=== PATIENT | male | born 1945 | race African-American/Black ===

== ENCOUNTER 2018-09-15 22:00 | Inpatient (IN) | payer MEDICARE, MEDICAID ==
[~2018-09-15 22:00] MED LIST: ISOVUE-370 76%-LOCM 1 ML ONE
[2018-09-15] MEDS ORDERED: Nitroglycerin 2% Ointment 1 INCH/1 GM Packet ONE (22:14)
--- NOTE | 2018-09-16 00:09 | CT ---
CTA CHEST AND ABDOMEN: 09/15/18 Axial tomograms obtained through the chest and abdomen following an aortogram protocol. INDICATIONS: Question abdominal aortic aneurysm. FINDINGS: Thoracic aorta shows no evidence of aneurysm or dissection. The abdominal aorta shows no evidence of aneurysm or dissection. The aortic branches including celiac artery, superior mesenteric artery and r enal arteries are unremarkable with no significant atherosclerotic change or stenosis. Aortic bifurc ation unremarkable. Iliac arteries are normal and symmetric in appearance. The lung antonio are clear. No infiltrate or effusion. Mediastinum unremarkable. The pulmonary arteri es show moderate opacification. There is no evidence of proximal pulmonary embolus. Soft tissues of the abdomen show unremarkable liver, spleen, pancreas, adrenal glands and kidneys. Sm all cystic lesions in the kidneys are too small to adequately characterize. Bowel loops unremarkable. Urinary bladder shows mild bladder wall thickening but is incompletely evaluated. No adenopathy. IMPRESSION: No evidence of thoracic or abdominal aortic aneurysm or dissection. No acute process identified. POS: [facility]
[2018-09-16] MEDS ORDERED: niCARdipine 20MG In NaCl 20 MG/200 ML BAG ONE (01:23)
--- NOTE | 2018-09-16 01:29 | PDOC.FPRHP ---
- History of Present Illness Chief Complaint: Chest pain History of Present Illness: This is a 73 yo male with a pmh of CAD with a stent in 2012, HTN, HLD, CKD 3, DM2 who presents from an outside ER with a cc chest pain. He states the pain has been present for the last week with worsening in the last 3 days. He reports the pain at rest and with exertion. He states the pain is a dull ache, 8 /10 at its worst with radiation to his left arm. He states this pain is not like the pain he had when he had his stent placed in 2012. He reports associated nausea, SOB, and dizziness. Denies diaphoresis. ED Course: 500 ml NS bolus Nitro paste - Allergies/Adverse Reactions Allergies Allergy/AdvReac Type Severity Reaction Status Date / Time tramadol AdvReac decreased Verified 09/16/18 02:26 urinary output - Home Medications Medication Instructions Recorded Confirmed Type Amlodipine [Norvasc] 10 mg PO DAILY 12/25/12 09/16/18 History Aspirin 81 mg PO DAILY 01/10/13 09/16/18 History Albuterol Sulfate [Proair HFA] 2 puff INH Q6HR PRN 07/15/13 09/16/18 History Levemir Flexpen [Levemir FlexPen] 25 units SC Q12HR #0 pen 07/17/13 09/16/18 Rx Lisinopril/Hydrochlorothiazide 1 tablet PO DAILY 07/17/13 09/16/18 History [Lisinopril-Hctz 20-25 mg Tab] Metoprolol Succinate [Toprol XL] 50 mg PO HS #0 tab 07/17/13 09/16/18 Rx metFORMIN [Glucophage] 1,000 mg PO BID-WM #0 tab 07/17/13 09/16/18 Rx Insulin Lispro [Humalog Kwikpen] 2 - 10 unit SQ ASDIR 09/16/18 09/16/18 History - History PMHx: CAD with a stent in 2012, HTN, HLD, CKD 3, DM2 PSHx: lipoma of neck, orif pelvic fracture FHx: noncontributory Social: occasional alcohol, marijuana abuse - Review of Systems General: denies: fever/chills, weight/appetite/sleep changes, night sweats, fatigue Eyes: denies: eye pain, vision changes ENT: denies: nasal congestion, rhinorrhea Respiratory: reports: shortness of breath (mild). denies: cough, congestion Cardiovascular: reports: chest pain. denies: palpitation, edema, paroxysmal nocturnal dyspnea, orthopnea Gastrointestinal: reports: nausea. denies: vomiting, diarrhea, constipation, abdominal pain, GI bleeding Genitourinary: denies: incontinence, dysuria Skin: denies: rashes, lesions Musculoskeletal: denies: pain, tenderness Neurological: reports: other (presyncopal episode with pain today). denies: numbness, syncope Psychological: denies: anxiety, depression - Vital signs BP: 220/100 HR: 68 RR: 16 Tmax: 97.7 Pox: 98% on ra Wt: 84 kg - Physical Exam Constitutional: NAD, awake, alert and oriented, well developed HEENT: normocephalic and atraumatic, PERRLA, EOMI, conjunctiva clear, grossly normal vision, grossly normal hearing, MMM Neck: supple, FROM, trachea midline, no JVD, no bruits Chest: no-tender to palpation, no lesions Heart: RRR, normal S1/S2, no murmurs/rubs/gallops, pulses present Lungs: CTAB, no respiratory distress, good air movement, no wheezing Abdomen: soft, non-tender, bowel sounds present Musculoskeletal: normal structure, normal tone Neurological: CN II-XII intact Skin: good turgor, capillary refill <2 seconds Heme/Lymphatic: no unusual bruising or bleeding Psychiatric: normal mood and affect, intact recent and remote memory FMR H&P: Results - Labs Result Diagrams: 09/16/18 04:13 09/16/18 04:12 Lab results: Creatine Kinase 186 U/L (30-200) 09/15/18 22:26 - EKG Interpretation EKG: sinus jeremy with first degree heart block - Radiology Interpretation CT scan - chest Status: report reviewed by me (Dissection protocol -No signs of disection or other acute process) Chest x-ray Status: report reviewed by me (No acute process) FMR H&P: A/P - Problem List (1) HTN (hypertension) Current Visit: Yes Status: Acute Code(s): I10 - ESSENTIAL (PRIMARY) HYPERTENSION (2) CAD (coronary artery disease) Current Visit: Yes Status: Acute Code(s): I25.10 - ATHSCL HEART DISEASE OF [place] CORONARY ARTERY W/O ANG PCTRS (3) HLD (hyperlipidemia) Current Visit: Yes Status: Acute Code(s): E78.5 - HYPERLIPIDEMIA, UNSPECIFIED (4) DM2 (diabetes mellitus, type 2) Current Visit: Yes Status: Acute (5) CKD (chronic kidney disease) stage 3, GFR 30-59 ml/min Current Visit: Yes Status: Acute Code(s): N18.3 - CHRONIC KIDNEY DISEASE, STAGE 3 (MODERATE) (6) Chest pain Current Visit: No Status: Active Code(s): R07.9 - CHEST PAIN, UNSPECIFIED Comment: - Plan This is a 73 yo male with a pmh of CAD with a stent in 2012, HTN, HLD, CKD 3, DM2 Hypertensive emergency -Admit to CCU -Initial pressures around 220/100 -Start Cardene drip and titrate to below 180 systolic -Aortic dissection ruled out -No neurological deficits Atypical chest pain, ACS rule out vs symptomatic bradycardia -Trend troponins, negative x2 -Consult cardiology in the AM -Pending Echo 2nd degree AV heart block, mobitz type 1 -Asymptomatic, transient bradycardia into the upper 30s to 40s -Will consider pacing if pt becomes symptomatic CAD -Continue home meds HTN -Hold home meds, cardene drip as above DM2 -Continue home meds -ACHS glu checks -SSI HLD -Continue home meds CKD3 -Appears near baseline Code: full Prophylaxis: SCDs Family: none at bedside Fluids: SL Diet: NPO Disposition: DC in 2-3 days PCP: Dr. Arteaga FMR H&P: Upper Level - Plan Date/Time: 09/16/18 0128 IJavad MD, have evaluated this patient and agree with findings/plan as outlined by internal communications manager resident. Pertinent changes/additions are listed here. 73 y/o M w/ PMHx of CAD s/p stent placement and 1st degree AV heart block presents as a TXR from outside ER for admission for new onset Mobtiz Type 2 and chest pain w/ radiation into the left arm that started approx..1 week ago, but has been worsening in the past 3 days. w/ cough, SOB, and diaphoresis. Pt was given SL nitro and ASA prior to transfer to [facility]. Vitals per internal communications manager note BUN - 23 Cr 1.73 Trop 0.028 - 0.025 BNP 163.[address] Dissection protocol - EKG Mobitz Type I AV block on EKG from [facility]. Outside ER EKG showing constant prolonged WI interval with a pause as there is no P-wave w/ dropped QRS ECHO 09/09/12 EF 50-55% mild lateral wall hypokinesis. 73 y/o M w/: 1. Hypertensive Emergency - Pt w/ sxs of typical chest pain in setting of elevated SBP >200 w/ nitro paste on and newly elevated BNP w/ no hx of CHF - Will admit patient to the IMCU on a cardene gtt with weaning as tolerated to control BPs w/ goal decrease in MAP 10-20% over the first hour and an additional 5-15% over the next 23 hours. - Cont. to trend cardiac enzymes and monitor on telemetry - Order for repeat ECHO as his last one done here was from 2012 placed with plans to consult cardiology in the AM for further eval - Cont. w/ ASA started in ER and will place on high intensity statin 2. Typical Chest Pain - Pt w/ chest pain w/ radiation into shoulder relieved with nitro - No evidence of acute ischemia on EKG and w/ negative troponins - Hx of stent placement, will plan to touch base with cardiology in the AM for further recommendations for repeat cath vs stress 3. Mobitz Type I AV Block - Possible capture of brief episode of mobitz type 2 on EKG from outside ER. Upon review, constant WI interval with what appears to be a pause as there is no p-wave during this interval indicating a dropped beat. Appears to be in Mobitz I which he has a hx of. Have not seen a repeat of this on repeat EKG and no evidence of Mobitz II at this time. Likely patient had a pause on prior EKG obtained at outside ER mimicking mobitz II. Will continue to monitor continuously on telemetry and plan to consult cardiology in the morning for further eval 3. DEE on CKD - Likely 2/2 #1, will continue to monitor for improvement w/ resolution of elevated BPs 4. Other chronic medical problems per internal communications manager note Addendum - Attending - Attending Attestation Date/Time: 09/16/181935 I personally evaluated the patient and discussed the management with Drs. Rincon to Joanna at time of admission. See separate note. I agree with the History, Examination, Assessment and Plan documented above with any addition or exceptions noted below.
--- NOTE | 2018-09-16 01:40 | PDOC.EVN ---
Event Note - Event Note Event Note: Date/Time: 09/16/18 0137 I personally evaluated the patient and discussed the management with Dr. Rincon and Joanna at time of admission. I agree with the History, Examination, Assessment and Plan as discussed. While the EKGs do not clearly demonstrate at 2nd degree, type II heart block, there have been episodes on the telemetry that there is a progressive lengthening of the [place] inerval with eventual missed QRS following a p wave. Cardizem drip for BP control ordered.
[2018-09-16] MEDS ORDERED: Ondansetron PF 4 MG/2 ML Vial IVP PRN ×2 (01:57→03:10)
[2018-09-16] MEDS ORDERED: Ondansetron ODT 4 MG TAB SL PRN (01:57)
[2018-09-16] MEDS ORDERED: Nitroglycerin 2% Ointment 1 INCH/1 GM Packet TOP PRN (01:58)
[2018-09-16 02:09] LABS: Troponin I 0.017 ng/mL (< 0.028)
[2018-09-16 02:25] VITALS: BMI 34.2
[2018-09-16] MEDS ORDERED: Ondansetron ODT 4 MG TAB PO PRN (03:10)
[2018-09-16] MEDS ORDERED: Nitroglycerin 0.4 MG TAB (25 Tab Bottle) PO PRN (03:10)
[2018-09-16] MEDS ORDERED: Acetaminophen 650 MG Suppository PR PRN (03:10)
[2018-09-16] MEDS ORDERED: Morphine 4 MG/ML VIAL SLOW IVP PRN (03:56)
[2018-09-16 05:08] LABS: Anion Gap 10 mmol/L (10-20); BUN (Urea Nitrogen) 22 mg/dL (8.4-25.7); Calc. Creatinine Clearance 53 mL/min (70-130); Calcium 8.8 mg/dL (7.8-10.44); Carbon Dioxide 27 mmol/L (23-31); Chloride 105 mmol/L (98-107); Estimated GFR-MDRD 54; Glucose 234 mg/dL (83-110); Potassium 3.9 mmol/L (3.5-5.1); Sodium 138 mmol/L (136-145)
[2018-09-16 05:22] LABS: CKMB 2.3 ng/mL (0-6.6)
[2018-09-16] MEDS ORDERED: PROVENTIL INHALER 6.7 G (200 INHALATIONS) INH PRN (05:32)
[2018-09-16 07:36] LABS: Hemoglobin 11.8 g/dL (14.0-18.0); Mean Corpuscular Volume 84.3 fL (78.0-98.0); Mean Platelet Volume 9.1 fL (7.4-10.4); Platelet Count 193 thou/uL (130-400); RBC Distribution Width 12.5 % (11.5-14.5); Red Blood Cell (RBC) Count 4.38 mill/uL (4.70-6.10); White Blood Cell (WBC) Count 7.2 thou/uL (4.8-10.8)
[2018-09-16] MEDS ORDERED: metFORMIN 500 MG TAB PO SCH (08:00)
[2018-09-16 08:15] LABS: Band 1 % (5-11); Lymphocytes 45 % (21-51); MDiff Complete? YES; Monocytes 4 % (0-10); Neutrophil 49 % (42-75); Platelet Morphology Comment Appears Adequate; Polychromasia SLIGHT = 2-3 cells (100X) (0-2/hpf); Reactive Lymphocytes 1 % (0-10)
[2018-09-16 08:25] LABS: Troponin I 0.092 ng/mL (< 0.028)
[2018-09-16] MEDS: Famotidine/PF 20 mg/2ml Vial SLOW IVP SCH (08:40)
[2018-09-16] MEDS: Famotidine 20 MG TAB PO SCH (08:41)
[2018-09-16] MEDS ORDERED: Non-Formulary Item 1 EACH (Levemir Flexpen [Levemir Flexpen] 25 UNITS) SC SCH (09:00)
[2018-09-16] MEDS ORDERED: Aspirin 325 MG TAB PO SCH (09:00)
[2018-09-16] MEDS: Insulin Glargine 25 UNITS in Pre-Filled Syringe 1 EACH SC SCH ×2 (09:31→22:15)
[2018-09-16] MEDS: Aspirin Chewable 81 MG TAB PO SCH (09:31)
[2018-09-16] MEDS ORDERED: niCARdipine HCl 25 MG in Sodium Chloride 0.9% 250 ML 240 ML IVPB SCH (09:45)
[2018-09-16] MEDS ORDERED: Amlodipine 10 MG TAB PO SCH (10:15)
[2018-09-16] MEDS ORDERED: Lisinopril/Hydrochlorothiazide 20/25 mg Tablet PO SCH (10:15)
[2018-09-16] MEDS: Amlodipine 10 MG TAB PO SCH (10:19)
[2018-09-16] MEDS: Lisinopril/Hydrochlorothiazide 20/25 mg Tablet PO SCH (10:22)
--- NOTE | 2018-09-16 10:56 | PDOC.EVN ---
Addendum - Attending - Attending Attestation Date/Time: 09/16/18 1047 I personally evaluated the patient and discussed the management with Dr. Thao I agree with the History, Examination, Assessment and Plan documented by resident in separate note. Patient hemodynamically stable will convert PO HTN rx wean off cardene as tolerated. Telemetry tracing this AM appears 2nd degree heart block ? Mobitz 1 with progressively lengthening MD with dropped conduction then appeared NSR . HR 70s note troponins trending up this am this am. Regard Heart Block no electrolyte abnormalities, no suspect RX, TFTs nl ?, PMHX of significant CAD no structural HD known, Cardiology onboard and appreciate recommendations.
[2018-09-16] MEDS ORDERED: Dextrose 50% Abboject 50 ML SYRINGE SLOW IVP PRN (12:09)
[2018-09-16] MEDS ORDERED: Insulin Regular 300 UNITS/3 ML VIAL SC PRN (12:09)
[2018-09-16] MEDS ORDERED: Dextrose 5% in Water 1,000 ML IV PRN (12:09)
[2018-09-16] MEDS: Insulin Regular 300 UNITS/3 ML VIAL SC PRN (13:09)
[2018-09-16] MEDS: hydrALAZINE 20 MG/ML VIAL SLOW IVP PRN ×2 (15:04→22:16)
--- NOTE | 2018-09-16 16:33 | CON ---
DATE OF CONSULTATION: 09/16/2018 SERVICE: Pulmonary Medicine. REASON FOR CONSULT: ICU patient. HISTORY OF PRESENT ILLNESS: The patient is a very pleasant 73-year-old white male with past medical history significant for essentially nothing. Six months ago, he had a stress test that was essentially unremarkable. He presented to the hospital with 1-week history of increasing chest discomfort. In the emergency department , he was discovered to have severe range blood pressures. He also had an intermittent block characterized by increasing MD intervals followed by a dropped beat. He was tucked into the ICU for closer observation and aggressive blood pressure management. Overnight, his Cardene drip has been weaned down to low-dose. His blood pressure is under marginal control and his chest pain has resolved. He denies any current fevers, chills, cough, sputum production, nausea, vomiting, diarrhea, abdominal discomfort, dysuria, frequency, hot, red, swollen joints, rashes, or arthralgia. PAST MEDICAL HISTORY: 1. Coronary artery disease with history of PCI. 2. Hypertension. 3. Dyslipidemia. 4. Chronic kidney disease 3. 5. Type 2 diabetes mellitus. PAST SURGICAL HISTORY: 1. Cardiac catheterization. 2. Lipoma of neck. 3. ORIF of a pelvic fracture. SOCIAL HISTORY: He uses alcohol and marijuana occasionally, but no amphetamines/cocaine. He denies any alcohol or other illicit drugs. He has no exposure to chemicals, dust, asbestos, or tuberculosis. FAMILY HISTORY: Noncontributory. ALLERGIES: TRAMADOL. MEDICATIONS: List of his inpatient medications were reviewed. No specific updates were made at this time. REVIEW OF SYSTEMS: General; head, eyes, ears, nose, and throat; cardiovascular, respiratory, GI, , musculoskeletal, neurologic, and skin are negative, except as mentioned in the HPI. PHYSICAL EXAMINATION: VITAL SIGNS: Afebrile, pulse 71, blood pressure 173/89, respirations 16, saturation 100% on room air. GENERAL: The patient is awake and alert, in no apparent distress. LUNGS: Decent air entry with a minimally prolonged expiratory phase. No rhonchi or crackles are appreciated. HEART: Normal rate and regular. ABDOMEN: Soft, nontender, and nondistended. Bowel sounds are positive. MUSCULOSKELETAL: No cyanosis or clubbing. No pitting in the bilateral lower extremities. NEUROLOGIC: Grossly nonfocal. LABORATORY DATA: WBC 7.2, hemoglobin 11.8, platelets 193,000. Band count is low. Lymphocyte count is normal at 45%. Creatinine 1.54, which is at his baseline of 1.3 to 1.4. Basic metabolic profile is otherwise unremarkable. Troponin is gently uptrending to 0.09. CK-MB remains low. CK is also in the low. IMAGING STUDIES: 1. CT dissection protocol demonstrates no evidence of dissection. No evidence of acute abdominal aortic aneurysm. There is no acute cardiopulmonary abnormality identified. No evidence of large pulmonary emboli is present. Visualized portion of the abdomen is unremarkable. 2. His EKG shows findings consistent with a Mobitz type 1 block. ASSESSMENT: 1. Hypertensive emergency. 2. Coronary artery disease. 3. [id number]-[id number] myocardial infarction, secondary to demand from blood pressure/stress. 4. Mobitz I block, new onset. DISCUSSION AND PLAN: We will wean away the patient's blood pressure medications and reintroduce his p.o. medications. At this point, from my perspective he is stable for transition to the telemetry unit provided we can maintain decent blood pressure control. When he arrives there, he will have no further requirement for inpatient Pulmonary or Critical Care opinion, and I will sign off. Please call with additional questions or concerns through time. 70 minutes have been devoted to this patient in various activities. I personally reviewed all imaging studies and laboratory data noted within this document. For fifty percent of this time, I was interacting with the patient at the bedside or coordinating care with the care team. For the remainder of the time I was immediately available to the patient in the hospital unit. Job ID: [id number] MTDD
--- NOTE | 2018-09-16 19:33 | CON ---
DATE OF CONSULTATION: 09/16/2018 REASON FOR CONSULTATION: Hypertensive urgency. HISTORY OF PRESENT ILLNESS: Mr. Abernathy is a pleasant 73-year-old gentleman, who was seen and evaluated in the past. He has a history of CAD, status post stent placement. He underwent coronary angiography in 2012, was found to have moderate coronary artery disease with a patent stent to the OM branch. He recently presented with abdominal discomfort. He was found to have markedly elevated blood pressure. He states that at home, his blood pressure had been stable. Blood pressure during my visit was 193/113, on IV Cardene. He also complained of lower chest pain associated with abdominal discomfort. PAST MEDICAL HISTORY: 1. Diabetes mellitus. 2. Hypertension. 3. Hyperlipidemia. 4. CAD, status post stent placement. 5. Previous CA. ALLERGIES: NONE. HOME MEDICATIONS: Include; 1. Gabapentin. 2. ProAir. 3. Amlodipine. 4. Levemir. 5. Aspirin. 6. Toprol. 7. Lisinopril. REVIEW OF SYSTEMS: A 10-point review of systems is reviewed and as above, otherwise negative. PHYSICAL EXAMINATION: GENERAL: Patient is a pleasant male, who is in no acute distress. The patient appears their stated age. VITAL SIGNS: Blood pressure 160/87, pulse 88, temperature afebrile. NEUROLOGIC: The patient is alert and oriented x3 with no focal neurologic deficits. HEENT: Sclerae without icterus. Mouth has moist mucous membranes with normal pallor. NECK: No JVD. Carotid upstroke brisk. No bruits bilaterally. LUNGS: Clear to auscultation with unlabored respirations. BACK: No scoliosis or kyphosis. CARDIAC: Regular rate and rhythm with normal S1 and S2. No S3 or S4 noted. No significant rubs, murmurs, thrills, or gallops noted throughout the precordium. PMI is not displaced. There is no parasternal heave. ABDOMEN: Soft, nontender, nondistended. No peritoneal signs present. No hepatosplenomegaly. No abnormal striae. EXTREMITIES: 2+ femoral and 2+ dorsalis pedis pulses. No cyanosis, clubbing, or edema. SKIN: No gross abnormalities. PERTINENT LABORATORY DATA: Hemoglobin 11.8. Creatinine 1.54, GFR 54. Peak troponin 0.092. EKG; normal sinus rhythm with LVH. IMPRESSION: 1. Atypical chest pain. 2. Hypertensive urgency. 3. Coronary artery disease. 4. Status post stent placement. RECOMMENDATIONS: Mr. Abernathy symptoms are not consistent with angina. His symptoms likely related to hypertensive urgency. His blood pressure is better currently. We will continue aspirin at 81 q.a.m. He is on amlodipine in addition to RUTHIE inhibitor therapy. May consider low-dose Coreg if needed. His last stress study dated 04/2017 suggested no significant ischemia with normal LVEF. Job ID: [id number]
--- NOTE | 2018-09-17 06:26 | PDOC.CTH ---
Cardiology Progress Note - Subjective Doing well. - Objective Vital Signs Temp Pulse Resp BP BP Pulse Ox 09/17/18 03:25 98.1 F 65 16 146/71 H 97 09/16/18 23:10 84 129/71 09/16/18 22:01 97.7 F 70 17 192/90 H 98 Weight 187 lb 2.759 oz 09/15/18 09/16/18 09/17/18 06:59 06:59 06:59 Intake Total 165 660 Output Total 100 1050 Balance 65 -390 - Physical Examination General/Neuro: alert & oriented x3, NAD Neck: carotid US brisk, no JVD present Lungs: unlabored respirations Heart: RRR Abdomen: NT/ND, soft Extremities: + femoral B - Labs Result Diagrams: 09/16/18 04:13 09/17/18 07:14 Troponin/CKMB CK-MB (CK-2) 2.3 ng/mL (0-6.6) 09/16/18 04:12 Troponin I 0.092 ng/mL (< 0.028) H 09/16/18 07:35 - Assessment/Plan HTN urgency CAD S/p stnet placmement CL in 2018 normal without ischemia CP felt to be atypical and likely related to increase BP Goal is aggressive BP mnangment When BP stable,ok for discharge FU with me in 2-3 weeks
--- NOTE | 2018-09-17 07:04 | PDOC.FM ---
- Subjective Subjective: Pt resting in bed. Denies any acute events overnight. Denies any fever or chills. Denies any chest pain episodes or SOB. Denies any n/v/d/c. Pt reports feeling much better. - Objective MAR Reviewed: Yes Vital Signs & Weight: Vital Signs (12 hours) Temp Pulse Resp BP BP Pulse Ox 09/17/18 03:25 98.1 F 65 16 146/71 H 97 09/16/18 23:10 84 129/71 09/16/18 22:01 97.7 F 70 17 192/90 H 98 Weight Weight 84.9 kg Most Recent Monitor Data Heart Rate from ECG 78 NIBP 162/87 NIBP BP-Mean 112 Respiration from ECG 15 SpO2 88 I&O: 09/16/18 09/17/18 09/18/18 06:59 06:59 06:59 Intake Total 165 660 Output Total 100 1050 Balance 65 -390 Result Diagrams: 09/16/18 04:13 09/16/18 04:12 EKG Reviewed by me: Yes Radiology Reviewed by me: Yes Radiology: 09/16 ECHO shows EF 50-55%. Hypokinetic motion of inferior wall of left ventricle. E/A flow reversal suggesting diastolic dysfunction. Phys Exam - Physical Examination Constitutional: NAD HEENT: PERRLA, moist MMs Neck: no nodes, no JVD, supple, full ROM Respiratory: no wheezing, no rales, no rhonchi, clear to auscultation bilateral Cardiovascular: RRR, no significant murmur, no rub Gastrointestinal: soft, non-tender, no distention, positive bowel sounds Musculoskeletal: no edema, pulses present Neurological: non-focal, normal sensation, moves all 4 limbs Lymphatic: no nodes Psychiatric: normal affect, A&O x 3 Skin: no rash, normal turgor, cap refill <2 seconds Dx/Plan (1) Hypertensive urgency Code(s): I16.0 - HYPERTENSIVE URGENCY Status: Acute (2) CAD (coronary artery disease) Code(s): I25.10 - ATHSCL HEART DISEASE OF [place] CORONARY ARTERY W/O ANG PCTRS Status: Acute (3) CKD (chronic kidney disease) stage 3, GFR 30-59 ml/min Code(s): N18.3 - CHRONIC KIDNEY DISEASE, STAGE 3 (MODERATE) Status: Acute (4) DM2 (diabetes mellitus, type 2) Status: Acute (5) HLD (hyperlipidemia) Code(s): E78.5 - HYPERLIPIDEMIA, UNSPECIFIED Status: Acute (6) HTN (hypertension) Code(s): I10 - ESSENTIAL (PRIMARY) HYPERTENSION Status: Acute - Plan Plan: This is a 73 yo male with a pmh of CAD with a stent in 2012, HTN, HLD, CKD 3, DM2 Hypertensive Urgency -Initial pressures around 220/100. Pt was titrated of cardene drip yesterday afternoon. -BP stable but still elevated to 160's with some higher to 190's. -Cardiology Consulted- Dr. Estrella. Believes chest pain from elevated HTN. Added carvedilol today to help with BP. -Will want to continue with aggressive BP control. Atypical chest pain, ACS rule out vs symptomatic bradycardia -Trend troponins, negative x3. Elevation likely due to demand and overwork from elevated BP -Cardiology consulted- Plan as above. Chest pain likely related to high elevated BP. -ECHO shows EF 50-55% and signs of diastolic dysfunction. No sign of fluid overload this time. 2nd degree AV heart block, mobitz type 1 -Asymptomatic, -Cardiology Consulted- Does not think needs pacer at this time. No sx's related CAD -Continue home meds HTN -Hold home meds, Carvedilol added DM2 -Continue home meds -ACHS glu checks -SSI HLD -Continue home meds CKD3 -Appears near baseline -Awaiting BMP today.
[2018-09-17 07:42] LABS: Anion Gap 11 mmol/L (10-20); BUN (Urea Nitrogen) 19 mg/dL (8.4-25.7); Calc. Creatinine Clearance 57 mL/min (70-130); Calcium 8.7 mg/dL (7.8-10.44); Carbon Dioxide 25 mmol/L (23-31); Chloride 106 mmol/L (98-107); Estimated GFR-MDRD 59; Glucose 77 mg/dL (83-110); Potassium 3.8 mmol/L (3.5-5.1); Sodium 138 mmol/L (136-145)
[2018-09-17] MEDS: Amlodipine 10 MG TAB PO SCH (08:54)
[2018-09-17] MEDS: Aspirin Chewable 81 MG TAB PO SCH (08:55)
[2018-09-17] MEDS: Famotidine 20 MG TAB PO SCH (08:55)
[2018-09-17] MEDS: Lisinopril/Hydrochlorothiazide 20/25 mg Tablet PO SCH (08:55)
[2018-09-17] MEDS: Carvedilol 3.125 MG TAB PO SCH ×2 (08:55→20:44)
[2018-09-17] MEDS: Insulin Glargine 25 UNITS in Pre-Filled Syringe 1 EACH SC SCH ×2 (08:56→20:45)
[2018-09-17] MEDS: Famotidine/PF 20 mg/2ml Vial SLOW IVP SCH (08:57)
--- NOTE | 2018-09-17 10:48 | PRG ---
DATE OF SERVICE: 09/17/2018 Mr. Abernathy is a 73-year-old man, who was admitted with a hypertensive urgency with a systolic blood pressure in excess of 220. He was initially started on a Cardene drip, but is now on aggressive oral management. This morning, his blood pressure is 163/85. He is completely asymptomatic. He is awake, alert, and even cheerful. We will continue with aggressive oral management of his medications and likely discharge him later today or tomorrow. He will need close followup with his PCP. Job ID: [id number]
[2018-09-17] MEDS: Acetaminophen 325 MG TAB PO PRN (15:50)
--- NOTE | 2018-09-18 06:17 | PDOC.FM ---
- Subjective Subjective: Pt up in bed. Pt denies any acute events overnight. Denies any Headache, vision changes, lightheadness. Denies any SOB. Reports some mild chest pain that went away. Denies any palpitations. Denies any n/v/d/c. Denies any swelling. Pt has not other questions or concerns. - Objective MAR Reviewed: Yes Vital Signs & Weight: Vital Signs (12 hours) Temp Pulse Resp BP Pulse Ox 09/18/18 03:24 98.2 F 56 L 18 158/84 H 98 09/18/18 00:00 53 L 152/64 H 09/17/18 20:34 98 F 81 18 185/90 H 98 Weight Weight 84.9 kg Most Recent Monitor Data Heart Rate from ECG 78 NIBP 162/87 NIBP BP-Mean 112 Respiration from ECG 15 SpO2 88 I&O: 09/16/18 09/17/18 09/18/18 06:59 06:59 06:59 Intake Total 653 711 5658 Output Total 100 1050 Balance 65 -390 1140 Result Diagrams: 09/16/18 04:13 09/18/18 06:25 EKG Reviewed by me: Yes Radiology Reviewed by me: Yes (No new imaging to review) Phys Exam - Physical Examination Constitutional: NAD HEENT: PERRLA, moist MMs, oral pharynx no lesions Neck: no nodes, no JVD, supple, full ROM Respiratory: no wheezing, no rales, no rhonchi, clear to auscultation bilateral Cardiovascular: RRR, no significant murmur, no rub Gastrointestinal: soft, non-tender, no distention, positive bowel sounds Musculoskeletal: no edema, pulses present Neurological: non-focal, normal sensation, moves all 4 limbs Psychiatric: normal affect, A&O x 3 Skin: no rash, normal turgor, cap refill <2 seconds Dx/Plan (1) Hypertensive urgency Code(s): I16.0 - HYPERTENSIVE URGENCY Status: Acute (2) CAD (coronary artery disease) Code(s): I25.10 - ATHSCL HEART DISEASE OF [place] CORONARY ARTERY W/O ANG PCTRS Status: Resolved (3) CKD (chronic kidney disease) stage 3, GFR 30-59 ml/min Code(s): N18.3 - CHRONIC KIDNEY DISEASE, STAGE 3 (MODERATE) Status: Acute (4) DM2 (diabetes mellitus, type 2) Status: Acute (5) HLD (hyperlipidemia) Code(s): E78.5 - HYPERLIPIDEMIA, UNSPECIFIED Status: Acute (6) HTN (hypertension) Code(s): I10 - ESSENTIAL (PRIMARY) HYPERTENSION Status: Acute - Plan Plan: This is a 73 yo male with a pmh of CAD with a stent in 2012, HTN, HLD, CKD 3, DM2 Hypertensive Urgency -Initial pressures around 220/100. Pt was titrated of cardene drip 09/16 -BP stable but still elevated to 160's with some higher to 190's. -Cardiology Consulted- Dr. Estrella. Believes chest pain from elevated HTN. Added carvedilol today to help with BP. -Increased carvedilol dose as patient still had elevated bp. -Will want to continue with aggressive BP control. Atypical chest pain, ACS rule out vs symptomatic bradycardia -Trend troponins, negative x3. Elevation likely due to demand and overwork from elevated BP -Cardiology consulted- Plan as above. Chest pain likely related to high elevated BP. -ECHO shows EF 50-55% and signs of diastolic dysfunction. No sign of fluid overload this time. 2nd degree AV heart block, mobitz type 1 -Asymptomatic, -Cardiology Consulted- Does not think needs pacer at this time. No sx's related CAD -Continue home meds HTN -Hold home meds, Carvedilol added and dose increased this morning. DM2 -Continue home meds -ACHS glu checks -SSI HLD -Continue home meds CKD3 -Appears near baseline -Awaiting BMP today. Addendum - Attending - Attending Attestation Date/Time: 09/18/18 1648 I personally evaluated the patient and discussed the management with Dr. Thao. I agree with the History, Examination, Assessment and Plan documented above with any addition or exceptions noted below. Patient here for original HTN emergency and NSTEMI type 2 requiring Cardene IV. He is doing better today and denies complaints. We are escalating his anti HTN therapy this morning as pressures are still above goal. He is asymptomatic from his Type 1 second degree heart block, no further interventions per cardiology. If can get BP controlled, possible discharge later today.
[2018-09-18 06:49] LABS: Anion Gap 11 mmol/L (10-20); BUN (Urea Nitrogen) 23 mg/dL (8.4-25.7); Calc. Creatinine Clearance 55 mL/min (70-130); Carbon Dioxide 32 mmol/L (23-31); Chloride 100 mmol/L (98-107); Estimated GFR-MDRD 57; Glucose 116 mg/dL (83-110); Potassium 3.8 mmol/L (3.5-5.1); Sodium 139 mmol/L (136-145)
[2018-09-18] MEDS: Lisinopril/Hydrochlorothiazide 20/25 mg Tablet PO SCH (08:56)
[2018-09-18] MEDS: Amlodipine 10 MG TAB PO SCH (08:56)
[2018-09-18] MEDS: Famotidine 20 MG TAB PO SCH (08:56)
[2018-09-18] MEDS: Aspirin Chewable 81 MG TAB PO SCH (08:56)
[2018-09-18] MEDS: Carvedilol 6.25 MG TAB PO SCH ×2 (08:56→17:29)
[2018-09-18] MEDS: Famotidine/PF 20 mg/2ml Vial SLOW IVP SCH (08:57)
[2018-09-18] MEDS: Insulin Glargine 25 UNITS in Pre-Filled Syringe 1 EACH SC SCH ×2 (11:53→21:03)
[2018-09-18] MEDS: hydrALAZINE 20 MG/ML VIAL SLOW IVP PRN (12:16)
[2018-09-18] MEDS: Acetaminophen 325 MG TAB PO PRN ×2 (12:16→21:02)
[2018-09-18] MEDS ORDERED: Lisinopril 20 MG TAB PO SCH (14:15)
[2018-09-18] MEDS: Insulin Regular 300 UNITS/3 ML VIAL SC PRN (17:29)
[2018-09-18] MEDS ORDERED: Carvedilol 6.25 MG TAB PO SCH (18:00)
--- NOTE | 2018-09-19 07:27 | PDOC.FM ---
- Subjective Subjective: Pt resting comfortably in bed sleeping. Pt denies any acute events overnight. Denies any chest pain. Denies any cough, SOB or swelling. Pt denies any n/v/d/ c. Denies any pain. Pt reports getting up and moving around okay. - Objective MAR Reviewed: Yes Vital Signs & Weight: Vital Signs (12 hours) Temp Pulse Resp BP BP BP BP 09/19/18 03:44 97.4 F L 54 L 18 154/72 H 09/19/18 00:15 64 128/68 09/18/18 21:02 180/85 H 09/18/18 20:00 98.8 F 94 16 180/85 H Pulse Ox 09/19/18 03:44 100 09/19/18 00:15 09/18/18 21:02 09/18/18 20:00 100 Weight Weight 189.5 g Most Recent Monitor Data Heart Rate from ECG 78 NIBP 162/87 NIBP BP-Mean 112 Respiration from ECG 15 SpO2 88 I&O: 09/18/18 09/19/18 09/20/18 06:59 06:59 06:59 Intake Total 1640 1275 Output Total 950 Balance 1640 325 Result Diagrams: 09/16/18 04:13 09/18/18 06:25 EKG Reviewed by me: Yes Radiology Reviewed by me: Yes (No new imaging to review) Phys Exam - Physical Examination Constitutional: NAD HEENT: moist MMs, sclera anicteric Neck: no nodes, no JVD, supple, full ROM Respiratory: no wheezing, no rales, no rhonchi, clear to auscultation bilateral Cardiovascular: RRR, no significant murmur, no rub Gastrointestinal: soft, non-tender, no distention, positive bowel sounds Musculoskeletal: no edema, pulses present Neurological: non-focal, normal sensation, moves all 4 limbs Lymphatic: no nodes Psychiatric: normal affect, A&O x 3 Skin: no rash, normal turgor, cap refill <2 seconds Dx/Plan (1) Hypertensive urgency Code(s): I16.0 - HYPERTENSIVE URGENCY Status: Acute (2) CAD (coronary artery disease) Code(s): I25.10 - ATHSCL HEART DISEASE OF [place] CORONARY ARTERY W/O ANG PCTRS Status: Resolved (3) CKD (chronic kidney disease) stage 3, GFR 30-59 ml/min Code(s): N18.3 - CHRONIC KIDNEY DISEASE, STAGE 3 (MODERATE) Status: Acute (4) DM2 (diabetes mellitus, type 2) Status: Acute (5) HLD (hyperlipidemia) Code(s): E78.5 - HYPERLIPIDEMIA, UNSPECIFIED Status: Acute (6) HTN (hypertension) Code(s): I10 - ESSENTIAL (PRIMARY) HYPERTENSION Status: Acute - Plan Plan: This is a 73 yo male with a pmh of CAD with a stent in 2012, HTN, HLD, CKD 3, DM2 Hypertensive Urgency -Initial pressures around 220/100. Pt was titrated of cardene drip 09/16 -BP still had elevated BP despite increase in carvedilol. -Increased Lisinopril to 40 mg and Carvedilol to 12.5 mg. Will continue to monitor. -Will check Renal US and other causes for possible secondary HTN -Cardiology Consulted- Dr. Estrella. Believes chest pain from elevated HTN. Added carvedilol today to help with BP. -Will want to continue with aggressive BP control. Atypical chest pain, ACS rule out vs symptomatic bradycardia -Trend troponins, negative x3. Elevation likely due to demand and overwork from elevated BP -Cardiology consulted- Plan as above. Chest pain likely related to high elevated BP. -ECHO shows EF 50-55% and signs of diastolic dysfunction. No sign of fluid overload this time. 2nd degree AV heart block, mobitz type 1 -Asymptomatic, -Cardiology Consulted- Does not think needs pacer at this time. No sx's related CAD -Continue home meds HTN Carvedilol and Lisinopril increased. -BP have remained high. will explore causes for secondary hypertension at this time. DM2 -Continue home meds -ACHS glu checks -SSI HLD -Continue home meds CKD3 -Appears near baseline -Cr stable. Addendum - Attending - Attending Attestation Date/Time: 09/19/18 6985 I personally evaluated the patient and discussed the management with Dr. Thao. I agree with the History, Examination, Assessment and Plan documented above with any addition or exceptions noted below. Patient here for HTN emergency that is now resolved. He continues to have labile and high BP despite escalation of therapy, need to consider secondary causes and suspect FABY is a potential cause as he tends to run high in the overnight and morning times. He had some bradycardia overnight with escalation of Coreg, will decrease that and swap Amlodipine for Procardia. Monitor BP through the day but potential discharge if BP well controlled. Needs good outpatient follow up to monitor BP and for likely sleep study.
[2018-09-19] MEDS ORDERED: Carvedilol 6.25 MG TAB PO SCH (08:00)
[2018-09-19] MEDS: NIFEdipine XL 60 MG TAB PO SCH (08:44)
[2018-09-19] MEDS: Famotidine 20 MG TAB PO SCH (08:44)
[2018-09-19] MEDS: Carvedilol 3.125 MG TAB PO SCH ×2 (08:45→16:14)
[2018-09-19] MEDS: Hydrochlorothiazide 25 MG TAB PO SCH (08:45)
[2018-09-19] MEDS: Lisinopril 20 MG TAB PO SCH (08:45)
[2018-09-19] MEDS: Aspirin Chewable 81 MG TAB PO SCH (08:45)
[2018-09-19] MEDS: Famotidine/PF 20 mg/2ml Vial SLOW IVP SCH (08:46)
[2018-09-19] MEDS: Insulin Glargine 25 UNITS in Pre-Filled Syringe 1 EACH SC SCH ×2 (08:46→22:26)
[2018-09-19] MEDS ORDERED: Labetalol HCl 100 MG/20 ML VIAL SLOW IVP PRN (11:16)
--- NOTE | 2018-09-19 11:26 | ULT ---
RENAL ULTRASOUND WITH DOPPLER: HISTORY: Hypertension. COMPARISON: None. TECHNIQUE: Sagittal and transverse imaging of the kidneys performed. The kidneys were also interrogated with gr ay scale, color flow, Doppler imaging, and spectral waveform analysis. FINDINGS: Suboptimal evaluation of both renal cortices. Solid masses could easily be obscured. The right kidn ey measures 9.8 x 4.4 x 4.6 cm. The left kidney measures 9.4 x 5.8 x 5.3 cm. Bilaterally, no hydron ephrosis. Bilateral ureteral jets identified. Unremarkable urinary bladder with a prevoid volume of 465 mL. RENAL DOPPLER: Right renal artery 31.cm/s. Left renal artery 45.1 cm/s. Aorta 37.3 cm/s. Right renal artery to aorta ratio 0.84. Left renal artery to aorta ratio 1.21. Right arcuate resistive index 0.76. Left arcuate resistive index 0.76. IMPRESSION: Increased resistive index in the left and right arcuate arteries. POS: OFF
--- NOTE | 2018-09-20 06:43 | PDOC.FM ---
- Subjective Subjective: Ubaldo Abernathy seen at bedside this morning. He is doing well, he has no complaints and there were no acute events overnight. Since his antihypertensive regimen has been adjusted, he has not become bradycardic, but his pressures remain in the 160s systolic. He has also had worsening kidney function this morning and Dr. August, nephro, was consulted this morning. Patient denies any chest pain, palpitations, fever, chills, dyspnea, n/v. - Objective MAR Reviewed: Yes Vital Signs & Weight: Vital Signs (12 hours) Temp Pulse Resp BP Pulse Ox 09/20/18 04:00 97.7 F 56 L 13 159/76 H 97 09/19/18 23:58 98.7 F 70 15 148/73 H 96 09/19/18 20:00 98.4 F 77 16 173/86 H 97 09/19/18 19:42 97 Weight Weight 189.5 g Most Recent Monitor Data Heart Rate from ECG 78 NIBP 162/87 NIBP BP-Mean 112 Respiration from ECG 15 SpO2 88 I&O: 09/18/18 09/19/18 09/20/18 06:59 06:59 06:59 Intake Total 1640 1275 725 Output Total 950 950 Balance 1640 325 -225 Result Diagrams: 09/20/18 06:52 09/20/18 06:52 Phys Exam - Physical Examination Constitutional: NAD HEENT: moist MMs, sclera anicteric Neck: supple, full ROM Respiratory: no wheezing, no rales, no rhonchi, clear to auscultation bilateral Cardiovascular: RRR, no significant murmur Gastrointestinal: soft, non-tender, no distention Musculoskeletal: no edema, pulses present Neurological: non-focal, normal sensation, moves all 4 limbs Psychiatric: normal affect, A&O x 3 Skin: no rash, cap refill <2 seconds Dx/Plan (1) Hypertensive urgency Code(s): I16.0 - HYPERTENSIVE URGENCY Status: Acute (2) CKD (chronic kidney disease) stage 3, GFR 30-59 ml/min Code(s): N18.3 - CHRONIC KIDNEY DISEASE, STAGE 3 (MODERATE) Status: Chronic (3) DM2 (diabetes mellitus, type 2) Status: Chronic (4) HLD (hyperlipidemia) Code(s): E78.5 - HYPERLIPIDEMIA, UNSPECIFIED Status: Chronic (5) HTN (hypertension) Code(s): I10 - ESSENTIAL (PRIMARY) HYPERTENSION Status: Chronic - Plan Plan: Hypertensive Urgency -Initial pressures around 220/100. Pt was titrated of cardene drip 09/16 -BPs have improve since recent change in antihypertensive regimen -Current regimen: Carvedilol 3.125 mg BID, Lisinopril 40 mg daily, HCTZ 25 mg daily, Procardia XL 60 mg daily. -Will check Renal US and other causes for possible secondary HTN -Cardiology Consulted- Dr. Estrella. Believes chest pain from elevated HTN. -Will want to continue with aggressive BP control. Atypical chest pain, ACS rule out vs symptomatic bradycardia -Trend troponins, negative x3. Elevation likely due to demand and overwork from elevated BP -Cardiology consulted- Plan as above. Chest pain likely related to high elevated BP. -ECHO shows EF 50-55% and signs of diastolic dysfunction. No sign of fluid overload this time. 2nd degree AV heart block, mobitz type 1 -Asymptomatic -Cardiology Consulted- Does not think needs pacer at this time. No sx's related CAD -Continue home meds HTN -Carvedilol and Lisinopril increased. -BP have remained high, will explore causes for secondary hypertension at this time. DM2 -Continue home meds -ACHS glu checks -SSI HLD -Continue home meds CKD3 -Cr has worsened -Renal US showed abnormalities in arcuate arteries b/l -Consulted Dr. August, appreciate recs FABY: There is concern for FABY, ordered CPAP at night. Pt will need outpatient work up. CCU Progress Note: A/P - Problems (1) Hypertensive urgency Current Visit: Yes Status: Acute Code(s): I16.0 - HYPERTENSIVE URGENCY (2) CKD (chronic kidney disease) stage 3, GFR 30-59 ml/min Current Visit: Yes Status: Chronic Code(s): N18.3 - CHRONIC KIDNEY DISEASE, STAGE 3 (MODERATE) (3) DM2 (diabetes mellitus, type 2) Current Visit: Yes Status: Chronic (4) HLD (hyperlipidemia) Current Visit: Yes Status: Chronic Code(s): E78.5 - HYPERLIPIDEMIA, UNSPECIFIED (5) HTN (hypertension) Current Visit: Yes Status: Chronic Code(s): I10 - ESSENTIAL (PRIMARY) HYPERTENSION Addendum - Attending - Attending Attestation Date/Time: 09/20/18 3517 I personally evaluated the patient and discussed the management with Dr. Engle I agree with the History, Examination, Assessment and Plan documented above with any addition or exceptions noted below. Appreciate recommendations from Nephrology concern with intrinsic kidney disease as well as FABY contributing to refractory HTN albeit better controlled now .D/C home soon with close ooutpatient f/u and sleep study pending Nephrology recommendations.
[2018-09-20 07:06] LABS: #Eosinphils 0.1 thou/uL (0.0-0.7); #Lymphocytes 1.9 thou/uL (1.20-3.40); #Monocytes 0.7 thou/uL (0.11-0.59); #Neutrophils 5.5 thou/uL (1.40-6.50); %Basophils 0.4 % (0.0-1.0); %Eosinophils 0.7 % (0.0-10.0); %Lymphocytes 23.5 % (21.0-51.0); %Monocytes 8.5 % (0.0-10.0); %Neutrophils 66.9 % (42.0-75.0); Hemoglobin 12.9 g/dL (14.0-18.0); Mean Corpuscular HGB CONC 33.1 g/dL (32.0-36.0); Mean Corpuscular Hemoglobin 27.8 pg (27.0-31.0); Mean Corpuscular Volume 84.1 fL (78.0-98.0); Mean Platelet Volume 8.4 fL (7.4-10.4); Platelet Count 181 thou/uL (130-400); RBC Distribution Width 12.6 % (11.5-14.5); Red Blood Cell (RBC) Count 4.64 mill/uL (4.70-6.10); White Blood Cell (WBC) Count 8.1 thou/uL (4.8-10.8)
[2018-09-20 07:22] LABS: Anion Gap 12 mmol/L (10-20); BUN (Urea Nitrogen) 27 mg/dL (8.4-25.7); Calc. Creatinine Clearance 0 mL/min (70-130); Calcium 9.3 mg/dL (7.8-10.44); Carbon Dioxide 29 mmol/L (23-31); Chloride 99 mmol/L (98-107); Estimated GFR-MDRD 50; Glucose 114 mg/dL (83-110); Sodium 136 mmol/L (136-145)
[2018-09-20] MEDS: NIFEdipine XL 60 MG TAB PO SCH (08:47)
[2018-09-20] MEDS: Famotidine 20 MG TAB PO SCH (08:48)
[2018-09-20] MEDS: Carvedilol 3.125 MG TAB PO SCH ×2 (08:48→17:47)
[2018-09-20] MEDS: Aspirin Chewable 81 MG TAB PO SCH (08:48)
[2018-09-20] MEDS: Lisinopril 20 MG TAB PO SCH ×2 (08:48→21:31)
[2018-09-20] MEDS: Hydrochlorothiazide 25 MG TAB PO SCH (08:49)
[2018-09-20] MEDS: Insulin Glargine 25 UNITS in Pre-Filled Syringe 1 EACH SC SCH ×2 (08:55→21:31)
[2018-09-20] MEDS: Famotidine/PF 20 mg/2ml Vial SLOW IVP SCH (09:01)
[2018-09-20] MEDS: Insulin Regular 300 UNITS/3 ML VIAL SC PRN (11:42)
--- NOTE | 2018-09-20 14:16 | CON ---
DATE OF CONSULTATION: REASON FOR CONSULTATION: CKD and hypertension. HISTORY OF PRESENT ILLNESS: A 73-year-old gentleman, who presented to the hospital on September 16 for chest pain. The patient's baseline creatinine was 1.5 increased to 1.6. The patient was ruled out for aortic dissection and had no renal artery stenosis. The patient is on four different blood pressure medication. The patient at this time denies no headache, numbness, tingling, or weakness. Denies any nausea, vomiting, or chest pain. PAST MEDICAL HISTORY: Coronary artery disease with stent, hypertension, CKD stage 3, lipoma of the neck, and pelvic fracture. FAMILY HISTORY: Negative for ESRD. SOCIAL HISTORY: No alcohol or drug use. ALLERGIES: REVIEWED. HOME MEDICATIONS: List reviewed. REVIEW OF SYSTEMS: A 15-point review of systems was performed and negative except as noted above. GENERAL: HEAD: NECK: No swelling or lumps. NOSE: No epistaxis or discharge. EYES: No diplopia or pain. RESPIRATORY: CARDIOVASCULAR: GASTROINTESTINAL: /INDUSTRIAL SALES REPRESENTATIVE: MUSCULOSKELETAL: No joint pain. NEUROPSYCHIATIC SYSTEMS: No suicidal ideation. No ideation. SKIN: Denies any rash or ulcer. CONSTITUTIONAL: No fever or chills. PHYSICAL EXAMINATION: CONSTITUTIONAL: The patient is awake and alert. VITAL SIGNS: Afebrile, pulse 53, breathing 16, and blood pressure 160/77. GENERAL APPEARANCE AND MENTAL STATUS: Fair. HEAD/NECK: Normocephalic. Atraumatic. EYES: EOMI. No deformity. EARS: Clear. No ulcers. NOSE: Intact. No lesions. MOUTH: Clear. No discharge. THROAT: Clear. No exudate. LUNGS: Clear. No crackles. CARDIAC: S1, S2. No rub. ABDOMEN: Benign. Bowel sounds positive. GENITALIA/RECTUM: Mullins absent. BACK/EXTREMITIES: Edema 0+. NEUROLOGICAL: Alert and motor intact. SKIN: LYMPHATICS: LABORATORY DATA: Labs reviewed. ASSESSMENT AND PLAN: Chronic kidney disease stage 3, stable. Hypertension, we would recommend increasing the Procardia to 90 and increasing the lisinopril to 40 b.i.d. Anemia, stable. Medication based on GFR appropriate. We would look for endocrinological causes of hypertension such as secondary hyperaldosteronism. We would recommend checking aldosterone level. Job ID: [id number]
[2018-09-20] MEDS: hydrALAZINE 25 MG TAB PO SCH (21:30)
--- NOTE | 2018-09-21 06:32 | PDOC.FM ---
- Subjective Subjective: Ubaldo Abernathy seen at bedside this morning. He is doing well, he has no complaints and there were no acute events overnight. He was seen by Dr. August yesterday who recommended checking aldosterone. Test result pending. Dr. August also increased lisinopril and procardia and started patient on hydralazine quintin. Pt denies fever, chills, chest pain, dyspnea, nv, abd pain. - Objective MAR Reviewed: Yes Vital Signs & Weight: Vital Signs (12 hours) Temp Pulse Resp BP BP BP BP 09/21/18 03:38 98.4 F 75 16 160/71 H 09/21/18 00:00 75 156/75 H 09/20/18 21:31 180/78 H 09/20/18 21:30 77 180/78 H 09/20/18 20:32 09/20/18 20:00 98.6 F 77 16 180/78 H Pulse Ox 09/21/18 03:38 99 09/21/18 00:00 09/20/18 21:31 09/20/18 21:30 09/20/18 20:32 97 09/20/18 20:00 97 Weight Weight 85.638 kg Most Recent Monitor Data Heart Rate from ECG 78 NIBP 162/87 NIBP BP-Mean 112 Respiration from ECG 15 SpO2 88 I&O: 09/19/18 09/20/18 09/21/18 06:59 06:59 06:59 Intake Total 1275 1325 1338 Output Total 950 950 780 Balance 325 375 558 Result Diagrams: 09/20/18 06:52 09/21/18 11:01 Phys Exam - Physical Examination Constitutional: NAD HEENT: moist MMs, sclera anicteric Neck: supple, full ROM Respiratory: no wheezing, no rales, clear to auscultation bilateral Cardiovascular: RRR, no significant murmur Gastrointestinal: soft, non-tender, no distention Musculoskeletal: no edema, pulses present Neurological: non-focal, normal sensation, moves all 4 limbs Psychiatric: normal affect, A&O x 3 Dx/Plan (1) Hypertensive urgency Code(s): I16.0 - HYPERTENSIVE URGENCY Status: Acute (2) CKD (chronic kidney disease) stage 3, GFR 30-59 ml/min Code(s): N18.3 - CHRONIC KIDNEY DISEASE, STAGE 3 (MODERATE) Status: Chronic (3) DM2 (diabetes mellitus, type 2) Status: Chronic (4) HLD (hyperlipidemia) Code(s): E78.5 - HYPERLIPIDEMIA, UNSPECIFIED Status: Chronic (5) HTN (hypertension) Code(s): I10 - ESSENTIAL (PRIMARY) HYPERTENSION Status: Chronic - Plan Plan: Hypertensive Urgency -Initial pressures around 220/100. Pt was titrated of cardene drip 09/16 -BPs remain elevated in the 150-180s systolic -Current regimen: Carvedilol 3.125 mg BID, Lisinopril 40 mg BID, HCTZ 25 mg daily, Procardia XL 90 mg daily, Hydralazine 10 mg QID. -Renal US showed abnormalities in arcuate arteries bilaterally -Cardiology Consulted- Dr. Estrella. Believes chest pain from elevated HTN. -Will want to continue with aggressive BP control. -Dr. August consulted on 09/21, increased antihypertensive regimen, increased lisinopril, procardia and added hydralazine -serum aldosterone level pending Atypical chest pain, ACS rule out vs symptomatic bradycardia -Trend troponins, negative x3. Elevation likely due to demand and overwork from elevated BP -Cardiology consulted- Plan as above. Chest pain likely related to high elevated BP. -ECHO shows EF 50-55% and signs of diastolic dysfunction. No sign of fluid overload this time. 2nd degree AV heart block, mobitz type 1 -Asymptomatic -Cardiology Consulted- Does not think needs pacer at this time. No sx's related CAD -Continue home meds HTN -Carvedilol and Lisinopril increased. -BP have remained high, will explore causes for secondary hypertension at this time. DM2 -Continue home meds -ACHS glu checks -SSI HLD -Continue home meds CKD3 -Cr has worsened -Renal US showed abnormalities in arc[place] arteries b/l -Consulted Dr. August, appreciate recs FABY There is concern for FABY, ordered CPAP at night. Pt will need outpatient work up. Addendum - Attending - Attending Attestation Date/Time: 09/21/18 1410 I personally evaluated the patient and discussed the management with Dr. Engle I agree with the History, Examination, Assessment and Plan documented above with any addition or exceptions noted below. BP better controlled patient endorsing feeling better should be able for d/c soon with further outpatient monitoring of BP and evaluation for FABY.
[2018-09-21] MEDS ORDERED: NIFEdipine XL 90 MG TAB PO SCH (09:00)
[2018-09-21] MEDS: Aspirin Chewable 81 MG TAB PO SCH (09:01)
[2018-09-21] MEDS: Hydrochlorothiazide 25 MG TAB PO SCH (09:01)
[2018-09-21] MEDS: Famotidine 20 MG TAB PO SCH (09:01)
[2018-09-21] MEDS: Lisinopril 20 MG TAB PO SCH (09:01)
[2018-09-21] MEDS: Carvedilol 3.125 MG TAB PO SCH ×2 (09:01→17:18)
[2018-09-21] MEDS: Insulin Glargine 25 UNITS in Pre-Filled Syringe 1 EACH SC SCH (09:01)
[2018-09-21] MEDS: hydrALAZINE 25 MG TAB PO SCH ×3 (09:02→17:17)
[2018-09-21] MEDS: Insulin Regular 300 UNITS/3 ML VIAL SC PRN ×3 (09:04→17:19)
[2018-09-21 11:46] LABS: Anion Gap 13 mmol/L (10-20); BUN (Urea Nitrogen) 32 mg/dL (8.4-25.7); Calc. Creatinine Clearance 49 mL/min (70-130); Calcium 9.1 mg/dL (7.8-10.44); Carbon Dioxide 32 mmol/L (23-31); Chloride 96 mmol/L (98-107); Estimated GFR-MDRD 50; Glucose 173 mg/dL (83-110); Potassium 4.6 mmol/L (3.5-5.1); Sodium 136 mmol/L (136-145)
--- NOTE | 2018-09-21 12:48 | PRG ---
DATE OF SERVICE: 09/21/2018 SUBJECTIVE: This is a 73-year-old gentleman being seen for hypertension. The patient denies any nausea, vomiting, or chest pain. OBJECTIVE: CONSTITUTIONAL: The patient is awake, alert, in no acute distress. VITAL SIGNS: Afebrile, pulse 50, breathing 16, blood pressure 131/69. GENERAL APPEARANCE AND MENTAL STATUS: Fair. HEAD/NECK: Normocephalic. Atraumatic. EYES: EOMI. No deformity. EARS: Clear. No ulcers. NOSE: Intact. No lesions. MOUTH: Clear. No discharge. THROAT: Clear. No exudate. LUNGS: Clear. No crackles. CARDIAC: S1, S2. No rub. ABDOMEN: Benign. Bowel sounds positive. GENITALIA/RECTUM: Mullins absent. BACK/EXTREMITIES: Edema 0+. NEUROLOGICAL: Alert and motor intact. SKIN: LYMPHATICS: LABORATORY DATA: Labs reviewed. Hemoglobin 12.9. Creatinine 1.6. ASSESSMENT AND PLAN: 1. Chronic kidney disease, stage 3, stable. 2. Hypertension, stable. 3. Anemia, stable. 4. Medications based on GFR, appropriate. The patient can follow up to see me in a few weeks. Job ID: [id number]
[2018-09-21 15:22] VITALS: BP 158/76; TEMP 97.7
[2018-09-23 07:22] LABS: Renin Activity 0.211 ng/mL/hr (0.167-5.380)
--- NOTE | 2018-09-23 11:34 | DIS ---
DATE OF ADMISSION: 09/16/2018 DATE OF DISCHARGE: 09/21/2018 RESIDENT: Dion Engle MD. CONSULTS: 1. Cardiology, Dr. Estrella on 09/16/2018. 2. Nephrology, Dr. August on 09/20/2018. 3. Pulmonology, Dr. Hutchinson on 09/16/2018. PROCEDURES: 1. CT of the chest and abdomen. Impression, no evidence of thoracic or abdominal aortic aneurysm or dissection. No acute process identified. 2. Echocardiogram on 09/16/2018. Summary, left ventricular ejection fraction estimated at 50% to 55%, hypokinetic wall motion of the inferior wall noted in the left ventricle. The E/A flow reversal noted suggestive of diastolic dysfunction. 3. Ultrasound of the abdomen and pelvis and renal ultrasound. Impression, increased resistive index in the left and right arcuate arteries. PRIMARY DIAGNOSES: Hypertensive emergency. SECONDARY DIAGNOSES: 1. Chronic kidney disease stage 3. 2. Diabetes type 2. 3. Hypertension. 4. Hyperlipidemia. DISCHARGE MEDICATIONS: Resume home medications including, 1. Aspirin 81 mg p.o. daily. 2. ProAir HFA two puffs INH q.6 hours p.r.n. 3. Levemir 25 units subcu q.12 hours. 4. Lispro 2 to 10 units subcu as directed. New home medications include, 1. Coreg 6.25 mg p.o. b.i.d. with meals. 2. Hydralazine 10 mg p.o. q.i.d. 3. Hydrochlorothiazide 25 mg p.o. daily. 4. Lisinopril 40 mg p.o. b.i.d. 5. Nifedipine 90 mg p.o. daily. 6. Metformin 1000 mg p.o. b.i.d. with meals. Discontinued medications: 1. Amlodipine 10 mg p.o. daily. 2. Metoprolol succinate 50 mg p.o. h.s. HISTORY OF PRESENT ILLNESS/HOSPITAL COURSE: Ubaldo Abernathy is a 73-year-old male with past medical history of coronary artery disease, status post stent in 2012, hypertension, hyperlipidemia, chronic kidney disease stage 3, and type 2 diabetes, who presented to an outside ER with complaint of chest pain. He was sent to [facility]. He stated that chest pain had been present for last week and worsened over the last three days. It occurred at rest and with exertion, described it as a dull ache, 8/10 at its worst with radiation to the left arm. He stated the pain was not like any pain he has had in the past, not like he had whenever he had a stent placed. He denied any nausea, shortness of breath, dizziness, or diaphoresis. In the ED, he received 500 mL normal saline bolus and nitroglycerin paste. Vital signs on admission were blood pressure 220/100, heart rate 68, respiratory rate 16, temperature 97.7, pulse ox 98% on room air. EKG on admission showed Mobitz type I block. Labs on admission, white blood cell count 7.2, hemoglobin 11.8, platelets 193, band count low, lymphocyte count normal at 45%. Creatinine 1.54 with a baseline of 1.3 to 1.4. BMP, unremarkable otherwise. Troponin was 0.09. The patient was admitted for hypertensive emergency to the ICU. Initial pressures were around 220/100. He was started on Cardene drip, and it was titrated for blood pressures below 180 systolic. Aortic dissection was ruled out in the ED. Cardiac troponins were trended up to 0.92. Dr. Estrella was consulted, who stated that the symptoms are not consistent with angina, stated that symptoms were likely related to hypertensive urgency. By that time, blood pressure had improved, recommended continuing aspirin [address] Hutchinson was also consulted for CCU management. They saw the patient and quickly cleared him for transfer to telemetry after blood pressures had improved, and he had been transitioned to p.o. regimen. Cardiology signed off on the patient on 09/17/2018 as they felt the chest pain is likely to be atypical and related to blood pressure. They recommended aggressive blood pressure management and discharge after blood pressures were stable. They also recommend that he follow up with Dr. Estrella in 2 to 3 weeks. The patient's blood pressures were relatively uncontrolled for the first few days of his admission while trying to titrate him up on p.o. medications. His systolic pressures ranged anywhere from 150s to 180s systolic. There were concerns of secondary causes of hypertension. Renal ultrasound was performed that showed increased resistive index in the arcuate arteries bilaterally. Dr. August, Nephrology was consulted for chronic kidney disease and resistant hypertension. Dr. Shukla increased the patient's antihypertensive regimen by increasing Procardia XL and increasing lisinopril to b.i.d. dosing. He also added hydralazine 10 mg q.i.d. and recommended that the patient follow up with him two weeks after discharge. We were able to achieve better blood pressure control with systolic pressures ranging from 131 to 159. The patient's symptoms had improved significantly throughout his hospital stay, and he no longer complained of chest pain. He stated that the chest pain had been improve since the day of admission. The patient was cleared for discharge on 09/21/2018 with instructions to follow up with Nephrology and Cardiology in 2 to 3 weeks and follow up with his primary care provider. DISCHARGE CONDITION: Stable. The patient should do well if he continues his current antihypertensive regimen that was titrated in the hospital and keeps his followup appointment. DISCHARGE INSTRUCTIONS: 1. Location: Home. 2. Diet: Heart-healthy and diabetic diet. 3. Activity: As tolerated. 4. Follow up with Dr. Estrella and Dr. August in 2 to 3 weeks as well as primary care provider. Job ID: [id number] MTDD
== END 2018-09-21 19:13 | disposition home or self-care (01) | DRG 281 ==
LOC: ERS 22:00 → CCU 09-16 01:45 → 2NO 09-16 17:25
PROVIDERS: ADMIT Family Medicine; ATTEND Family Medicine
DX: I16.0 Hypertensive urgency (principal); I21.4 Non-ST elevation (NSTEMI) myocardial infarction; I16.1 Hypertensive emergency; I12.9 Hypertensive chronic kidney disease with stage 1 through stage 4 chronic kidney disease, or unspecified chronic kidney disease; E11.22 Type 2 diabetes mellitus with diabetic chronic kidney disease; N18.3 Chronic kidney disease, stage 3 (moderate); I25.10 Atherosclerotic heart disease of native coronary artery without angina pectoris; E78.5 Hyperlipidemia, unspecified; I44.1 Atrioventricular block, second degree; I25.2 Old myocardial infarction; G47.33 Obstructive sleep apnea (adult) (pediatric); D63.1 Anemia in chronic kidney disease
CPT/HCPCS: 36415; 36416; 71275; 76700; 76770; 80048; 82088; 82550; 82553; 84244; 84484; 85025; 93005; 93010; 93306; 94760; 96361; 96374; J0360; J1815; J1825; J2270; J2405; J7050; Q0162; Q9966; S0028

== ENCOUNTER 2019-03-11 12:18 | Outpatient (CLI) | payer MEDICARE, MEDICAID ==
--- NOTE | 2019-03-11 12:43 | RAD ---
EXAM: Chest 2 views: HISTORY: Chest pain COMPARISON: 01/16/2019 FINDINGS: Stable exam. Heart size:Within normal limits. Lungs:Clear of acute process. Atherosclerotic changes of the aorta. No confluent pneumonia, overt edema, pleural effusion, pneumothorax, or other significant acute proce ss. IMPRESSION: Atherosclerosis of the aorta. No acute intrathoracic disease.
== END 2019-03-11 12:19 | disposition home or self-care (01) ==
LOC: RAD 12:18
PROVIDERS: ATTEND Internal Medicine
DX: R06.00 Dyspnea, unspecified (principal); I70.0 Atherosclerosis of aorta
CPT/HCPCS: 71046

== ENCOUNTER 2020-03-09 16:07 | Inpatient (IN) | payer MEDICARE, MEDICAID ==
[2020-03-09 16:43] LABS: #Eosinphils 0.1 thou/uL (0.0-0.7); #Lymphocytes 1.9 thou/uL (1.20-3.40); #Monocytes 0.5 thou/uL (0.11-0.59); #Neutrophils 3.6 thou/uL (1.40-6.50); %Basophils 0.4 % (0.0-1.0); %Eosinophils 1.5 % (0.0-10.0); %Lymphocytes 30.9 % (21.0-51.0); %Monocytes 7.8 % (0.0-10.0); %Neutrophils 59.4 % (42.0-75.0); Hemoglobin 10.5 g/dL (14.0-18.0); Mean Corpuscular Hemoglobin 28.5 pg (27.0-31.0); Mean Corpuscular Volume 86.4 fL (78.0-98.0); Mean Platelet Volume 9.7 fL (7.4-10.4); Platelet Count 135 thou/uL (130-400); RBC Distribution Width 12.2 % (11.5-14.5)
[2020-03-09 17:06] LABS: Acetaminophen Less than 6.0 mcg/mL (10.0-30.0); Alcohol Less than 10 mg/dL (Less than 10); Salicylate Less than 8.0 mg/dL (15.0-30.0)
[2020-03-09 17:07] LABS: ALT (SGPT) 22 U/L (8-55); AST (SGOT) 39 U/L (5-34); Alkaline Phosphatase 68 U/L (40-110); Anion Gap 12 mmol/L (10-20); BUN (Urea Nitrogen) 29 mg/dL (8.4-25.7); Bilirubin, Total 0.4 mg/dL (0.2-1.2); Calc. Creatinine Clearance 0 mL/min (70-130); Calcium 7.7 mg/dL (7.8-10.44); Carbon Dioxide 23 mmol/L (23-31); Chloride 110 mmol/L (98-107); Estimated GFR-MDRD 44; Globulin 2.8 g/dL (2.4-3.5); Glucose 311 mg/dL (83-110); Lipase 30 U/L (8-78); Potassium 4.2 mmol/L (3.5-5.1); Protein, Total 5.8 g/dL (5.8-8.1); Sodium 141 mmol/L (136-145)
--- NOTE | 2020-03-09 17:17 | RAD ---
Portable frontal chest radiograph: 03/09/2020 COMPARISON: 06/20/2019 HISTORY: Chest pain FINDINGS: Lungs are clear. Heart and mediastinal contours appear within normal limits. IMPRESSION: No acute findings.
[2020-03-09 17:29] LABS: CKMB 4.5 ng/mL (0-6.6)
[2020-03-09 20:32] LABS: Troponin I 0.281 ng/mL (< 0.028)
[2020-03-09] MEDS ORDERED: Acetaminophen 650 MG Suppository PR PRN (21:29)
--- NOTE | 2020-03-09 21:50 | PDOC.HHP ---
Hospitalist HPI - History of Present Illness History of Present Illness: ADMISSION DATE: 03/09/2020 TIME OF ASSESSMENT: 2100 PRIMARY CARE PHYSICIAN: LANEY Law CHIEF COMPLAINT: Chest pain HPI: Patient presents to the emergency department due to persistent chest pain that has been occurring with exertion over the last 2 to 3 days. Patient reports having associated shortness of breath with exertion as well. Breathlessness has been ongoing for the last month and states that 1 month ago he stopped exercising like he used to. He was previously able to take walk around his block without feeling winded. Today the pain became severe when he was doing some work around his home. He tried to lay down and states it did not improve. He did not try taking anything for the pain and states that the discomfort was located across the entire chest and eventually moved to the left side of his chest. It was a 10 out of 10 in severity which she describes as a constant pressure. Also recalls having pain radiating down his right arm. He decided to walk to the fire station and states he felt like he barely needed due to generalized weakness. Does not recall any diaphoresis and denies any nausea or vomiting. No lightheadedness. He was given nitroglycerin and aspirin then transferred here to the emergency department. He has a known history of coronary artery disease and had a stent placed in the past. His tour actor is Dr. Estrella. His last echo was done on September 16, 2018 showed an EF of 50 to 35%. Hypokinetic motion of the inferior wall noted in the left ventricle. E/A flow reversal noted. Suggestive of diastolic dysfunction. Mild MR and mild TR present. ROS: Patient complains of having loose stools for the last week and previously suffered from constipation. Denies any blood in the stool and has been tolerating p.o. intake without any nausea or vomiting. States he always has some abdominal bloating which he associated with the chronic constipation. Unable to pinpoint exactly how many watery stools he has had a day but states that anytime he has to urinate he sits on the commode because he will most likely have a runny bowel movement. Has not been on any antibiotics or laxatives. Denies any fevers chills or sweats. All other review systems apart from what is mentioned above in HPI are negative ED COURSE: Prior to arriving to the emergency department the patient was given 1 L of normal saline 324 mg of aspirin and 3 sublingual. He then had 1 inch of Nitropaste applied to his chest. EKG done in the emergency department showed a sinus rhythm with a heart of 64. No ST changes or T wave abnormalities. Chest x-ray unremarkable. No acute findings. Laboratory studies showed a white count of 6, hemoglobin 10.5, hematocrit 32, platelets 135. Sodium 141, potassium 4.2, BUN 29, creatinine 1.85, GFR 44. Glucose 311, calcium 7.7, AST 39, ALT 22, total bilirubin 0.4. Alk phos 68. Li pase normal. Initial troponin indeterminate at 0.202. Second troponin of 0.281 No further medications given in the emergency department. PAST MEDICAL HISTORY: 1. CAD 2. Hypertension 3. Hyperlipidemia 4. Chronic constipation 5. Umbilical hernia 6. Chronic bradycardia 7. Diabetes mellitus, type II 8. History of previous PA 9. History of TIA 10. Depression PAST SURGICAL HISTORY: 1. Coronary artery stent x1 2. Left hand surgery secondary to fracture 3. Left knee surgery 4. Sinus surgery, nasal polyps removed 5. Lipoma excised from his neck 6. Pelvic bone surgery SOCIAL HISTORY: The patient lives by himself and states he is fully independent at home though his activity level has declined due to shortness of breath on exertion for the last month. He is able to mobilize independently at home but sometimes uses a cane for long distances. Denies any tobacco use or drug use. Reports occasional alcohol intake. FAMILY HISTORY: ALLERGIES: Tramadol CURRENT MEDICATIONS: 1. Aspirin 2. Levemir 3. Gabapentin 4. Carvedilol 5. Lisinopril 6. Duloxetine 7. Eliquis 8. Lasix - Exam General Appearance: NAD General - other findings: VS: Temp 97.8, BP 193/95, HR 53, RR 15, O2 sat 100% on room air. Eye: PERRL, anicteric sclera ENT: normocephalic atraumatic, no oropharyngeal lesions Neck: supple, no lymphadenopathy Heart: RRR, normal peripheral pulses Respiratory: CTAB, no wheezes, no rales, normal chest expansion Respiratory - other findings: no chest wall tenderness Gastrointestinal: soft, non-tender, non-distended, normal bowel sounds, no guarding, no rigidity Gastrointestinal - other findings: Increased abdominal girth, per pt stable, soft reducible umbilical hernia Extremities: no edema Skin: normal turgor, no lesions, no rashes Neurological: cranial nerve grossly intact, normal sensation to touch Musculoskeletal: normal tone, normal strength, no muscle wasting Psychiatric: normal affect, normal behavior, A&O x 3 Hospitalist Results - Labs Result Diagrams: 03/10/20 01:44 03/10/20 01:44 Lab results: WBC 6.0 thou/uL (4.8-10.8) 03/09/20 16:32 Hgb 10.5 g/dL (14.0-18.0) L 03/09/20 16:32 Hct 32.0 % (42.0-52.0) L 03/09/20 16:32 MCV 86.4 fL (78.0-98.0) 03/09/20 16:32 Plt Count 135 thou/uL (130-400) 03/09/20 16:32 Neutrophils % 59.4 % (42.0-75.0) 03/09/20 16:32 Sodium 141 mmol/L (136-145) 03/09/20 16:32 Potassium 4.2 mmol/L (3.5-5.1) 03/09/20 16:32 Chloride 110 mmol/L (98-107) H 03/09/20 16:32 Carbon Dioxide 23 mmol/L (23-31) 03/09/20 16:32 BUN 29 mg/dL (8.4-25.7) H 03/09/20 16:32 Creatinine 1.85 mg/dL (0.7-1.3) H 03/09/20 16:32 Glucose 311 mg/dL (83-110) H 03/09/20 16:32 Calcium 7.7 mg/dL (7.8-10.44) L 03/09/20 16:32 Total Bilirubin 0.4 mg/dL (0.2-1.2) 03/09/20 16:32 AST 39 U/L (5-34) H 03/09/20 16:32 ALT 22 U/L (8-55) 03/09/20 16:32 Alkaline Phosphatase 68 U/L (40-110) 03/09/20 16:32 CK-MB (CK-2) 4.5 ng/mL (0-6.6) 03/09/20 16:32 Troponin I 0.281 ng/mL (< 0.028) H 03/09/20 19:54 B-Natriuretic Peptide 323.8 pg/mL (0-100) H 03/09/20 16:32 Serum Total Protein 5.8 g/dL (5.8-8.1) 03/09/20 16:32 Albumin 3.0 g/dL (3.4-4.8) L 03/09/20 16:32 Lipase 30 U/L (8-78) 03/09/20 16:32 - Radiology Interpretation Chest x-ray Status: report reviewed by ne Hospitalist H&P A/P - Problem (1) Chest pain Code(s): R07.9 - CHEST PAIN, UNSPECIFIED Status: Active Assessment and Plan: Cardiac monitoring Continue to trend troponins Aspirin 325 mg daily Check TSH, Mg+, lipid panel with AM labs Stress test for AM NPO after midnight (2) Shortness of breath on exertion Code(s): R06.02 - SHORTNESS OF BREATH Status: Acute Assessment and Plan: Diastolic HF noted on previous Echo Continue Lasix Repeat Echo ordered to assess for further worsening (3) Diarrhea Code(s): R19.7 - DIARRHEA, UNSPECIFIED Status: Acute Assessment and Plan: Gentle hydration Check Mg+ Abdo Xray, possible overflow from stool retention Stool studies ordered (4) CKD (chronic kidney disease) stage 3, GFR 30-59 ml/min Code(s): N18.3 - CHRONIC KIDNEY DISEASE, STAGE 3 (MODERATE) * DO NOT USE * Status: Chronic Assessment and Plan: Monitor renal function Avoid nephrotoxic agents (5) DM2 (diabetes mellitus, type 2) Status: Chronic Assessment and Plan: Monitor glucose, accuchecks ACHS ISS initiated (6) HTN (hypertension) Code(s): I10 - ESSENTIAL (PRIMARY) HYPERTENSION Status: Chronic Assessment and Plan: Monitor BP resume home meds once verified (7) HLD (hyperlipidemia) Code(s): E78.5 - HYPERLIPIDEMIA, UNSPECIFIED Status: Chronic Assessment and Plan: Lipid panel with AM labs Resume statin - Plan Plan: GI Prophylaxis with Famotidine DVT Prophylaxis with mechanical SCDs. CODE STATUS FULL Case discussed with attending who agrees with plan as above. ADDENDUM: Notified by RN, patient with 10/10 chest pain. BP 200s systolic. 3rd trop 0.396. 4th trop ordered. EKG obtained and does not show dynamic changes. BP may be elevated secondary to pain, or heart being strained secondary to uncontrolled BP. Order placed for Heparin drip. Cardiology consult in place. Morphine ordered. Hydralazine 10 mg IV x 1 ordered as well. Stress test for AM discontinued. Keep NPO.
[2020-03-09] MEDS ORDERED: Nitroglycerin 2% Ointment 1 INCH/1 GM Packet TOP SCH (22:00)
[2020-03-09] MEDS ORDERED: Dextrose 50% Abboject 50 ML SYRINGE SLOW IVP PRN (22:32)
[2020-03-09] MEDS ORDERED: HumaLOG 300 UNITS/3 ML VIAL SC PRN (22:32)
[2020-03-09] MEDS ORDERED: Dextrose 5% in Water 1,000 ML IV PRN (22:32)
[2020-03-09] MEDS ORDERED: Sodium Chloride 0.9% 1,000 ML IV SCH (23:00)
[2020-03-09] MEDS: Acetaminophen 325 MG TAB PO PRN (23:15)
[2020-03-09 23:19] LABS: CKMB 5.8 ng/mL (0-6.6)
[2020-03-10 00:30] VITALS: BMI 34.2
[2020-03-10 01:55] LABS: #Basophils 0.1 thou/uL (0.0-0.2); #Eosinphils 0.1 thou/uL (0.0-0.7); #Lymphocytes 2.4 thou/uL (1.20-3.40); #Monocytes 0.5 thou/uL (0.11-0.59); #Neutrophils 3.1 thou/uL (1.40-6.50); %Eosinophils 1.8 % (0.0-10.0); %Lymphocytes 38.6 % (21.0-51.0); %Monocytes 8.4 % (0.0-10.0); %Neutrophils 50.2 % (42.0-75.0); Hemoglobin 10.4 g/dL (14.0-18.0); Mean Corpuscular HGB CONC 31.7 g/dL (32.0-36.0); Mean Corpuscular Hemoglobin 27.5 pg (27.0-31.0); Mean Corpuscular Volume 86.9 fL (78.0-98.0); Mean Platelet Volume 9.4 fL (7.4-10.4); Platelet Count 138 thou/uL (130-400); RBC Distribution Width 12.4 % (11.5-14.5); Red Blood Cell (RBC) Count 3.79 mill/uL (4.70-6.10); White Blood Cell (WBC) Count 6.1 thou/uL (4.8-10.8)
[2020-03-10] MEDS ORDERED: Heparin 25,000 units/D5W 500 ML IVPB SCH (02:15)
[2020-03-10] MEDS ORDERED: Enoxaparin Sodium 80 MG/0.8 ML SYRINGE SC SCH ×2 (02:15→14:00)
[2020-03-10 02:29] LABS: ALT (SGPT) 19 U/L (8-55); AST (SGOT) 25 U/L (5-34); Albumin 3.1 g/dL (3.4-4.8); Alkaline Phosphatase 70 U/L (40-110); Anion Gap 12 mmol/L (10-20); BUN (Urea Nitrogen) 27 mg/dL (8.4-25.7); Bilirubin, Total 0.4 mg/dL (0.2-1.2); Calc. Creatinine Clearance 47 mL/min (70-130); Calcium 7.8 mg/dL (7.8-10.44); Carbon Dioxide 24 mmol/L (23-31); Cardiac Risk 3.4 (Less than 4.5); Chloride 110 mmol/L (98-107); Cholesterol 137 mg/dl (< 200 Desired); Estimated GFR-MDRD 47; Globulin 2.9 g/dL (2.4-3.5); Glucose 164 mg/dL (83-110); HDL Cholesterol 40 mg/dL (>60 Neg Risk); LDL Cholesterol, Calculated 85 mg/dL; Lipase 47 U/L (8-78); Potassium 4.1 mmol/L (3.5-5.1); Sodium 142 mmol/L (136-145); Triglycerides 62 mg/dL (Less than 150)
[2020-03-10] MEDS ORDERED: Morphine 2 MG/ML VIAL SLOW IVP SCH ×2 (02:30→07:15)
[2020-03-10 02:40] LABS: CKMB 5.8 ng/mL (0-6.6)
[2020-03-10] MEDS: Heparin 10,000 UNITS/ 10 ML VIAL SLOW IVP SCH ×2 (02:45→07:59)
[2020-03-10] MEDS ORDERED: Nitroglycerin 2% Ointment 1 INCH/1 GM Packet TOP SCH (02:45)
[2020-03-10] MEDS ORDERED: hydrALAZINE 20 MG/ML VIAL SLOW IVP SCH ×2 (02:45→05:15)
[2020-03-10 04:38] LABS: Hemoglobin 11.3 g/dL (14.0-18.0); Platelet Count 144 thou/uL (130-400)
[2020-03-10 05:00] LABS: PTT 136.3 sec (22.9-36.1)
[2020-03-10 05:07] LABS: Critical Call Chem Troponin I RESULT DECREASING
[2020-03-10] MEDS: Acetaminophen 325 MG TAB PO PRN (07:58)
[2020-03-10] MEDS: Nitroglycerin 0.4 MG TAB (25 Tab Bottle) SL PRN ×2 (07:58→09:37)
[2020-03-10] MEDS: HumaLOG 300 UNITS/3 ML VIAL SC PRN ×2 (07:59→17:57)
[2020-03-10 08:39] LABS: SARS-CoV-2 MS2 Positive; SARS-CoV-2 N Gene Negative; SARS-CoV-2 S Gene Negative; SARS-CoV-2 by NAA Not Detected (NotDetected); SARS-CoV-2 orf1ab Negative
--- NOTE | 2020-03-10 08:44 | RAD ---
Abdomen one view HISTORY: Abdomen pain. FINDINGS: Gas and stool apparent within the colon. Small bowel gas pattern is nonspecific. Postoperative changes of the pubic symphysis apparent. Degenerative changes of the lumbar spine. Phle boliths project over the pelvis. IMPRESSION : No significant abnormalities are demonstrated.
[2020-03-10] MEDS ORDERED: FLU VACC QS2020-21(65YR UP)/PF 240 MCG/0.7 ML SYRINGE IM ONE (09:00)
[2020-03-10] MEDS: Aspirin 325 mg Enteric Coated Tablet PO SCH (09:36)
[2020-03-10] MEDS: Famotidine 20 MG TAB PO SCH (09:36)
[2020-03-10] MEDS ORDERED: Morphine 2 MG/ML VIAL SLOW IVP PRN (10:17)
[2020-03-10] MEDS ORDERED: Ondansetron PF 4 MG/2 ML Vial IVP PRN ×2 (10:19→10:22)
[2020-03-10] MEDS: Morphine 2 MG/ML VIAL SLOW IVP PRN ×2 (11:02→17:16)
[2020-03-10] MEDS: Nitroglycerin 2% Ointment 1 INCH/1 GM Packet TOP SCH ×2 (11:03→21:49)
[2020-03-10 13:50] LABS: PTT 130.7 sec (22.9-36.1)
--- NOTE | 2020-03-10 17:00 | PDOC.HOSPP ---
- Subjective Encounter Date: 03/10/20 Encounter Time: 16:59 Subjective: Mr. Abernathy is a 74-year-old patient whose medical history includes coronary disease with prior PCI who presented to the hospital with chest pain. He described this as a midsternal discomfort that feels like when he had the stents placed several years ago. He is on nitro and morphine. IV heparin is also ongoing. Cardiology was asked to see him and we are pending consult. We will continue medical treatment for now. I will defer to cardiology about further intervention. - Objective Vital Signs & Weight: Vital Signs (12 hours) Temp Pulse Resp BP Pulse Ox 03/10/20 11:00 98.2 F 50 L 17 153/70 H 98 03/10/20 09:45 99 03/10/20 07:20 97.5 F L 65 18 144/65 H 99 03/10/20 07:15 65 144/65 H 03/10/20 06:19 61 Weight Weight 193 lb 4 oz I&O: 03/09/20 03/10/20 03/11/20 06:59 06:59 06:59 Intake Total 500 Output Total 450 Balance 50 Result Diagrams: 03/10/20 04:10 03/10/20 01:44 Additional Labs: Accuchecks 03/10/20 03/10/20 10:15 06:46 POC Glucose 227 H 179 H Radiology Reviewed by me: Yes EKG Reviewed by me: Yes Hospitalist ROS - Review of Systems Constitutional: reports: weakness, malaise Cardiovascular: reports: chest pain, palpitations, orthopnea, paroxysmal noc. dyspnea, edema Gastrointestinal: reports: nausea - Medication Medications: Active Medications Generic Name Dose Route Start Last Admin Trade Name Javonq PRN Reason Stop Dose Admin Acetaminophen 650 mg 03/09/20 21:29 03/10/20 07:58 Acetaminophen 325 Mg Tab PO 650 mg Q4H PRN Administration Headache/Fever/Mild Pain (1-3) Aspirin 325 mg 03/10/20 09:00 03/10/20 09:36 Aspirin 325 Mg Enteric Coated Tablet PO 325 mg DAILY JAGUAR Administration Famotidine 20 mg 03/10/20 09:00 03/10/20 09:36 Famotidine 20 Mg Tab PO 20 mg 0900 JAGUAR Administration Heparin Sodium (Porcine) 0 units 03/10/20 02:15 03/10/20 07:59 Heparin 10,000 Units/ 10 Ml Vial SLOW IVP 4,000 unit ASDIR JAGUAR Administration Protocol Sodium Chloride 1,000 mls @ 45 mls/hr 03/09/20 23:00 03/09/20 23:19 Normal Saline 0.9% IV 1,000 mls .[id number] JAGUAR Administration Heparin Sodium/Dextrose 500 mls @ 0 mls/hr 03/10/20 02:15 03/10/20 03:03 Heparin 25,000 Units/D5w IVPB 500 mls INF JAGUAR Administration Protocol Per Protocol Insulin Human Lispro 0 units 03/09/20 22:32 03/10/20 07:59 Humalog 300 Units/3 Ml Vial SC 2 unit .MILD SLIDING SCALE PRN Administration Mild Correctional Scale Morphine Sulfate 2 mg 03/10/20 10:20 03/10/20 11:02 Morphine 2 Mg/Ml Vial SLOW IVP 2 mg Q6H PRN Administration Severe Pain (7-10) Nitroglycerin 0.4 mg 03/10/20 02:07 03/10/20 09:37 Nitroglycerin 0.4 Mg Tab (25 Tab Bottle) SL 0.4 mg Q5MIN PRN Administration Chest Pain Nitroglycerin 1 inch 03/10/20 12:00 03/10/20 11:03 Nitroglycerin 2% Ointment 1 Inch/1 Gm Packet TOP 1 inch 0400,1200,2000 [facility] Administration Ondansetron HCl 4 mg 03/10/20 10:19 03/10/20 11:03 Ondansetron Pf 4 Mg/2 Ml Vial IVP 4 mg Q6H PRN Administration Nausea/Vomiting - Exam General Appearance: NAD, awake alert Eye: PERRL, anicteric sclera ENT: normocephalic atraumatic, no oropharyngeal lesions, moist mucosa Neck: supple, symmetric, no JVD, no thyromegaly, no lymphadenopathy Heart: RRR, no murmur, no gallops, no rubs, normal peripheral pulses Respiratory: CTAB, no wheezes, no rales Gastrointestinal: soft, non-tender, non-distended, normal bowel sounds Extremities: no cyanosis, 1+ LE edema Neurological: cranial nerve grossly intact, normal sensation to touch Musculoskeletal: normal tone, normal strength, no muscle wasting Psychiatric: normal affect, normal behavior, A&O x 3, oriented to person Hosp A/P (1) NSTEMI (non-ST elevated myocardial infarction) Code(s): I21.4 - NON-ST ELEVATION (NSTEMI) MYOCARDIAL INFARCTION Status: Acute Plan: Patient on guideline directed medical therapy pending property officer consultation. Continue intravenous heparin. (2) Hypertensive urgency Code(s): I16.0 - HYPERTENSIVE URGENCY Status: Acute Plan: His blood pressure seems somewhat controlled at the moment. (3) DM2 (diabetes mellitus, type 2) Status: Chronic Qualifiers: Diabetes mellitus terminal manager insulin use: without terminal manager use Diabetes mellitus complication status: without complication Qualified Code(s): E11.9 - Type 2 diabetes mellitus without complications (4) HLD (hyperlipidemia) Code(s): E78.5 - HYPERLIPIDEMIA, UNSPECIFIED Status: Chronic Qualifiers: Hyperlipidemia type: mixed hyperlipidemia Qualified Code(s): E78.2 - Mixed hyperlipidemia Plan: Continue statins. - Plan old records reviewed/req, PT/OT, out of bed/ambulate, DVT proph w/heparin
--- NOTE | 2020-03-10 17:14 | EKG ---
Test Reason : Blood Pressure : / mmHG Vent. Rate : 064 BPM Atrial Rate : 064 BPM P-R Int : 258 ms QRS Dur : 104 ms QT Int : 484 ms P-R-T Axes : 046 -08 030 degrees QTc Int : 499 ms Sinus rhythm with 1st degree A-V block Voltage criteria for left ventricular hypertrophy Nonspecific T wave abnormality Prolonged QT Abnormal ECG Confirmed by NAYELY COOPER DO ([id number]), newspaper or periodical editor SUZAN HERRERA ([id number]) on 03/10/2020 5:13:39 PM Referred By: Confirmed By:NAYELY COOPER DO
[2020-03-10] MEDS ORDERED: Communication Order-Pharmacy FS SCH (17:30)
[2020-03-10] MEDS ORDERED: Enoxaparin Sodium 100 MG/ML SYRINGE SC SCH (17:45)
[2020-03-10] MEDS: Sodium Chloride 0.9% 1,000 ML IV SCH (18:01)
--- NOTE | 2020-03-10 20:24 | CON ---
DATE OF CONSULTATION: 03/10/2020 REASON FOR CONSULTATION: Continued chest pain, non-ST elevation myocardial infarction. HISTORY OF PRESENT ILLNESS: Mr. Abernathy is 74 years of age. Primary chief technician is Dr. J Luis Estrella. He had underwent stent implantation in the past in the obtuse marginal distribution. He underwent cardiac catheterization in [address] Estrella and found to have no flow-limiting disease in the LAD, circumflex, or right coronary. There was a borderline lesion angiographically in the right coronary artery, but flow wire revealed this was not hemodynamically significant. This has actually done well up until recently. He was in the hospital here a couple of years ago with chest pain, but it was thought to be noncardiac. However, over the last three days, he has been having increasing amounts of chest pain. The pain is in the left side of his chest. He said that it started about Thursday, seemed to get better and worse and starting yesterday, it got worse; this morning, it was very severe. He said the pain had resolved, but then when he had his blood drawn recently, the pain came back, but he said it is not as bad now as it was this morning. The patient does have increased cardiac enzymes. ALLERGIES: THE PATIENT IS ALLERGIC TO TRAMADOL. CURRENT MEDICATIONS: 1. He is on aspirin. 2. He is on IV heparin, but the PTT levels are variable. PHYSICAL EXAMINATION: GENERAL: This is a pleasant gentleman, in no distress. VITAL SIGNS: Blood pressure 153/70, pulse in the 50s. HEENT: Eyes, sclerae nonicteric. Mouth, mucous membranes moist. NECK: Supple. No lymphadenopathy. LUNGS: Clear. CARDIAC: Normal S1, normal S2. No murmur, rub, or gallop. ABDOMEN: Soft and nontender. EXTREMITIES: Warm, dry. No clubbing. No cyanosis or edema. LABORATORY DATA: The PTTs have been extremely variable, it is 136, 39.4, 34.9, and 130. Cardiac enzymes; troponin was 0.396, then 0.6, then 0.581. EKG did show initially sinus rhythm with a first-degree AV block. He has also had some type 1 second-degree block (Wenckebach) and also some 2:1 block with rate in the 50s. ASSESSMENT: 1. Non-ST elevation myocardial infarction. 2. The patient is on Eliquis, last dose yesterday morning. 3. Renal insufficiency. Estimated GFR is 47. PLAN: 1. Intravenous hydration. 2. Eliquis was stopped, last dose yesterday morning. 3. Give aspirin. 4. Give him one dose of Lovenox. 5. Proceed to cardiac catheterization tomorrow morning. This will give us 48 hours off the Eliquis. Also, give time to hydrate him to reduce risk of renal failure. Risks of catheterization including stroke, heart attack, iodine allergy, loss of blood supply to leg or kidney, stent thrombosis, stent restenosis discussed, the patient understands and wishes to proceed. Job ID: [id number]
[2020-03-11] MEDS: Nitroglycerin 2% Ointment 1 INCH/1 GM Packet TOP SCH ×3 (04:10→22:00)
[2020-03-11 04:12] LABS: #Eosinphils 0.1 thou/uL (0.0-0.7); #Lymphocytes 2.2 thou/uL (1.20-3.40); #Monocytes 0.8 thou/uL (0.11-0.59); #Neutrophils 5.5 thou/uL (1.40-6.50); %Basophils 0.4 % (0.0-1.0); %Eosinophils 0.9 % (0.0-10.0); %Lymphocytes 25.8 % (21.0-51.0); %Monocytes 9.4 % (0.0-10.0); %Neutrophils 63.5 % (42.0-75.0); Hemoglobin 9.8 g/dL (14.0-18.0); Mean Corpuscular HGB CONC 31.4 g/dL (32.0-36.0); Mean Corpuscular Hemoglobin 27.3 pg (27.0-31.0); Mean Corpuscular Volume 86.8 fL (78.0-98.0); Platelet Count 136 thou/uL (130-400); RBC Distribution Width 12.6 % (11.5-14.5); Red Blood Cell (RBC) Count 3.58 mill/uL (4.70-6.10); White Blood Cell (WBC) Count 8.7 thou/uL (4.8-10.8)
[2020-03-11 04:27] LABS: Anion Gap 12 mmol/L (10-20); BUN (Urea Nitrogen) 30 mg/dL (8.4-25.7); Calc. Creatinine Clearance 40 mL/min (70-130); Calcium 7.7 mg/dL (7.8-10.44); Carbon Dioxide 21 mmol/L (23-31); Chloride 110 mmol/L (98-107); Estimated GFR-MDRD 38; Glucose 166 mg/dL (83-110); Potassium 4.2 mmol/L (3.5-5.1); Sodium 139 mmol/L (136-145)
[2020-03-11] MEDS: Famotidine 20 MG TAB PO SCH (05:37)
[2020-03-11] MEDS: Aspirin 325 mg Enteric Coated Tablet PO SCH (05:37)
[2020-03-11] MEDS ORDERED: Enoxaparin Sodium 100 MG/ML SYRINGE SC SCH (08:15)
--- NOTE | 2020-03-11 08:29 | PRG ---
DATE OF SERVICE: 03/11/2020 SUBJECTIVE: Mr. Abernathy is resting comfortably , not having chest pain or pressure. OBJECTIVE: VITAL SIGNS: His blood pressure is 160/76, pulse in the 50s. The patient is in second-degree AV block, type 1. He did have some transient two-to-one AV block last night. LUNGS: Clear. CARDIAC: Normal S1, normal S2. ABDOMEN: Soft and nontender. EXTREMITIES: No edema. LABORATORY DATA AND IMAGING STUDIES: Echocardiogram showed normal left ventricular function. Creatinine has increased to 2.09 from 1.75. Estimated GFR went from 47 to 38. ASSESSMENT: 1. Coronary artery disease. 2. Renal failure stage 3, but unfortunately worsening, at least temporarily. 3. Second-degree block, type 1, could be potentially ischemic. 4. Diabetes. 5. Coronary artery disease. PLAN: 1. We will hold off on catheterization today in view of the increased creatinine and current asymptomatic status. 2. Plan for cardiac catheterization tomorrow. We will continue hydration today. Dr. Estrella will be back tomorrow to take care of the patient. Job ID: [id number]
[2020-03-11] MEDS ORDERED: hydrALAZINE 25 MG TAB PO SCH (09:00)
[2020-03-11] MEDS ORDERED: Sodium Bicarbonate 150 MEQ in Dextrose 5% in Water 1,000 ML IV SCH ×2 (09:00)
[2020-03-11] MEDS: Sodium Chloride 0.9% 1,000 ML IV SCH ×3 (09:31→22:33)
[2020-03-11] MEDS ORDERED: Amlodipine 5 MG TAB PO SCH (09:45)
[2020-03-11] MEDS: HumaLOG 300 UNITS/3 ML VIAL SC PRN ×2 (11:11→16:46)
--- NOTE | 2020-03-11 16:14 | PDOC.HOSPP ---
- Subjective Encounter Date: 03/11/20 Encounter Time: 16:13 Subjective: Mr. Abernathy was seen and evaluated earlier today. This is a 74-year-old admitted to the hospital for non-ST elevation [place]. He is been evaluated by cardiology with plans for heart cath. Unfortunately his renal function slightly worsened overnight and this procedure was put on hold. Cardiology to reevaluate tomorrow and make further determination regarding doing a heart cath. Today on my exam patient denies any more chest discomfort. - Objective Vital Signs & Weight: Vital Signs (12 hours) Temp Pulse Resp BP BP Pulse Ox 03/11/20 15:15 98.4 F 59 L 12 164/80 H 99 03/11/20 13:05 163/75 H 03/11/20 12:00 97.6 F 43 L 17 199/88 H 100 03/11/20 07:55 98.4 F 54 L 18 178/84 H 98 Weight Weight 197 lb I&O: 03/10/20 03/11/20 03/12/20 06:59 06:59 06:59 Intake Total 500 1460 Output Total 450 625 Balance 50 835 Result Diagrams: 03/11/20 03:29 03/11/20 03:29 Additional Labs: Accuchecks 03/11/20 03/11/20 03/10/20 10:38 06:25 21:50 POC Glucose 238 H 161 H 197 H 03/10/20 17:39 POC Glucose 242 H Radiology Reviewed by me: Yes EKG Reviewed by me: Yes Hospitalist ROS - Review of Systems Constitutional: reports: weakness, malaise Cardiovascular: reports: chest pain, palpitations, edema Gastrointestinal: reports: nausea - Medication Medications: Active Medications Generic Name Dose Route Start Last Admin Trade Name Freq PRN Reason Stop Dose Admin Acetaminophen 650 mg 03/09/20 21:29 03/10/20 07:58 Acetaminophen 325 Mg Tab PO 650 mg Q4H PRN Administration Headache/Fever/Mild Pain (1-3) Aspirin 325 mg 03/10/20 09:00 03/11/20 05:37 Aspirin 325 Mg Enteric Coated Tablet PO 325 mg DAILY JAGUAR Administration Famotidine 20 mg 03/10/20 09:00 03/11/20 05:37 Famotidine 20 Mg Tab PO 20 mg 0900 JAGUAR Administration Sodium Chloride 1,000 mls @ 75 mls/hr 03/11/20 09:45 03/11/20 10:03 Normal Saline 0.9% IV Not Given .[id number] [facility] Insulin Human Lispro 0 units 03/09/20 22:32 03/11/20 11:11 Humalog 300 Units/3 Ml Vial SC 3 unit .MILD SLIDING SCALE PRN Administration Mild Correctional Scale Morphine Sulfate 2 mg 03/10/20 10:20 03/10/20 17:16 Morphine 2 Mg/Ml Vial SLOW IVP 2 mg Q6H PRN Administration Severe Pain (7-10) Nitroglycerin 0.4 mg 03/10/20 02:07 03/10/20 09:37 Nitroglycerin 0.4 Mg Tab (25 Tab Bottle) SL 0.4 mg Q5MIN PRN Administration Chest Pain Nitroglycerin 1 inch 03/10/20 12:00 03/11/20 11:11 Nitroglycerin 2% Ointment 1 Inch/1 Gm Packet TOP 1 inch 0400,1200,2000 JAGUAR Administration Ondansetron HCl 4 mg 03/10/20 10:19 03/10/20 11:03 Ondansetron Pf 4 Mg/2 Ml Vial IVP 4 mg Q6H PRN Administration Nausea/Vomiting - Exam General Appearance: NAD, awake alert Eye: PERRL, anicteric sclera ENT: normocephalic atraumatic, no oropharyngeal lesions, moist mucosa Neck: supple, symmetric, no JVD, no thyromegaly, no lymphadenopathy Heart: RRR, no murmur, no gallops, no rubs Respiratory: CTAB Gastrointestinal: soft, non-tender, non-distended, normal bowel sounds Extremities: no cyanosis, no clubbing Skin: normal turgor Neurological: cranial nerve grossly intact, normal sensation to touch Musculoskeletal: normal tone, normal strength, no muscle wasting Psychiatric: normal affect, normal behavior, A&O x 3 Hosp A/P (1) NSTEMI (non-ST elevated myocardial infarction) Code(s): I21.4 - NON-ST ELEVATION (NSTEMI) MYOCARDIAL INFARCTION Status: Acute Plan: He is chest pain-free now. Cardiology plans to do a heart cath on him prior to discharge home. (2) Hypertensive urgency Code(s): I16.0 - HYPERTENSIVE URGENCY Status: Acute (3) DM2 (diabetes mellitus, type 2) Status: Chronic Qualifiers: Diabetes mellitus terminal operator insulin use: without terminal operator use Diabetes mellitus complication status: without complication Qualified Code(s): E11.9 - Type 2 diabetes mellitus without complications (4) HLD (hyperlipidemia) Code(s): E78.5 - HYPERLIPIDEMIA, UNSPECIFIED Status: Chronic Qualifiers: Hyperlipidemia type: mixed hyperlipidemia Qualified Code(s): E78.2 - Mixed hyperlipidemia (5) DEE (acute kidney injury) Code(s): N17.9 - ACUTE KIDNEY FAILURE, UNSPECIFIED Status: Acute Plan: Patient now with likely acute kidney injury. There may be some component of chronic kidney injury as well. I will try to address his fluid hopefully this should improve his renal function. - Plan old records reviewed/req, plan discussed w/ family, PT/OT
[2020-03-11] MEDS: Morphine 2 MG/ML VIAL SLOW IVP PRN (16:46)
[2020-03-11] MEDS ORDERED: Communication Order-Pharmacy FS SCH (17:30)
[2020-03-11] MEDS: Acetaminophen 325 MG TAB PO PRN (20:58)
[2020-03-11] MEDS ORDERED: Enoxaparin Sodium 80 MG/0.8 ML SYRINGE SC SCH (21:00)
[2020-03-11] MEDS: hydrALAZINE 20 MG/ML VIAL SLOW IVP PRN (21:02)
[2020-03-12 03:05] LABS: Hemoglobin 10.5 g/dL (14.0-18.0); Platelet Count 141 thou/uL (130-400)
[2020-03-12 03:26] LABS: Anion Gap 13 mmol/L (10-20); BUN (Urea Nitrogen) 26 mg/dL (8.4-25.7); Calc. Creatinine Clearance 44 mL/min (70-130); Calcium 8.1 mg/dL (7.8-10.44); Carbon Dioxide 21 mmol/L (23-31); Chloride 109 mmol/L (98-107); Estimated GFR-MDRD 42; Glucose 234 mg/dL (83-110); Magnesium 1.8 mg/dL (1.6-2.6); Potassium 4.4 mmol/L (3.5-5.1); Sodium 139 mmol/L (136-145)
[2020-03-12] MEDS: Famotidine 20 MG TAB PO SCH (05:00)
[2020-03-12] MEDS: Aspirin 325 mg Enteric Coated Tablet PO SCH (05:00)
[2020-03-12] MEDS: hydrALAZINE 20 MG/ML VIAL SLOW IVP PRN ×2 (05:01→14:36)
[2020-03-12] MEDS: Nitroglycerin 2% Ointment 1 INCH/1 GM Packet TOP SCH ×3 (05:06→13:47)
--- NOTE | 2020-03-12 08:12 | RAD ---
EXAM: Abdomen one view: HISTORY: Distention nausea and no bowel movement COMPARISON: 03/10/2020 FINDINGS: Postoperative fixation changes of the pubis region. No evidence for large or small bowel obstruction. No free intraperitoneal air or extraluminal gas. No overt calculus. There is some scattered fecal material but no evidence for a fecal filled distended rectum. IMPRESSION: No acute process.
[2020-03-12] MEDS ORDERED: Amlodipine 5 MG TAB PO SCH (09:00)
[2020-03-12] MEDS ORDERED: Fentanyl 100 MCG/2 ML VIAL SLOW IVP SCH (09:15)
[2020-03-12] MEDS: Nitroglycerin 0.4 MG TAB (25 Tab Bottle) SL PRN ×2 (09:27→15:22)
[2020-03-12] MEDS ORDERED: Iopamidol 370 76% 100 ML VIAL ONE (09:45)
[2020-03-12] MEDS ORDERED: Iopamidol 370 76% 50 ML VIAL FS ONE (09:45)
[2020-03-12] MEDS ORDERED: cloNIDine 0.1 MG TAB PO SCH (12:00)
[2020-03-12] MEDS ORDERED: Fentanyl 100 MCG/2 ML VIAL ONE ×2 (12:20→17:02)
[2020-03-12] MEDS ORDERED: Midazolam HCl 2 mg/2 ml Vial ONE ×2 (12:20→17:02)
[2020-03-12] MEDS ORDERED: hydrALAZINE 20 MG/ML VIAL ONE ×2 (12:30→14:25)
[2020-03-12] MEDS ORDERED: Heparin 10,000 UNITS/ 10 ML VIAL ONE (12:43)
[2020-03-12] MEDS ORDERED: Adenosine 6 MG/2 ML VIAL ONE (12:44)
[2020-03-12] MEDS ORDERED: Nitroglycerin 100MG/250ML BOT 250 ML ONE (12:44)
[2020-03-12] MEDS ORDERED: Verapamil 5 MG/2 ML VIAL ONE (12:44)
--- NOTE | 2020-03-12 12:44 | PDOC.HOSPP ---
- Subjective Encounter Date: 03/12/20 Encounter Time: 12:43 Subjective: Patient is going in today for left heart cath. Nursing staff reported this morning that he has some chest discomfort but by the time that I saw him he was completely asymptomatic. - Objective Vital Signs & Weight: Vital Signs (12 hours) Temp Pulse Resp BP BP Pulse Ox 03/12/20 11:57 200/88 H 03/12/20 11:24 98.0 F 78 18 200/88 H 99 03/12/20 07:36 98.0 F 58 L 19 192/86 H 100 03/12/20 05:54 98 03/12/20 04:42 186/72 H 03/12/20 04:13 98.6 F 61 16 98 Weight Weight 200 lb 8 oz I&O: 03/11/20 03/12/20 03/13/20 06:59 06:59 06:59 Intake Total 1460 880 480 Output Total 625 450 900 Balance 835 430 -420 Result Diagrams: 03/12/20 02:49 03/12/20 02:49 Additional Labs: Accuchecks 03/12/20 03/12/20 03/11/20 10:45 06:44 20:43 POC Glucose 172 H 195 H 183 H 03/11/20 03/09/20 16:42 23:29 POC Glucose 186 H 125 H Radiology Reviewed by me: Yes EKG Reviewed by me: Yes Hospitalist ROS - Review of Systems ROS unobtainable: due to mental status Cardiovascular: reports: chest pain, palpitations, paroxysmal noc. dyspnea Gastrointestinal: reports: nausea, vomiting - Medication Medications: Active Medications Generic Name Dose Route Start Last Admin Trade Name Javonq PRN Reason Stop Dose Admin Acetaminophen 650 mg 03/09/20 21:29 03/11/20 20:58 Acetaminophen 325 Mg Tab PO 650 mg Q4H PRN Administration Headache/Fever/Mild Pain (1-3) Amlodipine Besylate 5 mg 03/12/20 09:00 03/12/20 05:00 Amlodipine 5 Mg Tab PO 5 mg DAILY JAGUAR Administration Aspirin 325 mg 03/10/20 09:00 03/12/20 05:00 Aspirin 325 Mg Enteric Coated Tablet PO 325 mg DAILY JAGUAR Administration Clonidine 0.1 mg 03/12/20 12:00 03/12/20 11:57 Clonidine 0.1 Mg Tab PO 03/12/20 14:00 0.1 mg NOW JAGUAR Administration Famotidine 20 mg 03/10/20 09:00 03/12/20 05:00 Famotidine 20 Mg Tab PO 20 mg 0900 JAGUAR Administration Hydralazine HCl 10 mg 03/11/20 20:07 03/12/20 05:01 Hydralazine 20 Mg/Ml Vial SLOW IVP 10 mg Q4H PRN Administration SBP Greater Than 180 Sodium Chloride 1,000 mls @ 75 mls/hr 03/11/20 09:45 03/11/20 22:33 Normal Saline 0.9% IV 1,000 mls .[id number] JAGUAR Administration Morphine Sulfate 2 mg 03/10/20 10:20 03/11/20 16:46 Morphine 2 Mg/Ml Vial SLOW IVP 2 mg Q6H PRN Administration Severe Pain (7-10) Nitroglycerin 0.4 mg 03/10/20 02:07 03/12/20 09:27 Nitroglycerin 0.4 Mg Tab (25 Tab Bottle) SL 0.4 mg Q5MIN PRN Administration Chest Pain Nitroglycerin 1 inch 03/10/20 12:00 03/12/20 11:38 Nitroglycerin 2% Ointment 1 Inch/1 Gm Packet TOP Not Given 0400,1200,1999 [facility] - Exam General Appearance: awake alert, ill appearing Eye: PERRL, anicteric sclera ENT: normocephalic atraumatic, no oropharyngeal lesions Neck: supple, symmetric, no JVD, no thyromegaly Heart: RRR, no murmur, no gallops, no rubs Respiratory: CTAB, no wheezes, no rales, no ronchi, normal chest expansion Gastrointestinal: soft, non-tender, non-distended, normal bowel sounds, no palpable masses Extremities: no cyanosis Neurological: cranial nerve grossly intact, normal sensation to touch, no weakness, no focal deficits Musculoskeletal: normal tone, normal strength, no muscle wasting Psychiatric: normal affect, normal behavior, A&O x 3 Hosp A/P (1) NSTEMI (non-ST elevated myocardial infarction) Code(s): I21.4 - NON-ST ELEVATION (NSTEMI) MYOCARDIAL INFARCTION Status: Acute (2) Hypertensive urgency Code(s): I16.0 - HYPERTENSIVE URGENCY Status: Acute (3) DM2 (diabetes mellitus, type 2) Status: Chronic Qualifiers: Diabetes mellitus termite helper insulin use: without assisted use Diabetes mellitus complication status: without complication Qualified Code(s): E11.9 - Type 2 diabetes mellitus without complications (4) HLD (hyperlipidemia) Code(s): E78.5 - HYPERLIPIDEMIA, UNSPECIFIED Status: Chronic Qualifiers: Hyperlipidemia type: mixed hyperlipidemia Qualified Code(s): E78.2 - Mixed hyperlipidemia (5) DEE (acute kidney injury) Code(s): N17.9 - ACUTE KIDNEY FAILURE, UNSPECIFIED Status: Acute - Plan PT/OT #1. Non-ST elevation [place]. Plan for left heart cath today. 2. Coronary artery disease with prior stents. Continue routine home medications. 3. Type 2 diabetes. Continue sliding scale coverage for now. 4. Dyslipidemia. Continue statins. 5. Acute kidney injury. We will keep an eye on this very close especially after his heart cath.
[2020-03-12] MEDS ORDERED: Clopidogrel Bisulfate 300 MG TAB ONE (12:59)
[2020-03-12] MEDS ORDERED: Nitroglycerin 2% Ointment 1 INCH/1 GM Packet ONE (13:47)
[2020-03-12] MEDS ORDERED: Morphine 2 MG/ML VIAL ONE (14:25)
[2020-03-12] MEDS: Morphine 2 MG/ML VIAL SLOW IVP PRN (14:26)
[2020-03-12] MEDS ORDERED: Sodium Chloride 0.9% 1,000 ML IV SCH (14:30)
--- NOTE | 2020-03-12 14:43 | PRG ---
DATE OF SERVICE: 03/12/2020 Mr. Abernathy did have an episode of chest pain overnight. He is currently chest pain free. Given his troponin and recurrent episode of pain, we would recommend coronary angiography and possible PCI. I discussed procedure in full detail with Mr. Abernathy. Risks include, but not limited to the following: I discussed the procedure in full detail with the patient. The risks of the procedure were also discussed. The risks of the procedure include but are not limited to the following: , stroke, [place], need for emergency surgery, loss of limb, bleeding, and infection, as well as a reaction to the dye causing kidney failure and needing long-term dialysis. I also discussed the risks of PCI to include all of the above including coronary dissection and perforation in addition to acute stent thrombosis and restenosis. All questions about the procedure were answered. Given the above, the patient agreed to proceed with coronary angiography and possible PCI. I also discussed drug-coated versus nondrug-coated stent placement. There were no contraindications. We will proceed if needed. Further recommendations pending the above. Job ID: [id number]
[2020-03-12] MEDS ORDERED: cloNIDine 0.1 MG TAB ONE (15:14)
[2020-03-12] MEDS ORDERED: Amlodipine 5 MG TAB ONE (15:14)
[2020-03-12] MEDS ORDERED: Nitroglycerin 0.4 MG TAB (25 Tab Bottle) ONE (15:19)
[2020-03-12] MEDS ORDERED: Acetaminophen 325 MG TAB ONE (15:20)
[2020-03-12] MEDS: Acetaminophen 325 MG TAB PO PRN (15:22)
[2020-03-12] MEDS ORDERED: niCARdipine 25 MG in Sodium Chloride 0.9% 250 ML 240 ML IVPB SCH (16:00)
[2020-03-12] MEDS: Sodium Chloride 0.9% 1,000 ML IV SCH ×2 (16:30→19:42)
--- NOTE | 2020-03-12 16:42 | PRG ---
DATE OF SERVICE: 03/12/2020 I was called today by Mr. Abernathy's nurse. He was complaining of having 10/10 chest pain. His blood pressure has also been elevated. I quickly went to go and see Mr. Abernathy and his status. He did appear very comfortable. He states his pain was subsiding, it was 3/10. EKG with little change from previous EKG. At this point, recommend adding Cardene for better blood pressure management. We would also recommend proceeding coronary angiography to assess the stented area. Given that he continues to have pain despite nitroglycerin and medications to relieve his pain, we will take a few images just to make sure the stent is patent. I did discuss this with his family. Job ID: [id number]
[2020-03-12] MEDS ORDERED: Sodium Chloride 0.9% 200 ML IV PRN (17:16)
[2020-03-12] MEDS ORDERED: Acetaminophen/Codeine 30-300mg Tablet PO PRN (17:16)
[2020-03-12] MEDS ORDERED: Nitroglycerin 0.4 MG TAB (25 Tab Bottle) SL PRN (17:16)
[2020-03-12] MEDS: Acetaminophen/Codeine 30-300mg Tablet PO PRN (19:32)
[2020-03-12] MEDS ORDERED: Acetaminophen/Codeine 30-300mg Tablet ONE (19:33)
[2020-03-12] MEDS: HumaLOG 300 UNITS/3 ML VIAL SC PRN (22:30)
[2020-03-13 04:21] LABS: #Eosinphils 0.1 thou/uL (0.0-0.7); #Lymphocytes 1.5 thou/uL (1.20-3.40); #Monocytes 0.6 thou/uL (0.11-0.59); #Neutrophils 3.9 thou/uL (1.40-6.50); %Basophils 0.4 % (0.0-1.0); %Lymphocytes 24.6 % (21.0-51.0); %Monocytes 9.7 % (0.0-10.0); %Neutrophils 63.3 % (42.0-75.0); Mean Corpuscular Hemoglobin 27.4 pg (27.0-31.0); Mean Corpuscular Volume 85.5 fL (78.0-98.0); Mean Platelet Volume 9.5 fL (7.4-10.4); Platelet Count 137 thou/uL (130-400); RBC Distribution Width 12.5 % (11.5-14.5); Red Blood Cell (RBC) Count 3.66 mill/uL (4.70-6.10); White Blood Cell (WBC) Count 6.2 thou/uL (4.8-10.8)
[2020-03-13 04:40] LABS: ALT (SGPT) 12 U/L (8-55); AST (SGOT) 17 U/L (5-34); Albumin 2.9 g/dL (3.4-4.8); Alkaline Phosphatase 52 U/L (40-110); Anion Gap 14 mmol/L (10-20); BUN (Urea Nitrogen) 23 mg/dL (8.4-25.7); Bilirubin, Total 0.6 mg/dL (0.2-1.2); Calc. Creatinine Clearance 55 mL/min (70-130); Calcium 8.2 mg/dL (7.8-10.44); Carbon Dioxide 20 mmol/L (23-31); Chloride 109 mmol/L (98-107); Estimated GFR-MDRD 53; Globulin 2.8 g/dL (2.4-3.5); Glucose 178 mg/dL (83-110); Magnesium 1.6 mg/dL (1.6-2.6); Potassium 3.9 mmol/L (3.5-5.1); Protein, Total 5.7 g/dL (5.8-8.1); Sodium 139 mmol/L (136-145)
[2020-03-13] MEDS: Nitroglycerin 2% Ointment 1 INCH/1 GM Packet TOP SCH ×3 (05:01→20:47)
[2020-03-13] MEDS: Sodium Chloride 0.9% 1,000 ML IV SCH (05:01)
[2020-03-13] MEDS: HumaLOG 300 UNITS/3 ML VIAL SC PRN ×2 (06:20→12:50)
[2020-03-13] MEDS: Clopidogrel Bisulfate 75 MG TAB PO SCH (08:49)
[2020-03-13] MEDS: Amlodipine 10 MG TAB PO SCH (08:49)
[2020-03-13] MEDS: Famotidine 20 MG TAB PO SCH (08:49)
[2020-03-13] MEDS: Aspirin Chewable 81 MG TAB PO SCH (08:49)
[2020-03-13] MEDS ORDERED: Carvedilol 3.125 MG TAB PO SCH (09:00)
--- NOTE | 2020-03-13 09:45 | PRG ---
DATE OF SERVICE: 03/13/2020 SUBJECTIVE: Mr. Abernathy is doing much better today. No current complaints. No chest pain pressure. His blood pressure is better overall. His Cardene was discontinued overnight. I have made some changes to his blood pressure regime. Please see below. OBJECTIVE: VITAL SIGNS: Blood pressure 170/81, pulse 66, respirations 20. LUNGS: Clear to auscultation. HEART: Regular rate and rhythm. ABDOMEN: Soft, nontender, nondistended. EXTREMITIES: No edema. PERTINENT LABORATORY DATA: Hemoglobin 10.0. Creatinine down to 1.57 from 1.9. IMPRESSION: 1. Non-Q-wave myocardial infarction. 2. Coronary artery disease. 3. Status post stent placement. 4. Hypertensive urgency. RECOMMENDATIONS: We will continue to change Mr. Abernathy' medications. We will increase Norvasc to 10 mg one p.o. q.a.m. and add carvedilol 3.125 one p.o. b.i.d. We will consider hydralazine if needed. If blood pressure is stable, will be okay to transfer to telemetry monitoring. Job ID: [id number]
[2020-03-13] MEDS: hydrALAZINE 25 MG TAB PO SCH ×2 (15:06→22:19)
[2020-03-13] MEDS: Carvedilol 6.25 MG TAB PO SCH (16:32)
--- NOTE | 2020-03-13 17:10 | PDOC.HOSPP ---
- Subjective Encounter Date: 03/13/20 Encounter Time: 17:08 Subjective: He had a LHC done yesterday and ended up with stents. His BP has been pretty elevated since and we are adjusting his medicines appropriately. He can probably be discharged in AM. - Objective Vital Signs & Weight: Vital Signs (12 hours) Temp Pulse BP Pulse Ox 03/13/20 16:32 192/69 H 03/13/20 16:00 98.4 F 03/13/20 15:06 74 190/88 H 03/13/20 12:00 98.7 F 03/13/20 08:49 74 190/88 H 03/13/20 08:00 98.8 F 97 Weight Weight 200 lb 8 oz Most Recent Monitor Data Heart Rate from ECG 66 NIBP 192/69 NIBP BP-Mean 110 Respiration from ECG 13 SpO2 98 I&O: 03/12/20 03/13/20 03/14/20 06:59 06:59 06:59 Intake Total 880 1869 650 Output Total 450 1450 1050 Balance 430 419 -400 Result Diagrams: 03/13/20 03:58 03/13/20 03:58 Additional Labs: Accuchecks 03/13/20 03/13/20 03/13/20 16:09 11:41 06:19 POC Glucose 126 H 198 H 158 H 03/12/20 03/12/20 22:28 18:02 POC Glucose 209 H 175 H Radiology Reviewed by me: Yes EKG Reviewed by me: Yes Hospitalist ROS - Review of Systems ROS unobtainable: due to mental status Cardiovascular: reports: chest pain - Medication Medications: Active Medications Generic Name Dose Route Start Last Admin Trade Name Romel PRN Reason Stop Dose Admin Acetaminophen 650 mg 03/09/20 21:29 03/12/20 15:22 Acetaminophen 325 Mg Tab PO 650 mg Q4H PRN Administration Headache/Fever/Mild Pain (1-3) Acetaminophen/Codeine Phosphate 2 tab 03/12/20 17:16 03/12/20 19:32 Acetaminophen/Codeine 30-300mg Tablet PO 2 tab Q4H PRN Administration Moderate Pain (4-6) Amlodipine Besylate 10 mg 03/13/20 07:12 03/13/20 08:49 Amlodipine 10 Mg Tab PO 10 mg DAILY JAGUAR Administration Aspirin 81 mg 03/13/20 09:00 03/13/20 08:49 Aspirin Chewable 81 Mg Tab PO 81 mg DAILY JAGUAR Administration Carvedilol 12.5 mg 03/13/20 17:00 03/13/20 16:32 Carvedilol 6.25 Mg Tab PO 12.5 mg BID-WM JAGUAR Administration Clopidogrel Bisulfate 75 mg 03/13/20 09:00 03/13/20 08:49 Clopidogrel Bisulfate 75 Mg Tab PO 75 mg DAILY JAGUAR Administration Famotidine 20 mg 03/10/20 09:00 03/13/20 08:49 Famotidine 20 Mg Tab PO 20 mg 0900 JAGUAR Administration Hydralazine HCl 10 mg 03/11/20 20:07 03/12/20 14:36 Hydralazine 20 Mg/Ml Vial SLOW IVP 10 mg Q4H PRN Administration SBP Greater Than 180 Hydralazine HCl 75 mg 03/13/20 15:00 03/13/20 15:06 Hydralazine 25 Mg Tab PO 75 mg TID JAGUAR Administration Nicardipine HCl 25 mg/ Sodium 250 mls @ 25 mls/hr 03/12/20 16:00 03/13/20 05:04 Chloride IVPB 250 mls INF JAGUAR Administration Protocol 2.5 MG/HR Insulin Human Lispro 0 units 03/12/20 19:25 03/13/20 12:50 Humalog 300 Units/3 Ml Vial SC 2 unit .MILD SLIDING SCALE PRN Administration Mild Correctional Scale Insulin Human Lispro 0 units 03/12/20 19:25 03/12/20 22:30 Humalog 300 Units/3 Ml Vial SC 2 unit .BEDTIME SLIDING SC PRN Administration Bedtime Correctional Scale Morphine Sulfate 2 mg 03/10/20 10:20 03/12/20 14:26 Morphine 2 Mg/Ml Vial SLOW IVP 2 mg Q6H PRN Administration Severe Pain (7-10) Nitroglycerin 1 inch 03/10/20 12:00 03/13/20 12:49 Nitroglycerin 2% Ointment 1 Inch/1 Gm Packet TOP Not Given 0400,1200,2000 JAGUAR - Exam General Appearance: NAD, awake alert Eye: PERRL, anicteric sclera ENT: normocephalic atraumatic, no oropharyngeal lesions Neck: supple, symmetric, no JVD, no thyromegaly, no lymphadenopathy Heart: RRR, no murmur, no gallops, no rubs, normal peripheral pulses Respiratory: CTAB, no wheezes, no rales, no ronchi, normal chest expansion Gastrointestinal: soft, non-tender, non-distended, normal bowel sounds Neurological: cranial nerve grossly intact, normal sensation to touch Musculoskeletal: normal tone, normal strength, no muscle wasting Psychiatric: normal affect, normal behavior, A&O x 3 Hosp A/P (1) NSTEMI (non-ST elevated myocardial infarction) Code(s): I21.4 - NON-ST ELEVATION (NSTEMI) MYOCARDIAL INFARCTION Status: Acute (2) Hypertensive urgency Code(s): I16.0 - HYPERTENSIVE URGENCY Status: Acute (3) DM2 (diabetes mellitus, type 2) Status: Chronic Qualifiers: Diabetes mellitus mcc insulin use: without acetylene torch operator use Diabetes mellitus complication status: without complication Qualified Code(s): E11.9 - Type 2 diabetes mellitus without complications (4) HLD (hyperlipidemia) Code(s): E78.5 - HYPERLIPIDEMIA, UNSPECIFIED Status: Chronic Qualifiers: Hyperlipidemia type: mixed hyperlipidemia Qualified Code(s): E78.2 - Mixed hyperlipidemia (5) DEE (acute kidney injury) Code(s): N17.9 - ACUTE KIDNEY FAILURE, UNSPECIFIED Status: Acute - Plan #1. Non-ST elevation [place]. Plan for left heart cath today. 03/13/20 He had some stents placed yesterday. Continue current care. 2. Coronary artery disease with prior stents. Continue routine home medications. 03/13/20. Continue home medicines. 3. Type 2 diabetes. Continue sliding scale coverage for now. 4. Dyslipidemia. Continue statins. 5. Acute kidney injury. We will keep an eye on this very close especially after his heart cath.
[2020-03-13] MEDS: hydrALAZINE 20 MG/ML VIAL SLOW IVP PRN (17:54)
[2020-03-13] MEDS ORDERED: Simethicone Chewable 80 MG TAB PO PRN (20:24)
[2020-03-13] MEDS: DULoxetine 30 MG CAP PO SCH (20:47)
[2020-03-14 02:34] LABS: Hemoglobin 10.8 g/dL (14.0-18.0); Platelet Count 141 thou/uL (130-400)
[2020-03-14] MEDS: Carvedilol 6.25 MG TAB PO SCH ×2 (07:52→17:33)
[2020-03-14] MEDS: hydrALAZINE 25 MG TAB PO SCH ×3 (08:04→20:14)
[2020-03-14] MEDS: Amlodipine 10 MG TAB PO SCH (08:05)
[2020-03-14] MEDS: Aspirin Chewable 81 MG TAB PO SCH (08:05)
[2020-03-14] MEDS: Famotidine 20 MG TAB PO SCH (08:05)
[2020-03-14] MEDS: Clopidogrel Bisulfate 75 MG TAB PO SCH (08:05)
--- NOTE | 2020-03-14 08:14 | PRG ---
DATE OF SERVICE: 03/14/2020 SUBJECTIVE: Systolic blood pressure remains elevated as 175/90. Heart rate stable at 64 to 73. No current complaints. He is doing well. No chest pain or pressure noted. OBJECTIVE: VITAL SIGNS: Blood pressure 175/90, pulse 64, and temperature afebrile. LUNGS: Clear to auscultation. HEART: Regular rate and rhythm. ABDOMEN: Soft, nontender, and nondistended. EXTREMITIES: No edema. PERTINENT LABORATORY DATA: Hemoglobin 10.8. BNP none today. IMPRESSION: 1. Non-Q-wave myocardial infarction. 2. Hypertension. 3. Coronary artery disease. RECOMMENDATIONS: I made a few adjustments in Mr. Abernathy's regimen. He continues on amlodipine in addition to carvedilol 12.5 b.i.d. Continue aspirin and Plavix. I have increased his hydralazine to 100 mg one p.o. t.i.d. and will consider going to q.i.d. If blood pressure is not better, may consider renal artery stenosis as a secondary cause. We will check a random cortisol level. We will also perform a 24-hour urine metanephrine collection. Job ID: [id number]
[2020-03-14] MEDS ORDERED: Spironolactone 25 MG TAB PO SCH (08:30)
--- NOTE | 2020-03-14 08:32 | EKG ---
Test Reason : Blood Pressure : / mmHG Vent. Rate : 055 BPM Atrial Rate : 055 BPM P-R Int : 258 ms QRS Dur : 108 ms QT Int : 482 ms P-R-T Axes : 029 039 056 degrees QTc Int : 461 ms Sinus bradycardia with 1st degree A-V block Nonspecific T wave abnormality Prolonged QT Abnormal ECG No previous ECGs available Confirmed by VENESSA CARVALHO MD ([id number]) on 03/14/2020 8:31:46 AM Referred By: FANI Confirmed By:VENESSA CARVALHO MD
--- NOTE | 2020-03-14 09:15 | EKG ---
Test Reason : STAT Blood Pressure : / mmHG Vent. Rate : 064 BPM Atrial Rate : 064 BPM P-R Int : 276 ms QRS Dur : 102 ms QT Int : 482 ms P-R-T Axes : 027 033 029 degrees QTc Int : 497 ms Sinus rhythm with 1st degree A-V block Nonspecific T wave abnormality Prolonged QT Abnormal ECG When compared with ECG of 09-MAR-2020 23:31, (Unconfirmed) No significant change was found Confirmed by VENESSA CARVALHO MD ([id number]) on 03/14/2020 9:13:57 AM Referred By: ZENA Confirmed By:VENESSA CARVALHO MD
[2020-03-14] MEDS: HumaLOG 300 UNITS/3 ML VIAL SC PRN ×2 (11:48→20:30)
[2020-03-14] MEDS: Nitroglycerin 2% Ointment 1 INCH/1 GM Packet TOP SCH ×2 (12:17→20:14)
--- NOTE | 2020-03-14 16:06 | PDOC.HOSPP ---
- Subjective Encounter Date: 03/14/20 Encounter Time: 16:04 Subjective: Mr. Abernathy was seen and evaluated today. This 74-year-old patient who presented to the hospital with NSTEMI is status post stents. He has had a rather difficult to control blood pressure. Earlier today he was noticed to have AV block on his rhythm strips. Cardiology will continue to evaluate him. - Objective Vital Signs & Weight: Vital Signs (12 hours) Temp BP Pulse Ox 03/14/20 13:19 192/76 H 03/14/20 12:00 98.8 F 03/14/20 08:05 192/76 H 03/14/20 08:04 192/76 H 03/14/20 08:00 98.4 F 97 03/14/20 07:52 192/76 H Weight Weight 200 lb 8 oz Most Recent Monitor Data Heart Rate from ECG 71 NIBP 181/84 NIBP BP-Mean 116 Respiration from ECG 14 SpO2 96 I&O: 03/13/20 03/14/20 03/15/20 06:59 06:59 06:59 Intake Total 1869 1670 610 Output Total 1450 2150 300 Balance 419 -480 310 Result Diagrams: 03/14/20 02:24 03/13/20 03:58 Additional Labs: Accuchecks 03/13/20 03/13/20 22:16 16:09 POC Glucose 196 H 126 H Radiology Reviewed by me: Yes EKG Reviewed by me: Yes Hospitalist ROS - Review of Systems ROS unobtainable: due to mental status Cardiovascular: reports: chest pain - Medication Medications: Active Medications Generic Name Dose Route Start Last Admin Trade Name Freq PRN Reason Stop Dose Admin Acetaminophen 650 mg 03/09/20 21:29 03/12/20 15:22 Acetaminophen 325 Mg Tab PO 650 mg Q4H PRN Administration Headache/Fever/Mild Pain (1-3) Acetaminophen/Codeine Phosphate 2 tab 03/12/20 17:16 03/12/20 19:32 Acetaminophen/Codeine 30-300mg Tablet PO 2 tab Q4H PRN Administration Moderate Pain (4-6) Amlodipine Besylate 10 mg 03/13/20 07:12 03/14/20 08:05 Amlodipine 10 Mg Tab PO 10 mg DAILY JAGUAR Administration Aspirin 81 mg 03/13/20 09:00 03/14/20 08:05 Aspirin Chewable 81 Mg Tab PO 81 mg DAILY [facility] Administration Clopidogrel Bisulfate 75 mg 03/13/20 09:00 03/14/20 08:05 Clopidogrel Bisulfate 75 Mg Tab PO 75 mg DAILY [facility] Administration Duloxetine HCl 30 mg 03/13/20 21:00 03/13/20 20:47 Duloxetine 30 Mg Cap PO 30 mg BID [facility] Administration Famotidine 20 mg 03/10/20 09:00 03/14/20 08:05 Famotidine 20 Mg Tab PO 20 mg 0900 [facility] Administration Hydralazine HCl 10 mg 03/11/20 20:07 03/13/20 17:54 Hydralazine 20 Mg/Ml Vial SLOW IVP 10 mg Q4H PRN Administration SBP Greater Than 180 Hydralazine HCl 100 mg 03/14/20 07:02 03/14/20 13:19 Hydralazine 25 Mg Tab PO 100 mg TID [facility] Administration Nicardipine HCl 25 mg/ Sodium 250 mls @ 25 mls/hr 03/12/20 16:00 03/13/20 05:04 Chloride IVPB 250 mls INF [facility] Administration Protocol 2.5 MG/HR Insulin Human Lispro 0 units 03/12/20 19:25 03/14/20 11:48 Humalog 300 Units/3 Ml Vial SC 2 unit .MILD SLIDING SCALE PRN Administration Mild Correctional Scale Insulin Human Lispro 0 units 03/12/20 19:25 03/12/20 22:30 Humalog 300 Units/3 Ml Vial SC 2 unit .BEDTIME SLIDING SC PRN Administration Bedtime Correctional Scale Morphine Sulfate 2 mg 03/10/20 10:20 03/12/20 14:26 Morphine 2 Mg/Ml Vial SLOW IVP 2 mg Q6H PRN Administration Severe Pain (7-10) Nitroglycerin 1 inch 03/10/20 12:00 03/14/20 12:17 Nitroglycerin 2% Ointment 1 Inch/1 Gm Packet TOP 1 inch 0400,1200,2000 [facility] Administration Simethicone 80 mg 03/13/20 20:24 03/13/20 20:48 Simethicone Chewable 80 Mg Tab PO 80 mg PCHS PRN Administration Gas Pain - Exam General Appearance: awake alert, ill appearing Eye: PERRL, anicteric sclera ENT: normocephalic atraumatic, no oropharyngeal lesions, moist mucosa Neck: supple, symmetric, no JVD, no thyromegaly Heart: RRR, no murmur, no gallops, no rubs, normal peripheral pulses Respiratory: CTAB, no wheezes, no rales, no ronchi Gastrointestinal: soft, non-tender, non-distended, normal bowel sounds Neurological: cranial nerve grossly intact Musculoskeletal: normal tone, normal strength Psychiatric: normal affect, normal behavior, A&O x 3 Hosp A/P (1) NSTEMI (non-ST elevated myocardial infarction) Code(s): I21.4 - NON-ST ELEVATION (NSTEMI) MYOCARDIAL INFARCTION Status: Acute (2) Hypertensive urgency Code(s): I16.0 - HYPERTENSIVE URGENCY Status: Acute (3) DM2 (diabetes mellitus, type 2) Status: Chronic Qualifiers: Diabetes mellitus intermediate insulin use: without intermediate use Diabetes mellitus complication status: without complication Qualified Code(s): E11.9 - Type 2 diabetes mellitus without complications (4) HLD (hyperlipidemia) Code(s): E78.5 - HYPERLIPIDEMIA, UNSPECIFIED Status: Chronic Qualifiers: Hyperlipidemia type: mixed hyperlipidemia Qualified Code(s): E78.2 - Mixed hyperlipidemia (5) DEE (acute kidney injury) Code(s): N17.9 - ACUTE KIDNEY FAILURE, UNSPECIFIED Status: Acute - Plan #1. Non-ST elevation [place]. Plan for left heart cath today. 03/13/20 He had some stents placed yesterday. Continue current care. 2. Coronary artery disease with prior stents. Continue routine home medications. 03/13/20. Continue home medicines. 3. Type 2 diabetes. Continue sliding scale coverage for now. 4. Dyslipidemia. Continue statins. 5. Acute kidney injury. We will keep an eye on this very close especially after his heart cath. #6. Accelerated hypertension. His blood pressure remains difficult to control. We will continue to optimize his medicines.
[2020-03-14] MEDS: hydrALAZINE 20 MG/ML VIAL SLOW IVP PRN (17:34)
[2020-03-14] MEDS: DULoxetine 30 MG CAP PO SCH (20:15)
[2020-03-14] MEDS: Atorvastatin Calcium 40 MG TAB PO SCH (20:15)
[2020-03-15] MEDS: Nitroglycerin 2% Ointment 1 INCH/1 GM Packet TOP SCH ×3 (03:00→20:19)
[2020-03-15] MEDS: Acetaminophen 325 MG TAB PO PRN ×2 (03:05→11:26)
[2020-03-15] MEDS: HumaLOG 300 UNITS/3 ML VIAL SC PRN ×3 (05:56→17:45)
[2020-03-15] MEDS ORDERED: Spironolactone 25 MG TAB PO SCH (08:00)
[2020-03-15] MEDS: Clopidogrel Bisulfate 75 MG TAB PO SCH (08:19)
[2020-03-15] MEDS: hydrALAZINE 25 MG TAB PO SCH ×3 (08:19→20:18)
[2020-03-15] MEDS: Amlodipine 10 MG TAB PO SCH (08:20)
[2020-03-15] MEDS: Carvedilol 6.25 MG TAB PO SCH ×2 (08:20→17:43)
[2020-03-15] MEDS: Famotidine 20 MG TAB PO SCH (08:20)
[2020-03-15] MEDS: Aspirin Chewable 81 MG TAB PO SCH (08:21)
[2020-03-15] MEDS: DULoxetine 30 MG CAP PO SCH ×2 (08:21→20:19)
--- NOTE | 2020-03-15 16:07 | PDOC.HOSPP ---
- Subjective Encounter Date: 03/15/20 Encounter Time: 16:05 Subjective: Mr. Abernathy was seen and evaluated today. He seems calm and collected. His blood pressure remains borderline controlled. He is being evaluated for either a jail facility placement or home health with PT. - Objective Vital Signs & Weight: Vital Signs (12 hours) Temp Pulse Resp BP BP Pulse Ox 03/15/20 15:32 98.0 F 54 L 16 170/83 H 98 03/15/20 11:22 98.1 F 58 L 18 191/84 H 99 03/15/20 08:30 98 03/15/20 07:28 98.8 F 64 18 189/90 H 98 Weight Weight 203 lb Most Recent Monitor Data Heart Rate from ECG 65 NIBP 166/76 NIBP BP-Mean 106 Respiration from ECG 14 SpO2 96 I&O: 03/14/20 03/15/20 03/16/20 06:59 06:59 06:59 Intake Total 1670 990 Output Total 2150 550 Balance -480 440 Result Diagrams: 03/14/20 02:24 03/13/20 03:58 Additional Labs: Accuchecks 03/15/20 03/15/20 03/14/20 11:55 05:22 20:14 POC Glucose 214 H 177 H 235 H Radiology Reviewed by me: Yes EKG Reviewed by me: Yes Hospitalist ROS - Review of Systems ROS unobtainable: due to mental status Respiratory: reports: SOB with excertion, pleuritic pain Cardiovascular: reports: chest pain - Medication Medications: Active Medications Generic Name Dose Route Start Last Admin Trade Name Freq PRN Reason Stop Dose Admin Acetaminophen 650 mg 03/09/20 21:29 03/15/20 11:26 Acetaminophen 325 Mg Tab PO 650 mg Q4H PRN Administration Headache/Fever/Mild Pain (1-3) Acetaminophen/Codeine Phosphate 2 tab 03/12/20 17:16 03/12/20 19:32 Acetaminophen/Codeine 30-300mg Tablet PO 2 tab Q4H PRN Administration Moderate Pain (4-6) Amlodipine Besylate 10 mg 03/13/20 07:12 03/15/20 08:20 Amlodipine 10 Mg Tab PO 10 mg DAILY JAGUAR Administration Aspirin 81 mg 03/13/20 09:00 03/15/20 08:21 Aspirin Chewable 81 Mg Tab PO 81 mg DAILY [facility] Administration Atorvastatin Calcium 40 mg 03/14/20 21:00 03/14/20 20:15 Atorvastatin Calcium 40 Mg Tab PO 40 mg HS [facility] Administration Carvedilol 6.25 mg 03/14/20 17:00 03/15/20 08:20 Carvedilol 6.25 Mg Tab PO 6.25 mg BID-WM [facility] Administration Clopidogrel Bisulfate 75 mg 03/13/20 09:00 03/15/20 08:19 Clopidogrel Bisulfate 75 Mg Tab PO 75 mg DAILY [facility] Administration Duloxetine HCl 30 mg 03/13/20 21:00 03/15/20 08:21 Duloxetine 30 Mg Cap PO 30 mg BID [facility] Administration Famotidine 20 mg 03/10/20 09:00 03/15/20 08:20 Famotidine 20 Mg Tab PO 20 mg 0900 [facility] Administration Hydralazine HCl 10 mg 03/11/20 20:07 03/14/20 17:34 Hydralazine 20 Mg/Ml Vial SLOW IVP 10 mg Q4H PRN Administration SBP Greater Than 180 Hydralazine HCl 100 mg 03/14/20 07:02 03/15/20 14:28 Hydralazine 25 Mg Tab PO 100 mg TID [facility] Administration Nicardipine HCl 25 mg/ Sodium 250 mls @ 25 mls/hr 03/12/20 16:00 03/13/20 05:04 Chloride IVPB 250 mls INF [facility] Administration Protocol 2.5 MG/HR Insulin Human Lispro 0 units 03/12/20 19:25 03/15/20 12:30 Humalog 300 Units/3 Ml Vial SC 3 unit .MILD SLIDING SCALE PRN Administration Mild Correctional Scale Insulin Human Lispro 0 units 03/12/20 19:25 03/14/20 20:30 Humalog 300 Units/3 Ml Vial SC 2 unit .BEDTIME SLIDING SC PRN Administration Bedtime Correctional Scale Morphine Sulfate 2 mg 03/10/20 10:20 03/12/20 14:26 Morphine 2 Mg/Ml Vial SLOW IVP 2 mg Q6H PRN Administration Severe Pain (7-10) Nitroglycerin 1 inch 03/10/20 12:00 03/15/20 11:26 Nitroglycerin 2% Ointment 1 Inch/1 Gm Packet TOP 1 inch 0400,1200,2000 [facility] Administration Simethicone 80 mg 03/13/20 20:24 03/13/20 20:48 Simethicone Chewable 80 Mg Tab PO 80 mg PCHS PRN Administration Gas Pain Spironolactone 12.5 mg 03/15/20 08:00 03/15/20 08:20 Spironolactone 25 Mg Tab PO 12.5 mg QAM-WM JAGUAR Administration - Exam General Appearance: awake alert, ill appearing Eye: PERRL, anicteric sclera ENT: normocephalic atraumatic, no oropharyngeal lesions, moist mucosa Neck: supple, symmetric, no JVD, no thyromegaly, no lymphadenopathy Heart: RRR, no murmur, no gallops, no rubs, normal peripheral pulses Respiratory: CTAB, no wheezes, no rales, no ronchi, normal chest expansion Gastrointestinal: soft, non-tender, non-distended, normal bowel sounds, no palpable masses Extremities: no cyanosis, no clubbing, no edema Neurological: cranial nerve grossly intact, normal sensation to touch Musculoskeletal: normal tone, normal strength, no muscle wasting Psychiatric: normal affect, normal behavior, A&O x 3 Hosp A/P (1) NSTEMI (non-ST elevated myocardial infarction) Code(s): I21.4 - NON-ST ELEVATION (NSTEMI) MYOCARDIAL INFARCTION Status: Acute (2) Hypertensive urgency Code(s): I16.0 - HYPERTENSIVE URGENCY Status: Acute (3) DM2 (diabetes mellitus, type 2) Status: Chronic Qualifiers: Diabetes mellitus retirement insulin use: without roasterman use Diabetes mellitus complication status: without complication Qualified Code(s): E11.9 - Type 2 diabetes mellitus without complications (4) HLD (hyperlipidemia) Code(s): E78.5 - HYPERLIPIDEMIA, UNSPECIFIED Status: Chronic Qualifiers: Hyperlipidemia type: mixed hyperlipidemia Qualified Code(s): E78.2 - Mixed hyperlipidemia (5) DEE (acute kidney injury) Code(s): N17.9 - ACUTE KIDNEY FAILURE, UNSPECIFIED Status: Acute - Plan old records reviewed/req, PT/OT, oncology social worker #1. Non-ST elevation [place]. Plan for left heart cath today. 03/13/20 He had some stents placed yesterday. Continue current care. 2. Coronary artery disease with prior stents. Continue routine home medications. 03/13/20. Continue home medicines. 3. Type 2 diabetes. Continue sliding scale coverage for now. 4. Dyslipidemia. Continue statins. 5. Acute kidney injury. We will keep an eye on this very close especially after his heart cath. #6. Accelerated hypertension. His blood pressure remains difficult to control. We will continue to optimize his medicines.
[2020-03-15] MEDS: Acetaminophen/Codeine 30-300mg Tablet PO PRN ×2 (20:18→23:50)
[2020-03-15] MEDS: Atorvastatin Calcium 40 MG TAB PO SCH (20:19)
[2020-03-15] MEDS: hydrALAZINE 20 MG/ML VIAL SLOW IVP PRN (21:43)
[2020-03-15] MEDS ORDERED: cloNIDine 0.1 MG TAB PO SCH (23:45)
[2020-03-16] MEDS: Nitroglycerin 2% Ointment 1 INCH/1 GM Packet TOP SCH ×2 (05:55→11:28)
[2020-03-16] MEDS: HumaLOG 300 UNITS/3 ML VIAL SC PRN ×2 (06:23→11:30)
[2020-03-16 08:10] LABS: #Eosinphils 0.1 thou/uL (0.0-0.7); #Lymphocytes 2.2 thou/uL (1.20-3.40); #Monocytes 0.6 thou/uL (0.11-0.59); %Basophils 0.6 % (0.0-1.0); %Lymphocytes 31.2 % (21.0-51.0); %Monocytes 8.8 % (0.0-10.0); %Neutrophils 57.4 % (42.0-75.0); Hemoglobin 10.3 g/dL (14.0-18.0); Mean Corpuscular HGB CONC 31.3 g/dL (32.0-36.0); Mean Corpuscular Hemoglobin 27.7 pg (27.0-31.0); Mean Corpuscular Volume 88.8 fL (78.0-98.0); Mean Platelet Volume 8.8 fL (7.4-10.4); Platelet Count 159 thou/uL (130-400); RBC Distribution Width 12.1 % (11.5-14.5); Red Blood Cell (RBC) Count 3.72 mill/uL (4.70-6.10)
[2020-03-16 08:33] LABS: Anion Gap 13 mmol/L (10-20); BUN (Urea Nitrogen) 23 mg/dL (8.4-25.7); Calc. Creatinine Clearance 54 mL/min (70-130); Calcium 8.6 mg/dL (7.8-10.44); Carbon Dioxide 22 mmol/L (23-31); Chloride 105 mmol/L (98-107); Estimated GFR-MDRD 53; Glucose 165 mg/dL (83-110); Potassium 4.1 mmol/L (3.5-5.1); Sodium 136 mmol/L (136-145)
[2020-03-16] MEDS: hydrALAZINE 25 MG TAB PO SCH ×2 (08:35→10:02)
[2020-03-16] MEDS: Famotidine 20 MG TAB PO SCH ×2 (08:35→10:06)
[2020-03-16] MEDS: Losartan 25 MG TAB PO SCH ×2 (08:36→10:06)
[2020-03-16] MEDS: Clopidogrel Bisulfate 75 MG TAB PO SCH ×2 (08:36→10:03)
[2020-03-16] MEDS: Carvedilol 6.25 MG TAB PO SCH ×2 (08:36→10:05)
[2020-03-16] MEDS: Aspirin Chewable 81 MG TAB PO SCH ×2 (08:36→10:05)
[2020-03-16] MEDS: DULoxetine 30 MG CAP PO SCH ×2 (08:36→10:06)
[2020-03-16] MEDS: Spironolactone 25 MG TAB PO SCH ×2 (08:36→10:05)
[2020-03-16] MEDS: Amlodipine 10 MG TAB PO SCH ×2 (08:36→10:02)
[2020-03-16 11:27] VITALS: BP 176/70; TEMP 98
--- NOTE | 2020-03-16 15:02 | PDOC.DS.DS ---
Provider - Provider Date of Admission: 03/10/20 11:49 Date of Discharge: 03/16/20 Admitting Provider: Dev Carrizales MD Consultations: Cardiology Primary Care Physician: FATOUMATA NIELSEN NP Course - Hospital Course Hospital Course: Mr. Abernathy is a 74-year-old patient whose medical history includes coronary artery disease with prior PCI, he is a diabetic, he has hypertension that appears to be difficult to control who was admitted to the hospital with chest pain and was found to have elevated troponin. He was diagnosed with non-STEMI a nd cardiology was asked to see him. He did have a heart cath and ended up with stent placement. Post stenting patient did relatively well but had very difficult to control blood pressure. We had several adjustments to his medicines and eventually this became a little bit more stable. Please refer to the medication reconciliation for further information. He was seen during this visit by Dr. Estrella from cardiology services. Over this course of his stay patient has done well and is being discharged home today. He is discharged to the care of his family. Resuscitation Status: 03/09/20 21:29 Resuscitation Status Routine Co-Sign Provider: Resuscitation Status: FULL: Full Resuscitation - Labs Lab Results: 03/16/20 07:50 03/16/20 07:50 Abnormal Lab Results - Last 48 hrs 03/16/20 07:50: Carbon Dioxide 22 L, Creatinine 1.58 H 03/16/20 07:50: RBC 3.72 L, Hgb 10.3 L, Hct 33.0 L, MCHC 31.3 L, Monocytes # 0.6 H - Physical Exam Vitals: Vital Signs (12 hours) Temp Pulse Resp BP BP BP Pulse Ox 03/16/20 11:21 98.0 F 53 L 18 176/70 H 99 03/16/20 07:24 98.3 F 53 L 18 176/86 H 97 03/16/20 03:10 98.4 F 66 20 166/75 H 96 Weight Weight 197 lb 9.6 oz Most Recent Monitor Data Heart Rate from ECG 65 NIBP 166/76 NIBP BP-Mean 106 Respiration from ECG 14 SpO2 96 Physical Exam: The patient was seen and examined on the day of discharge. Problem - Discharge Plan Assessment: I saw and evaluated patient today at the bedside and he is clinically stable for discharge. - Problem (1) NSTEMI (non-ST elevated myocardial infarction) Code(s): I21.4 - NON-ST ELEVATION (NSTEMI) MYOCARDIAL INFARCTION Status: Acute Plan: Patient received stents and has done well since stenting. (2) Hypertensive urgency Code(s): I16.0 - HYPERTENSIVE URGENCY Status: Acute Plan: Patient has had a rather very difficult to control blood pressure. His insistence on doing it is on way was not helpful. However we have been able to achieve a systolic blood pressure in the 160s. We have made a lot of changes to his home medications and we did send a prescription to his pharmacy. (3) DM2 (diabetes mellitus, type 2) Status: Chronic Qualifiers: Diabetes mellitus long-term insulin use: without long-term use Diabetes mellitus complication status: without complication Qualified Code(s): E11.9 - Type 2 diabetes mellitus without complications (4) HLD (hyperlipidemia) Code(s): E78.5 - HYPERLIPIDEMIA, UNSPECIFIED Status: Chronic Qualifiers: Hyperlipidemia type: mixed hyperlipidemia Qualified Code(s): E78.2 - Mixed hyperlipidemia (5) DEE (acute kidney injury) Code(s): N17.9 - ACUTE KIDNEY FAILURE, UNSPECIFIED Status: Acute Plan - Discharge Medications Prescriptions: Spironolactone [Aldactone] 25 mg PO BID-WM #60 tab hydrALAZINE [Apresoline] 100 mg PO TID #90 tab Aspirin Chewable [Aspirin Chewable Tablet] 81 mg PO DAILY #90 tab Atorvastatin Calcium [Lipitor] 40 mg PO HS #90 tab Clopidogrel Bisulfate [Plavix] 75 mg PO DAILY #90 tab Home Medications: Medication Instructions Recorded Confirmed Type Carvedilol [Coreg] 6.25 mg PO BID-WM #60 tab 09/18/18 03/10/20 Rx Apixaban [Eliquis] 5 mg PO BID 03/10/20 03/10/20 History DULoxetine HCl [Cymbalta] 30 mg PO BID 03/10/20 03/10/20 History Furosemide 20 mg PO DAILY 03/10/20 03/10/20 History Gabapentin 600 mg PO BID 03/10/20 03/10/20 History Guaifen/Dextromethorphan/PE 118 ml PO Q6H PRN 03/10/20 03/10/20 History [Tussin Cf Cough-Cold Liquid] Levemir Flexpen [Levemir FlexPen] 60 units SC Q12HR 03/10/20 03/10/20 History Aspirin Chewable [Aspirin Chewable 81 mg PO DAILY #90 tab 03/16/20 Rx Tablet] Atorvastatin Calcium [Lipitor] 40 mg PO HS #90 tab 03/16/20 Rx Carvedilol [Coreg] 6.25 mg PO BID-WM tab 03/16/20 Rx Clopidogrel Bisulfate [Plavix] 75 mg PO DAILY #90 tab 03/16/20 Rx Spironolactone [Aldactone] 25 mg PO BID-WM #60 tab 03/16/20 Rx hydrALAZINE [Apresoline] 100 mg PO TID #90 tab 03/16/20 Rx Allergies: tramadol Adverse Reaction (Verified 03/10/20 02:13) decreased urinary output - Discharge Instructions Activity:: Activity as Tolerated Nourishment:: Diabetic Diet, Heart Healthy Diet Therapies:: Home Health, Not Applicable - Follow up Plan Referrals: Cardiac Rehab - [facility] [Outside] - 7 Days (Your doctor has ordered outpatient cardiac rehab for you to begin within 1-2 weeks after you go home from the [facility]. The location nearest to you is the [facility]. We will call you in 3-5 days to get you scheduled for your evaluation. If you do not receive a call, please reach out to us at [phone] and request an appointment.) FATOUMATA NIELSEN NP [Primary Care Provider] - 03/20/20 12:30 pm (Please be sure to keep this appointment ) J Luis Estrella MD [Active] - 7 Days (Please call the office to schedule an appointment within 7 days.) Disposition: HOME Quality - Care Measures CORE MEASURES:: AMI - Stroke/TIA Did you prescribe antithrombotic therapy?: Yes Did you prescribe anticoagulant for A Fib/Flutter?: No Specify reason for no DC anticoagulant: Treatment not indicated Did you prescribe a statin medication?: Yes
--- NOTE | 2020-03-19 02:55 | PQF ---
CLINICAL DOCUMENTATION CLARIFICATION FORM: Dear : Angelique Amos Date / Time: 03/19/2020 0254 Please exercise your independent, professional judgment in responding to the clarification form. Clinical indicators are provided on the bottom of this form for your review Based on your clinical judgment, can you please clarify the type of patientfs NSTEMI? Please check appropriate box(es): [x ] Type 1 NM (NSTEMI) [ ] Type 2 NM (T2MI) secondary to hypertension urgency [ ] Type 2 NM (T2MI) secondary to other condition, please specify: [ ] Other diagnosis, please specify [ ] Unable to determine Physician Signature: Date/Time: For continuity of documentation, please document condition throughout progress notes and discharge summary. Thank You. To be completed by CDI/Coding staff for physician review: Present Clinical Indicators - Signs / Symptoms / Labs Results and Location in Medical Record [X] BNP 323.8, Troponin I 0.202, 0.281, 0.396 Laboratory 03/09 [X] BP 185/88, Pulse 67, Resp 18, Temp 97.8 Vital signs 03/09 [X] EKG, First degree block, Nonspecific T wave abnormality, slightly prolonged QTC, ST segments normal axis is normal ED notes p8 03/10 [X] Presents with persistent chest pain that has been occurring with exertion over the last 2-3days H&P p1 03/09 Card PA-C [X] BP may be elevated 2/2 to pain or heart being strained secondary to uncontrolled BP H&P p6 03/09 Card PA-C [X] NSTEMI HPN p4 03/10 Dr Amos [X] HTN urgency HPN p4 03/10 Dr Amos Present Risk Factors Results and Location in Medical Record [X] 74 year-old Male H&P p1 03/09 Card PA-C [X] CAD s/p stent H&P p1 03/09 Card PA-C [X] Old NM H&P p1 03/09 Card PA-C [X] Marijuana abuse H&P p2 03/09 Card PA-C [X] HTN H&P p2 03/09 Card PA-C [X] DM H&P p2 03/09 Card PA-C [X] HLD ED Notes 03/09 [X] High Cholesterol ED Notes 03/09 [X] CKD ED Notes 03/09 Present Treatments Results and Location in Medical Record [X] IVF NS 1L JUN 28 [X] Nitro-Bid 2% Ointment JUN 28 [X] Nitrostat 0.4 mg SL JUN 28 [X] IV Morphine 2 mg JUN 28 [X] IV Apresoline 20 mg JUN 28 [X] Catapres 0.1 mg oral JUN 28 [X] Aspirin 325 mg oral JUN 28 [X] LHC with Stent placement Cardiac procedure 03/12 Dr Estrella [X] Cardio consult Consult Dr Munroe 03/11 CDS/Heater Room Helper Signature: Kailey Crespo Phone #: ext [phone] Date/Time: 03/19/2020 0254 This is a permanent part of the Medical Record [facility]
--- NOTE | 2020-03-20 19:43 | EKG ---
Test Reason : Blood Pressure : / mmHG Vent. Rate : 061 BPM Atrial Rate : 088 BPM P-R Int : 000 ms QRS Dur : 104 ms QT Int : 480 ms P-R-T Axes : 065 -12 068 degrees QTc Int : 483 ms Sinus rhythm with 2nd degree A-V block (Mobitz I) Left ventricular hypertrophy with repolarization abnormality Prolonged QT Abnormal ECG When compared with ECG of 10-MAR-2020 02:29, (Unconfirmed) Sinus rhythm is now with 2nd degree A-V block (Mobitz I) Non-specific change in ST segment in Lateral leads Nonspecific T wave abnormality no longer evident in Inferior leads Confirmed by KARLA ALEXANDRE (2) on 03/20/2020 7:43:45 PM Referred By: DEVEN Confirmed By:KARLA ALEXANDRE
--- NOTE | 2020-03-20 19:44 | EKG ---
Test Reason : Blood Pressure : / mmHG Vent. Rate : 067 BPM Atrial Rate : 075 BPM P-R Int : 000 ms QRS Dur : 096 ms QT Int : 464 ms P-R-T Axes : 030 -15 024 degrees QTc Int : 490 ms Poor data quality, interpretation may be adversely affected Sinus rhythm with 2nd degree A-V block (Mobitz I) Left ventricular hypertrophy with repolarization abnormality Prolonged QT Abnormal ECG When compared with ECG of 12-MAR-2020 15:08, (Unconfirmed) Nonspecific T wave abnormality now evident in Inferior leads Confirmed by KARLA ALEXANDRE (2) on 03/20/2020 7:43:55 PM Referred By: DEVEN Confirmed By:KARLA ALEXANDRE
== END 2020-03-16 14:03 | disposition home or self-care (01) | DRG 247 ==
LOC: ERS 16:07 → 2NO 19:28 → OBSVTOIN 03-10 11:49 → CCU 03-12 17:34 → 2NO 03-14 18:22
PROVIDERS: ADMIT Internal Medicine; ATTEND Hospitalist
PROC: 027034Z Dilation of Coronary Artery, One Artery with Drug-eluting Intraluminal Device, Percutaneous Approach (ICD-10-PCS; principal; 2020-03-12)
PROC: 4A023N7 Measurement of Cardiac Sampling and Pressure, Left Heart, Percutaneous Approach (ICD-10-PCS; 2020-03-12)
PROC: B2111ZZ Fluoroscopy of Multiple Coronary Arteries using Low Osmolar Contrast (ICD-10-PCS; 2020-03-12)
PROC: B2151ZZ Fluoroscopy of Left Heart using Low Osmolar Contrast (ICD-10-PCS; 2020-03-12)
DX: I21.4 Non-ST elevation (NSTEMI) myocardial infarction (principal); N17.9 Acute kidney failure, unspecified; Z20.828 Contact with and (suspected) exposure to other viral communicable diseases; I16.0 Hypertensive urgency; E78.2 Mixed hyperlipidemia; I25.10 Atherosclerotic heart disease of native coronary artery without angina pectoris; I08.1 Rheumatic disorders of both mitral and tricuspid valves; K59.09 Other constipation; F32.9 Major depressive disorder, single episode, unspecified; N18.30 Chronic kidney disease, stage 3 unspecified; E11.22 Type 2 diabetes mellitus with diabetic chronic kidney disease; J44.9 Chronic obstructive pulmonary disease, unspecified; F12.10 Cannabis abuse, uncomplicated; I12.9 Hypertensive chronic kidney disease with stage 1 through stage 4 chronic kidney disease, or unspecified chronic kidney disease; I44.1 Atrioventricular block, second degree; Z28.21 Immunization not carried out because of patient refusal; Z95.5 Presence of coronary angioplasty implant and graft; I25.2 Old myocardial infarction; Z86.73 Personal history of transient ischemic attack (TIA), and cerebral infarction without residual deficits; Z79.899 Other long term (current) drug therapy; Z79.82 Long term (current) use of aspirin; Z79.4 Long term (current) use of insulin; Z79.01 Long term (current) use of anticoagulants
CPT/HCPCS: 36415; 36416; 71045; 74018; 76942; 80048; 80053; 80061; 80307; 82533; 82553; 83690; 83735; 83835; 83880; 84443; 84484; 85014; 85018; 85025; 85049; 85347; 85379; 85730; 87635; 92928; 93005; 93010; 93306; 93454; 93458; 94760; 96374; 96375; 96376; 99152; C1874; C9600; G0378; J0153; J0360; J1644; J1650; J2250; J2270; J2405; J3010; J7050; Q9967; U0003

== ENCOUNTER 2020-03-21 12:57 | Inpatient (IN) | payer MEDICARE, MEDICAID ==
[2020-03-21 13:39] LABS: PTT 28.2 sec (22.9-36.1); Prothrombin Time 13.6 sec (12.0-14.7)
--- NOTE | 2020-03-21 13:50 | RAD ---
PORTABLE CHEST: 03/21/20 HISTORY: Chest pain. Second degree heart block. COMPARISON: 03/09/20. Borderline cardiomegaly is stable. Lung antonio are clear. No infiltrate or vascular congestion. No si gnificant effusion. No interval change. IMPRESSION: No acute findings. POS: AGW
[2020-03-21 13:52] LABS: ALT (SGPT) 59 U/L (8-55); AST (SGOT) 26 U/L (5-34); Albumin 3.3 g/dL (3.4-4.8); Alkaline Phosphatase 90 U/L (40-110); Anion Gap 12 mmol/L (10-20); BUN (Urea Nitrogen) 29 mg/dL (8.4-25.7); Bilirubin, Total 0.5 mg/dL (0.2-1.2); Calc. Creatinine Clearance 0 mL/min (70-130); Calcium 7.8 mg/dL (7.8-10.44); Carbon Dioxide 23 mmol/L (23-31); Chloride 105 mmol/L (98-107); Globulin 2.6 g/dL (2.4-3.5); Glucose 205 mg/dL (83-110); Potassium 4.4 mmol/L (3.5-5.1); Protein, Total 5.9 g/dL (5.8-8.1); Sodium 136 mmol/L (136-145)
[2020-03-21 13:57] LABS: CKMB 0.6 ng/mL (0-6.6)
[2020-03-21] MEDS ORDERED: Bisacodyl 10 MG SUPP PR PRN (15:14)
[2020-03-21] MEDS ORDERED: HumaLOG 300 UNITS/3 ML VIAL SC PRN (15:14)
[2020-03-21] MEDS ORDERED: Guaifenesin DM 100-10/5 ML UDCUP PO PRN (15:14)
[2020-03-21] MEDS ORDERED: Dextrose 5% in Water 1,000 ML IV PRN (15:14)
[2020-03-21] MEDS ORDERED: Senokot S 8.6-50 MG TAB PO PRN (15:14)
[2020-03-21] MEDS ORDERED: Ondansetron PF 4 MG/2 ML Vial IVP PRN (15:14)
--- NOTE | 2020-03-21 16:02 | HP ---
REASON FOR ADMISSION: Bradycardia, likely complete heart block versus Mobitz type 2. HISTORY OF PRESENTING ILLNESS: The patient gives history of having a regular followup to see his primary care physician, Dr. Naa Salgado. She found his heart rate to be in the 30s. The patient was asked to come to the emergency room. He has significant history of having had a stent placed and discharged on the . The patient had severe 1-vessel disease and had successful stent placed to circumflex. No complaints of cough or expectoration. No complaints of fever. The patient ambulates with a cane occasionally, but can ambulate without it. He states he has chronic edema in the legs. PAST MEDICAL AND SURGICAL HISTORY: History of hypertension, stent placed to proximal circumflex, dyslipidemia, umbilical hernia, history of chronic bradycardia, diabetes mellitus type 2, history of TIA, depression, left hand surgery due to fracture, left knee surgery, sinus surgery, pelvic bone surgery. PERSONAL HISTORY: Does not abuse alcohol or drugs. No history of smoking. Lives alone. Ambulates occasionally with a walker, but can walk without it. FAMILY HISTORY: Both parents in their 70s. Mother had history of NH. Father had history of heart failure. CURRENT MEDICATIONS: 1. Cymbalta 30 mg twice daily. 2. Eliquis 5 mg twice daily. 3. Furosemide 20 mg daily. 4. Gabapentin 600 mg p.o. twice daily. 5. Levemir 60 units subcu twice daily. 6. Spironolactone 25 mg twice daily. 7. Hydralazine 100 mg p.o. 3 times daily. 8. Aspirin 81 mg p.o. daily. 9. Carvedilol 6.25 mg twice daily. 10. Hydralazine 100 mg p.o. 3 times daily. 11. Atorvastatin 40 mg p.o. at bedtime. 12. Plavix 75 mg p.o. daily. ALLERGIES: ALLERGIC TO ULTRAM. CODE STATUS: Full. Power of commercial litigation attorney is his niece, Renetta Jasso. REVIEW OF SYSTEMS: CONSTITUTIONAL: Negative for weight loss or gain, ability to conduct usual activities. SKIN: Negative for rash, itching. EYES: Negative for double vision, pain. ENT/MOUTH: Negative for nose bleeding, neck stiffness, pain, tenderness. CARDIOVASCULAR: Negative for palpitations, dyspnea on exertion, orthopnea. RESPIRATORY: Negative for shortness of breath, wheezing, cough, hemoptysis, fever or night sweats. GASTROINTESTINAL: Negative for poor appetite, abdominal pain, heartburn, nausea, vomiting, constipation, or diarrhea. GENITOURINARY: Negative for urgency, frequency, dysuria, nocturia. MUSCULOSKELETAL: Negative for pain, swelling. NEUROLOGIC/PSYCHIATRIC: Negative for anxiety, depression. ALLERGY/IMMUNOLOGIC: Negative for skin rash, bleeding tendency. PHYSICAL EXAMINATION: GENERAL: The patient is a 74-year-old male, who is currently not in any acute distress. VITAL SIGNS: Blood pressure 190/96, pulse 36 per minute, respiratory rate 18 per minute, temperature 99.1 degrees Fahrenheit, and saturating 100% on room air. NECK: Supple. No elevated JVD. EYES: Extraocular muscles intact. Pupils reacting to light. ORAL CAVITY: Mucous membranes are moist. No exudates or congestion. CARDIOVASCULAR SYSTEM: S1 and S2 heard. Bradycardic. RESPIRATORY SYSTEM: Air entry 1+ bilateral. No rales or rhonchi. ABDOMEN: Soft. Bowel sounds heard. No tenderness, rigidity, or guarding. EXTREMITIES: There is 1+ peripheral edema. No ischemic ulcers or gangrene. Peripheral pulses are 1+ bilateral. CENTRAL NERVOUS SYSTEM: No gross focal motor deficits noted. The patient is alert, awake, oriented well. PSYCHIATRIC SYSTEM: The patient's mood is euthymic. No hallucinations or delusions. LABORATORY DATA: BUN 29, creatinine 1.8, serum bicarb 23. PT, INR, PTT within normal limits. Serum glucose 205, albumin is 3.3. Chest x-ray done shows no acute cardiopulmonary process. EKG done shows likely type 3 heart block/complete heart block with rates up to 36 to 41 beats per minute. Signs of LVH seen on the EKG. CLINICAL IMPRESSION AND PLAN: The patient will be admitted to telemetry for severe bradycardia. The patient is also on carvedilol and had [id number] hypertension during his last hospitalization here. Dr. Plata has been consulted from ER, and we will keep him n.p.o. after midnight. Also, his carvedilol will be held to see if his heart rate will rebound. The patient apparently has history of chronic bradycardia and it is unclear what his baseline heart rate is. We will continue his aspirin, Plavix for the recently placed stent along with Lipitor, hydralazine, gabapentin, Levemir, and Cymbalta will be continued. We will continue to closely monitor him on telemetry. The patient is a full code. This was confirmed with the patient at bedside. Job ID: [id number] MTDD
[2020-03-21 17:18] LABS: Troponin I 0.072 ng/mL (< 0.028)
[2020-03-21] MEDS ORDERED: hydrALAZINE 25 MG TAB ONE (18:20)
[2020-03-21] MEDS: hydrALAZINE 25 MG TAB PO SCH (18:27)
[2020-03-21 20:47] LABS: Troponin I 0.078 ng/mL (< 0.028)
[2020-03-21] MEDS ORDERED: Non-Formulary Item 1 EACH (Levemir Flexpen [Levemir Flexpen] 100 UNITS/ML Pen) SC SCH (21:00)
[2020-03-21] MEDS ORDERED: Famotidine 20 MG TAB ONE ×2 (21:47→21:51)
[2020-03-21] MEDS ORDERED: Acetaminophen 325 MG TAB ONE (21:47)
[2020-03-21] MEDS: Acetaminophen 325 MG TAB PO PRN (21:48)
[2020-03-21] MEDS: Famotidine 20 MG TAB PO SCH (21:49)
[2020-03-21] MEDS: DULoxetine 30 MG CAP PO SCH (22:23)
[2020-03-21] MEDS: Gabapentin 300 MG CAP PO SCH (22:23)
[2020-03-21] MEDS: Atorvastatin Calcium 40 MG TAB PO SCH (22:23)
[2020-03-21] MEDS: Insulin Glargine 60 UNITS in Pre-Filled Syringe 1 EACH SC SCH (22:24)
[2020-03-21] MEDS ORDERED: hydrALAZINE 20 MG/ML VIAL SLOW IVP SCH (23:59)
--- NOTE | 2020-03-22 00:43 | CON ---
DATE OF CONSULTATION: 03/21/2020 INDICATION FOR CONSULTATION: This is a 74-year-old gentleman who recently was admitted to the hospital last Thursday before where he was found to have coronary artery disease. He underwent angioplasty and stent placement by Dr. Estrella. He was implanted with 3.0 x 20 mm Synergy stent to the left circumflex. He was doing relatively well after he was discharged. He was then seen by the primary care physician today, was noted to be bradycardic, was advised to seek consultation in the emergency room. He was taken to the emergency room where he was found to have heart rates in in the 40s and actually dipped down to the 30s. He was discharged on a beta elroy as well as dual anti-platelet coagulation. At this time, he said he was asymptomatic. He did not have any significant symptoms, but in the emergency room EKG tracings do show a second-degree heart block type 1, [place] and at times looks more like a type 2 second-degree heart block. At this time, he remains comfortable. Blood pressure is significantly elevated on the 200 range and heart rate remains in the 40s, unless he is up and more active by sitting up in the exam room and then the heart rate will go in the 50s and then does appear to be sinus. There were no EKG changes to indicate ischemia. At this time, he is relatively stable, he will need to undergo further evaluation. He will be admitted to the hospital. We will continue to monitor on telemetry. PAST MEDICAL HISTORY: Significant for the coronary artery disease. He also has a history of hypertension, dyslipidemia. He had umbilical hernia. He has a history of type 2 diabetes, history of TIA in the past, depression, left hand surgery. He has had a fracture. He has had left knee surgery, sinus surgery, pelvic bone surgery. SOCIAL HISTORY: He has no history of alcohol or tobacco abuse. He lives alone. He walks with a walker. FAMILY HISTORY: His mother had a history of myocardial infarction. Father had a history of heart failure. MEDICATIONS: On discharge: 1. He was taking Aldactone 25 mg b.i.d. 2. Hydralazine 100 mg t.i.d. 3. Aspirin 81 mg daily. 4. Coreg 6.25 mg b.i.d. 5. Atorvastatin 40 mg q.p.m. 6. Plavix 75 mg daily. 7. Gabapentin 600 mg b.i.d. 8. Cymbalta 30 mg b.i.d. 9. Eliquis 5 mg b.i.d. 10. Lasix 20 mg daily. 11. He also was taking guaifenesin/dextromethorphan for cough suppressant. 12. Levemir 60 mg q.12 hours for diabetes. 13. I believe he had stopped his aspirin and he was taking Plavix instead of the aspirin. It appears that he was taking Plavix as well as Eliquis for his dual anti-platelet regimen. REVIEW OF SYSTEMS: A 12-point review of system is unremarkable except what is noted in the history of present illness. PHYSICAL EXAMINATION: GENERAL: Reveals an elderly gentleman, who is in no acute distress at this time. His blood pressure is in the 200 range systolically, heart rates in the 40s. HEENT: Unremarkable. Carotid pulses are present without any bruits. CHEST: Clear to auscultation. CARDIOVASCULAR: Somewhat difficult to auscultate due to the bradycardia, but no gross murmurs were noted. ABDOMEN: Shows obesity with positive bowel sounds. There is no organomegaly or masses noted. I cannot palpate any tenderness. EXTREMITIES: Show no clubbing, cyanosis, or edema. NEUROLOGIC: He appears to be intact. No gross focal motor deficits were noted. SKIN: Warm and dry. LABORATORY DATA: Shows sodium is 136, potassium 4.4, BUN was 29 with a creatinine of 1.89. Blood sugar was 205. Troponin I was 0.08, decreased down to 0.072, most likely this represents a previous angioplasty stent placement. His creatinine is slightly elevated, but however, this is pretty much to normal for this patient. He has some mild chronic renal insufficiency. EKG is noted above. H and H was not obtained, but on 03/16, hemoglobin was 10.3 with hematocrit of 33, WBC was 7. IMPRESSION: 1. Asymptomatic bradycardia in an elderly gentleman, who is status post angioplasty and stent placement, who also is on beta blockers. We will need to decrease or hold the beta blockers at this time to see if the heart rate improves, most likely he will need to undergo pacemaker insertion due to significant bradycardia. We will monitor him tonight and see how he is tomorrow morning. 2. Coronary artery disease. This appears to be relatively stable. He is status post angioplasty and stent placement. We will continue on dual anti-platelet therapy since it appears that he has had Plavix, which was instead of the aspirin. We will continue the Plavix and Eliquis in this patient. It appears that he was just taken off the aspirin. He is on Eliquis for oral anticoagulation as well as Plavix for anti-platelet medications. It appears that his aspirin was stopped on his last admission, also lisinopril was stopped and he is taking hydralazine. 3. Hypertension. We will continue his antihypertensive medications at this time. 4. Dyslipidemia. We will continue the atorvastatin. We will continue to follow the patient with you. We will determine whether or not he will need to undergo pacemaker insertion after he has been off the beta blockers. Job ID: [id number] [id number]
[2020-03-22 03:13] LABS: SARS-CoV-2 MS2 Positive; SARS-CoV-2 N Gene Negative; SARS-CoV-2 S Gene Negative; SARS-CoV-2 by NAA Not Detected (NotDetected); SARS-CoV-2 orf1ab Negative
[2020-03-22 03:58] LABS: #Basophils 0.1 thou/uL (0.0-0.2); #Eosinphils 0.1 thou/uL (0.0-0.7); #Lymphocytes 2.6 thou/uL (1.20-3.40); #Monocytes 0.8 thou/uL (0.11-0.59); %Eosinophils 1.1 % (0.0-10.0); %Lymphocytes 30.1 % (21.0-51.0); %Monocytes 9.3 % (0.0-10.0); %Neutrophils 58.5 % (42.0-75.0); Hemoglobin 10.5 g/dL (14.0-18.0); Mean Corpuscular HGB CONC 31.9 g/dL (32.0-36.0); Mean Corpuscular Hemoglobin 27.6 pg (27.0-31.0); Mean Corpuscular Volume 86.7 fL (78.0-98.0); Mean Platelet Volume 8.8 fL (7.4-10.4); Platelet Count 224 thou/uL (130-400); RBC Distribution Width 11.9 % (11.5-14.5); Red Blood Cell (RBC) Count 3.81 mill/uL (4.70-6.10); White Blood Cell (WBC) Count 8.5 thou/uL (4.8-10.8)
[2020-03-22 04:19] LABS: Anion Gap 12 mmol/L (10-20); BUN (Urea Nitrogen) 25 mg/dL (8.4-25.7); Calc. Creatinine Clearance 51 mL/min (70-130); Calcium 7.9 mg/dL (7.8-10.44); Carbon Dioxide 21 mmol/L (23-31); Chloride 107 mmol/L (98-107); Glucose 174 mg/dL (83-110); Sodium 136 mmol/L (136-145)
[2020-03-22] MEDS ORDERED: hydrALAZINE 20 MG/ML VIAL SLOW IVP PRN (05:38)
[2020-03-22] MEDS: Famotidine 20 MG TAB PO SCH (08:20)
[2020-03-22] MEDS: Clopidogrel Bisulfate 75 MG TAB PO SCH (08:20)
[2020-03-22] MEDS: hydrALAZINE 25 MG TAB PO SCH ×3 (08:20→19:53)
[2020-03-22] MEDS: DULoxetine 30 MG CAP PO SCH ×2 (08:20→19:54)
[2020-03-22] MEDS: Aspirin Chewable 81 MG TAB PO SCH (08:20)
[2020-03-22] MEDS: Gabapentin 300 MG CAP PO SCH ×2 (08:21→19:52)
[2020-03-22] MEDS: Amlodipine 5 MG TAB PO SCH ×2 (08:27→19:53)
[2020-03-22] MEDS: Losartan 25 MG TAB PO SCH (08:27)
[2020-03-22] MEDS: Furosemide 40 MG TAB PO SCH (08:28)
[2020-03-22] MEDS: Isosorbide Dinitrate 20 MG TAB PO SCH ×3 (08:28→19:53)
[2020-03-22] MEDS ORDERED: Enoxaparin Sodium 40 MG/0.4 ML SYRINGE SC SCH (09:00)
[2020-03-22] MEDS ORDERED: Losartan 25 MG TAB PO SCH (09:00)
--- NOTE | 2020-03-22 09:16 | CON ---
DATE OF CONSULTATION: 03/22/2020 SUBJECTIVE: Mr. Abernathy is a very pleasant 74-year-old gentleman who recently underwent a successful stent placement. He has had difficulty with blood pressure. He was discharged recently with appropriate blood pressure management. Beta-elroy therapy was avoided due to transient 2:1 block. He recently presented with increased shortness of breath and again 2:1 block. Heart rate was in the 40s. OBJECTIVE: GENERAL: Patient is a pleasant 74-year-old gentleman who is in no acute distress. The patient appears their stated age. VITAL SIGNS: Blood pressure 186/81, pulse 45, respirations 20. NEUROLOGIC: The patient is alert and oriented x3 with no focal neurologic deficits. HEENT: Sclerae without icterus. Mouth has moist mucous membranes with normal pallor. NECK: No JVD. Carotid upstroke brisk. No bruits bilaterally. LUNGS: Clear to auscultation with unlabored respirations. BACK: No scoliosis or kyphosis. CARDIAC: Regular rate and rhythm with normal S1 and S2. No S3 or S4 noted. No significant rubs, murmurs, thrills, or gallops noted throughout the precordium. PMI is not displaced. There is no parasternal heave. ABDOMEN: Soft, nontender, nondistended. No peritoneal signs present. No hepatosplenomegaly. No abnormal striae. EXTREMITIES: 2+ femoral and 2+ dorsalis pedis pulses. No cyanosis, clubbing, or edema. SKIN: No gross abnormalities. EKG: Shows 2:1 block. IMPRESSION: 1. Coronary artery disease. 2. 2:1 block. 3. Bradycardia. 4. Hypertension. RECOMMENDATIONS: 1. I have restarted amlodipine 5 mg one p.o. b.i.d. 2. The patient would likely benefit from beta-elroy therapy given 2:1 block in addition to need for medications to manage blood pressure, that would decrease heart rate even further, and include beta-elroy therapy. Risks and benefits of pacemaker were discussed with Mr. Abernathy. The patient will have further discussion with Dr. Daniel Plata who will proceed with the pacemaker implantation. Job ID: [id number]
[2020-03-22] MEDS: Insulin Glargine 60 UNITS in Pre-Filled Syringe 1 EACH SC SCH ×2 (11:37→21:09)
--- NOTE | 2020-03-22 17:17 | PDOC.HOSPP ---
- Subjective Encounter Date: 03/22/20 Encounter Time: 08:20 Subjective: no chest pain or palp or sob is ambulating in room - Objective Vital Signs & Weight: Vital Signs (12 hours) Temp Pulse Pulse Pulse Resp BP BP 03/22/20 11:22 97.3 F L 75 13 03/22/20 09:06 80 134/64 145/66 H 03/22/20 08:40 03/22/20 07:38 97.6 F 41 L 16 03/22/20 07:00 43 L 186/81 H BP Pulse Ox 03/22/20 11:22 143/67 H 97 03/22/20 09:06 03/22/20 08:40 98 03/22/20 07:38 189/82 H 98 03/22/20 07:00 Weight Weight 197 lb I&O: 03/21/20 03/22/20 03/23/20 06:59 06:59 06:59 Intake Total 240 Balance 240 Result Diagrams: 03/22/20 03:35 03/22/20 03:35 Additional Labs: Accuchecks 03/22/20 03/22/20 03/21/20 10:53 05:41 22:46 POC Glucose 112 H 123 H 110 H 03/21/20 22:16 POC Glucose 115 H Hospitalist ROS - Medication Medications: Active Medications Generic Name Dose Route Start Last Admin Trade Name Freq PRN Reason Stop Dose Admin Acetaminophen 650 mg 03/21/20 15:14 03/21/20 21:48 Acetaminophen 325 Mg Tab PO 650 mg Q4H PRN Administration Headache/Fever/Mild Pain (1-3) Amlodipine Besylate 5 mg 03/22/20 09:00 03/22/20 08:27 Amlodipine 5 Mg Tab PO 5 mg BID JAGUAR Administration Aspirin 81 mg 03/22/20 09:00 03/22/20 08:20 Aspirin Chewable 81 Mg Tab PO 81 mg DAILY JAGUAR Administration Atorvastatin Calcium 40 mg 03/21/20 21:00 03/21/20 22:23 Atorvastatin Calcium 40 Mg Tab PO 40 mg HS JAGUAR Administration Clopidogrel Bisulfate 75 mg 03/22/20 09:00 03/22/20 08:20 Clopidogrel Bisulfate 75 Mg Tab PO 75 mg DAILY JAGUAR Administration Duloxetine HCl 30 mg 03/21/20 21:00 03/22/20 08:20 Duloxetine 30 Mg Cap PO 30 mg BID JAGUAR Administration Enoxaparin Sodium 40 mg 03/22/20 09:00 03/22/20 08:20 Enoxaparin Sodium 40 Mg/0.4 Ml Syringe SC 40 mg 0900 JAGUAR Administration Furosemide 40 mg 03/22/20 09:00 03/22/20 08:28 Furosemide 40 Mg Tab PO 40 mg DAILY JAGUAR Administration Gabapentin 600 mg 03/21/20 21:00 03/22/20 08:21 Gabapentin 300 Mg Cap PO 600 mg BID JAGUAR Administration Hydralazine HCl 100 mg 03/21/20 21:00 03/22/20 14:35 Hydralazine 25 Mg Tab PO 100 mg TID JAGUAR Administration Hydralazine HCl 10 mg 03/22/20 05:38 03/22/20 05:53 Hydralazine 20 Mg/Ml Vial SLOW IVP 10 mg Q6H PRN Administration SBP>150 Insulin Glargine 60 units/ 0.6 mls @ 0 mls/hr 03/21/20 21:00 03/22/20 11:37 Miscellaneous Medication SC Not Given BID JAGUAR As Directed Isosorbide Dinitrate 20 mg 03/22/20 09:00 03/22/20 14:35 Isosorbide Dinitrate 20 Mg Tab PO 20 mg TID JAGUAR Administration Losartan Potassium 100 mg 03/22/20 09:00 03/22/20 08:27 Losartan 25 Mg Tab PO 100 mg DAILY JAGUAR Administration Sodium Chloride 10 ml 03/22/20 09:00 03/22/20 11:37 Flush - Normal Saline 10 Ml Syringe IVF 10 ml Q12HR JAGUAR Administration - Exam General Appearance: awake alert Eye: PERRL, anicteric sclera ENT: no oropharyngeal lesions, moist mucosa Neck: supple, no JVD Heart: RRR, no murmur Respiratory: no wheezes, no rales Gastrointestinal: soft, non-tender, non-distended, normal bowel sounds Extremities: no cyanosis, 1+ LE edema Neurological: cranial nerve grossly intact, no focal deficits Psychiatric: normal affect, A&O x 3 Hosp A/P (1) Mobitz (type) II atrioventricular block Code(s): I44.1 - ATRIOVENTRICULAR BLOCK, SECOND DEGREE Status: Acute (2) CAD (coronary artery disease) Code(s): I25.10 - ATHSCL HEART DISEASE OF [place] CORONARY ARTERY W/O ANG PCTRS Status: Chronic Qualifiers: Coronary Disease-Associated Artery/Lesion type: [place] artery [place] vs. transplanted heart: [place] heart Associated angina: without angina Qualified Code(s): I25.10 - Atherosclerotic heart disease of [place] coronary artery without angina pectoris (3) CKD (chronic kidney disease) stage 3, GFR 30-59 ml/min Code(s): N18.3 - CHRONIC KIDNEY DISEASE, STAGE 3 (MODERATE) * DO NOT USE * Status: Chronic (4) DM2 (diabetes mellitus, type 2) Status: Chronic Qualifiers: Diabetes mellitus marine oil terminal superintendent insulin use: with detention use Diabetes mellitus complication status: with kidney complications Diabetes mellitus complication detail: with chronic kidney disease Chronic kidney disease stage: stage 3 (moderate) (5) HLD (hyperlipidemia) Code(s): E78.5 - HYPERLIPIDEMIA, UNSPECIFIED Status: Chronic Qualifiers: (6) HTN (hypertension) Code(s): I10 - ESSENTIAL (PRIMARY) HYPERTENSION Status: Chronic Qualifiers: Hypertension type: essential hypertension Qualified Code(s): I10 - Essential (primary) hypertension - Plan is on aspirin, plavix, lipitor, hydralazine, isordil, cozaar, lasix, lantus and cymbalta heart rate still in the 40-46/min range will likely need pace maker hemostable
[2020-03-22] MEDS: HumaLOG 300 UNITS/3 ML VIAL SC PRN (18:47)
[2020-03-22] MEDS: Acetaminophen 325 MG TAB PO PRN (19:52)
[2020-03-22] MEDS: Atorvastatin Calcium 40 MG TAB PO SCH (19:53)
[2020-03-23] MEDS ORDERED: CEFAZOLIN 2 GM in Premix Bag 1 BAG IVPB SCH (02:45)
[2020-03-23] MEDS: Gabapentin 300 MG CAP PO SCH ×2 (08:48→20:06)
[2020-03-23] MEDS: Aspirin Chewable 81 MG TAB PO SCH (08:49)
[2020-03-23] MEDS: Famotidine 20 MG TAB PO SCH (08:49)
[2020-03-23] MEDS: Furosemide 40 MG TAB PO SCH (08:50)
[2020-03-23] MEDS: hydrALAZINE 25 MG TAB PO SCH ×3 (08:50→20:07)
[2020-03-23] MEDS: Amlodipine 5 MG TAB PO SCH ×2 (08:50→20:07)
[2020-03-23] MEDS: Losartan 25 MG TAB PO SCH (08:50)
[2020-03-23] MEDS: DULoxetine 30 MG CAP PO SCH ×2 (08:51→20:07)
[2020-03-23] MEDS: Clopidogrel Bisulfate 75 MG TAB PO SCH ×2 (08:51→08:52)
[2020-03-23] MEDS: Isosorbide Dinitrate 20 MG TAB PO SCH ×3 (08:51→20:07)
[2020-03-23] MEDS ORDERED: CEFAZOLIN 1 GM VIAL ONE (09:32)
[2020-03-23] MEDS ORDERED: Gentamicin 80 MG/2 ML VIAL ONE ×2 (09:32→10:25)
--- NOTE | 2020-03-23 10:13 | PDOC.HOSPP ---
- Subjective Encounter Date: 03/23/20 Encounter Time: 09:15 Subjective: no chest pain or dizziness is ambulating in room, npo for pcm placement today - Objective Vital Signs & Weight: Vital Signs (12 hours) Temp Pulse Resp BP Pulse Ox 03/23/20 03:30 97.4 F L 42 L 16 139/65 96 Weight Weight 197 lb I&O: 03/22/20 03/23/20 03/24/20 06:59 06:59 06:59 Intake Total 240 940 Balance 240 940 Result Diagrams: 03/22/20 03:35 03/22/20 03:35 Additional Labs: Accuchecks 03/22/20 03/22/20 20:27 10:53 POC Glucose 278 H 112 H Hospitalist ROS - Medication Medications: Active Medications Generic Name Dose Route Start Last Admin Trade Name Freq PRN Reason Stop Dose Admin Acetaminophen 650 mg 03/21/20 15:14 03/22/20 19:52 Acetaminophen 325 Mg Tab PO 650 mg Q4H PRN Administration Headache/Fever/Mild Pain (1-3) Amlodipine Besylate 5 mg 03/22/20 09:00 03/23/20 08:50 Amlodipine 5 Mg Tab PO 5 mg BID JAGURA Administration Aspirin 81 mg 03/22/20 09:00 03/23/20 08:49 Aspirin Chewable 81 Mg Tab PO 81 mg DAILY JAGUAR Administration Atorvastatin Calcium 40 mg 03/21/20 21:00 03/22/20 19:53 Atorvastatin Calcium 40 Mg Tab PO 40 mg HS JAGUAR Administration Clopidogrel Bisulfate 75 mg 03/22/20 09:00 03/23/20 08:52 Clopidogrel Bisulfate 75 Mg Tab PO Not Given DAILY JAGUAR Duloxetine HCl 30 mg 03/21/20 21:00 03/23/20 08:51 Duloxetine 30 Mg Cap PO 30 mg BID JAGUAR Administration Enoxaparin Sodium 40 mg 03/22/20 09:00 03/22/20 08:20 Enoxaparin Sodium 40 Mg/0.4 Ml Syringe SC 40 mg 0900 JAGUAR Administration Famotidine 20 mg 03/23/20 09:00 03/23/20 08:49 Famotidine 20 Mg Tab PO 20 mg DAILY JAGUAR Administration Furosemide 40 mg 03/22/20 09:00 03/23/20 08:50 Furosemide 40 Mg Tab PO 40 mg DAILY JAGUAR Administration Gabapentin 600 mg 03/21/20 21:00 03/23/20 08:48 Gabapentin 300 Mg Cap PO 600 mg BID JAGUAR Administration Hydralazine HCl 100 mg 03/21/20 21:00 03/23/20 08:50 Hydralazine 25 Mg Tab PO 100 mg TID JAGUAR Administration Hydralazine HCl 10 mg 03/22/20 05:38 03/22/20 05:53 Hydralazine 20 Mg/Ml Vial SLOW IVP 10 mg Q6H PRN Administration SBP>150 Insulin Glargine 60 units/ 0.6 mls @ 0 mls/hr 03/21/20 21:00 03/22/20 21:09 Miscellaneous Medication SC 0.6 mls BID JAGUAR Administration As Directed Insulin Human Lispro 0 units 03/21/20 15:14 03/22/20 18:47 Humalog 300 Units/3 Ml Vial SC 4 unit .MODERATE SLIDING SC PRN Administration Moderate Correctional Scale Isosorbide Dinitrate 20 mg 03/22/20 09:00 03/23/20 08:51 Isosorbide Dinitrate 20 Mg Tab PO 20 mg TID JAGUAR Administration Losartan Potassium 100 mg 03/22/20 09:00 03/23/20 08:50 Losartan 25 Mg Tab PO 100 mg DAILY JAGUAR Administration Sodium Chloride 10 ml 03/22/20 09:00 03/22/20 19:54 Flush - Normal Saline 10 Ml Syringe IVF 10 ml Q12HR JAGUAR Administration Sodium Chloride 10 ml 03/22/20 21:00 03/22/20 19:54 Flush - Normal Saline 10 Ml Syringe IVF Not Given Q12HR JAGUAR - Exam General Appearance: awake alert Eye: PERRL, anicteric sclera ENT: no oropharyngeal lesions, moist mucosa Neck: supple, no JVD Heart: RRR, no murmur Respiratory: no wheezes, no rales Gastrointestinal: soft, non-tender, non-distended, normal bowel sounds Extremities: no cyanosis, no edema Neurological: cranial nerve grossly intact, no focal deficits Psychiatric: normal affect, A&O x 3 Hosp A/P (1) Mobitz (type) II atrioventricular block Code(s): I44.1 - ATRIOVENTRICULAR BLOCK, SECOND DEGREE Status: Acute (2) CAD (coronary artery disease) Code(s): I25.10 - ATHSCL HEART DISEASE OF [place] CORONARY ARTERY W/O ANG PCTRS Status: Chronic Qualifiers: Coronary Disease-Associated Artery/Lesion type: [place] artery [place] vs. transplanted heart: [place] heart Associated angina: without angina Qualified Code(s): I25.10 - Atherosclerotic heart disease of [place] coronary artery without angina pectoris (3) CKD (chronic kidney disease) stage 3, GFR 30-59 ml/min Code(s): N18.3 - CHRONIC KIDNEY DISEASE, STAGE 3 (MODERATE) * DO NOT USE * Status: Chronic (4) DM2 (diabetes mellitus, type 2) Status: Chronic Qualifiers: Diabetes mellitus salvage determiner insulin use: with chcf use Diabetes mellitus complication status: with kidney complications Diabetes mellitus complication detail: with chronic kidney disease Chronic kidney disease stage: stage 3 (moderate) (5) HLD (hyperlipidemia) Code(s): E78.5 - HYPERLIPIDEMIA, UNSPECIFIED Status: Chronic Qualifiers: (6) HTN (hypertension) Code(s): I10 - ESSENTIAL (PRIMARY) HYPERTENSION Status: Chronic Qualifiers: Hypertension type: essential hypertension Qualified Code(s): I10 - Essen tial (primary) hypertension - Plan is on aspirin, plavix, lipitor, hydralazine, isordil, cozaar, lasix, lantus and cymbalta heart rate still in the 40-60/min range for pace maker placement today, d/w . hemostable
[2020-03-23] MEDS ORDERED: Midazolam HCl 2 mg/2 ml Vial ONE (10:24)
[2020-03-23] MEDS ORDERED: Fentanyl 100 MCG/2 ML VIAL ONE (10:25)
[2020-03-23] MEDS: Insulin Glargine 60 UNITS in Pre-Filled Syringe 1 EACH SC SCH ×2 (13:04→21:22)
--- NOTE | 2020-03-23 14:22 | DIS ---
DATE OF ADMISSION: 03/21/2020 DATE OF DISCHARGE: 03/23/2020 DISCHARGE DISPOSITION: Home. PRIMARY DISCHARGE DIAGNOSIS: Type 2 [place] heart block, status post pacemaker. SECONDARY DISCHARGE DIAGNOSES: Hypertension, uncontrolled; coronary artery disease with recent stent; diabetes mellitus type 2; chronic kidney disease stage 3; and dyslipidemia. PROCEDURES DONE DURING HOSPITALIZATION: Chest x-ray done showed no acute findings. The patient has had a pacemaker placed by Dr. Selvin Ramirez on 03/23/2020. Hemoglobin and hematocrit 10 and 33, platelet count 224. BUN 25, creatinine 1.6. COVID-19 PCR was not detected on 03/21/2020. DISCHARGE MEDICATIONS: 1. Duloxetine 30 mg p.o. twice daily. 2. Eliquis 5 mg twice daily. 3. Gabapentin 600 mg twice daily. 4. Levemir 60 units subcu twice daily. 5. Hydralazine 100 mg p.o. three times daily. 6. Isordil 20 mg three times daily. 7. Aspirin 81 mg p.o. daily. 8. Coreg 6.25 mg p.o. twice daily. 9. Cozaar 100 mg p.o. daily. 10. Keflex 500 mg p.o. three times daily for seven days. 11. Lasix 40 mg daily. 12. Lipitor 40 mg p.o. at bedtime. 13. Plavix 75 mg p.o. daily. ALLERGIES: ULTRAM. DISCHARGE PLAN: The patient to follow up with his primary care physician and nurse practitioner, Ms. Naa Salgado in 1 week, Dr. Estrella in 2 to 3 weeks, Dr. Selvin Ramirez in 10 days. BRIEF COURSE DURING HOSPITALIZATION: The patient initially got admitted on the March 21 after he was sent from his primary care physician's office for severe bradycardia with heart rates in 30s. The patient has known history of chronic bradycardia. He was found to be in [place] type 2 heart block with heart rates in the 40s. He was taken off carvedilol and was monitored for nearly 36 hours despite which his heart rate did not improve much. He has had consultation with Dr. Selvin Ramirez. The patient has had placement of pacemaker for the same. He has been cleared for discharge by Dr. Selvin Ramirez. He needs to continue Keflex post pacemaker procedure. His medications were optimized. He is advised to check his blood pressure twice daily, pulse twice daily, and fingerstick glucose twice daily as well and record for 10 days to follow up with primary care physician for changes in his medication. The patient would also benefit from a metabolic panel to be done in a week from now via primary care physician's office. Please see a [id number] documentation for the day of discharge on [facility]. Job ID: [id number]
--- NOTE | 2020-03-23 14:30 | PRG ---
DATE OF SERVICE: 03/23/2020 SUBJECTIVE: Mr. Abernathy is currently doing well. No current complaints. He is scheduled for pacemaker today. I am managing his blood pressure. Blood pressure overall appears improved. OBJECTIVE: VITAL SIGNS: 148/70, pulse 76, temperature 97.9. LUNGS: Clear to auscultation. HEART: Regular rate and rhythm. ABDOMEN: Soft, nontender, nondistended. EXTREMITIES: No edema. IMPRESSION: 1. Coronary artery disease. 2. Status post stent placement. 3. 2:1 AV block. 4. Hypertension. RECOMMENDATIONS: 1. Mr. Abernathy is scheduled for pacemaker today. 2. Blood pressure appears stable. I would recommend adding Coreg if needed for better blood pressure control. 3. Okay for discharge after pacemaker if okay with Dr. Ornelas with close outpatient followup. Job ID: [id number]
[2020-03-23] MEDS: Acetaminophen/Codeine 30-300mg Tablet PO PRN ×3 (15:01→23:51)
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
[2020-03-23] MEDS: HumaLOG 300 UNITS/3 ML VIAL SC PRN (17:29)
[2020-03-23] MEDS: Cephalexin 250 MG CAP PO SCH ×2 (17:29→23:51)
[2020-03-23] MEDS: Atorvastatin Calcium 40 MG TAB PO SCH (20:07)
[2020-03-24] MEDS: Acetaminophen/Codeine 30-300mg Tablet PO PRN ×2 (04:58→15:25)
[2020-03-24] MEDS: Cephalexin 250 MG CAP PO SCH ×3 (04:58→17:26)
[2020-03-24 09:06] LABS: #Basophils 0.1 thou/uL (0.0-0.2); #Eosinphils 0.1 thou/uL (0.0-0.7); #Lymphocytes 1.4 thou/uL (1.20-3.40); #Monocytes 0.7 thou/uL (0.11-0.59); #Neutrophils 6.1 thou/uL (1.40-6.50); %Basophils 0.6 % (0.0-1.0); %Eosinophils 0.7 % (0.0-10.0); %Monocytes 8.5 % (0.0-10.0); %Neutrophils 73.2 % (42.0-75.0); Hemoglobin 9.2 g/dL (14.0-18.0); Mean Corpuscular HGB CONC 30.6 g/dL (32.0-36.0); Mean Corpuscular Hemoglobin 26.9 pg (27.0-31.0); Mean Corpuscular Volume 87.8 fL (78.0-98.0); Platelet Count 217 thou/uL (130-400); Red Blood Cell (RBC) Count 3.43 mill/uL (4.70-6.10); White Blood Cell (WBC) Count 8.4 thou/uL (4.8-10.8)
[2020-03-24 09:24] LABS: Anion Gap 15 mmol/L (10-20); BUN (Urea Nitrogen) 34 mg/dL (8.4-25.7); Calc. Creatinine Clearance 29 mL/min (70-130); Calcium 7.7 mg/dL (7.8-10.44); Carbon Dioxide 24 mmol/L (23-31); Chloride 104 mmol/L (98-107); Glucose 88 mg/dL (83-110); Potassium 4.7 mmol/L (3.5-5.1); Sodium 138 mmol/L (136-145)
[2020-03-24] MEDS: Gabapentin 300 MG CAP PO SCH ×2 (09:50→20:32)
[2020-03-24] MEDS: Famotidine 20 MG TAB PO SCH (09:51)
[2020-03-24] MEDS: Losartan 25 MG TAB PO SCH (09:51)
[2020-03-24] MEDS: Amlodipine 5 MG TAB PO SCH ×2 (09:51→20:32)
[2020-03-24] MEDS: Clopidogrel Bisulfate 75 MG TAB PO SCH (09:51)
[2020-03-24] MEDS: Aspirin Chewable 81 MG TAB PO SCH (09:52)
[2020-03-24] MEDS: DULoxetine 30 MG CAP PO SCH ×2 (09:52→20:32)
[2020-03-24] MEDS: hydrALAZINE 25 MG TAB PO SCH ×3 (09:52→20:33)
[2020-03-24] MEDS: Isosorbide Dinitrate 20 MG TAB PO SCH ×3 (09:52→20:41)
--- NOTE | 2020-03-24 09:52 | RAD ---
PORTABLE CHEST: HISTORY: Post pacemaker placement. COMPARISON: 03/21/2020. FINDINGS/IMPRESSION: Dual-lead pacemaker device has been placed. The atrial lead does cross the midline overlying the tho racic spine. Ventricle lead is to just to the left of the thoracic spine. Lungs are clear. No pneumothorax or infiltrate. Mild cardiomegaly. POS: AGW
[2020-03-24] MEDS: Furosemide 40 MG TAB PO SCH (09:53)
[2020-03-24] MEDS: Insulin Glargine 60 UNITS in Pre-Filled Syringe 1 EACH SC SCH (09:53)
[2020-03-24] MEDS ORDERED: Carvedilol 6.25 MG TAB PO SCH (10:15)
[2020-03-24] MEDS ORDERED: Polyethylene Glycol 3350 17 GM Packet PO PRN (15:23)
--- NOTE | 2020-03-24 15:24 | PDOC.HOSPP ---
- Subjective Encounter Date: 03/24/20 (f/u diabetes) Encounter Time: 15:22 Subjective: Pt today c/o right sided chest pain, noticed when he was up and walking. mild, no change with tylenol. He denies any difficulty breathing or any incisional pain. He also denies any n/v/abd pain. last bm - few days ago. - Objective Vital Signs & Weight: Vital Signs (12 hours) Temp Pulse Resp BP Pulse Ox 03/24/20 11:00 97.9 F 64 14 146/77 H 100 03/24/20 07:22 98.5 F 61 16 141/64 H 95 03/24/20 04:54 98.6 F 63 18 127/99 H 98 Weight Weight 200 lb 11.2 oz I&O: 03/23/20 03/24/20 03/25/20 06:59 06:59 06:59 Intake Total 940 736 Balance 940 736 Result Diagrams: 03/24/20 08:55 03/24/20 08:55 Additional Labs: Accuchecks 03/23/20 03/23/20 20:23 16:38 POC Glucose 156 H 201 H EKG Reviewed by me: Yes (tele - paced 60's, pacemaker spikes off per singing telegram performer) Hospitalist ROS - Medication Medications: Active Medications Generic Name Dose Route Start Last Admin Trade Name Freq PRN Reason Stop Dose Admin Acetaminophen 650 mg 03/21/20 15:14 03/22/20 19:52 Acetaminophen 325 Mg Tab PO 650 mg Q4H PRN Administration Headache/Fever/Mild Pain (1-3) Acetaminophen/Codeine Phosphate 1 tab 03/23/20 14:40 03/23/20 20:08 Acetaminophen/Codeine 30-300mg Tablet PO 1 tab Q4H PRN Administration Mild Pain (1-3) Acetaminophen/Codeine Phosphate 2 tab 03/23/20 14:40 03/24/20 04:58 Acetaminophen/Codeine 30-300mg Tablet PO 2 tab Q4H PRN Administration Moderate Pain (4-6) Amlodipine Besylate 5 mg 03/22/20 09:00 03/24/20 09:51 Amlodipine 5 Mg Tab PO 5 mg BID JAGUAR Administration Aspirin 81 mg 03/22/20 09:00 03/24/20 09:52 Aspirin Chewable 81 Mg Tab PO 81 mg DAILY JAGUAR Administration Atorvastatin Calcium 40 mg 03/21/20 21:00 03/23/20 20:07 Atorvastatin Calcium 40 Mg Tab PO 40 mg HS JAGUAR Administration Cephalexin 500 mg 03/23/20 18:00 03/24/20 11:57 Cephalexin 250 Mg Cap PO 03/30/20 23:59 500 mg Q6HR JAGUAR Administration Clopidogrel Bisulfate 75 mg 03/22/20 09:00 03/24/20 09:51 Clopidogrel Bisulfate 75 Mg Tab PO 75 mg DAILY JAGUAR Administration Duloxetine HCl 30 mg 03/21/20 21:00 03/24/20 09:52 Duloxetine 30 Mg Cap PO 30 mg BID JAGUAR Administration Famotidine 20 mg 03/23/20 09:00 03/24/20 09:51 Famotidine 20 Mg Tab PO 20 mg DAILY JAGUAR Administration Furosemide 40 mg 03/22/20 09:00 03/24/20 09:53 Furosemide 40 Mg Tab PO 40 mg DAILY JAGUAR Administration Gabapentin 600 mg 03/21/20 21:00 03/24/20 09:50 Gabapentin 300 Mg Cap PO 600 mg BID JAGUAR Administration Hydralazine HCl 100 mg 03/21/20 21:00 03/24/20 09:52 Hydralazine 25 Mg Tab PO 100 mg TID JAGUAR Administration Hydralazine HCl 10 mg 03/22/20 05:38 03/22/20 05:53 Hydralazine 20 Mg/Ml Vial SLOW IVP 10 mg Q6H PRN Administration SBP>150 Insulin Human Lispro 0 units 03/21/20 15:14 03/23/20 17:29 Humalog 300 Units/3 Ml Vial SC 4 unit .MODERATE SLIDING SC PRN Administration Moderate Correctional Scale Isosorbide Dinitrate 20 mg 03/22/20 09:00 03/24/20 09:52 Isosorbide Dinitrate 20 Mg Tab PO 20 mg TID JAGUAR Administration Sodium Chloride 10 ml 03/22/20 21:00 03/24/20 09:53 Flush - Normal Saline 10 Ml Syringe IVF 10 ml Q12HR JAGUAR Administration - Exam General Appearance: NAD Heart: RRR, no murmur Respiratory: CTAB, no wheezes, no rales, no ronchi Gastrointestinal: soft, non-tender, non-distended, normal bowel sounds Extremities: no cyanosis, no clubbing Extremities - other findings: 1+ pitting edema bilateral Psychiatric: normal affect Hosp A/P (1) DEE (acute kidney injury) Code(s): N17.9 - ACUTE KIDNEY FAILURE, UNSPECIFIED Status: Acute (2) Mobitz (type) II atrioventricular block Code(s): I44.1 - ATRIOVENTRICULAR BLOCK, SECOND DEGREE Status: Acute (3) CAD (coronary artery disease) Code(s): I25.10 - ATHSCL HEART DISEASE OF [place] CORONARY ARTERY W/O ANG PCTRS Status: Chronic Qualifiers: Coronary Disease-Associated Artery/Lesion type: [place] artery [place] vs. transplanted heart: [place] heart Associated angina: without angina Qualified Code(s): I25.10 - Atherosclerotic heart disease of [place] coronary artery without angina pectoris (4) CKD (chronic kidney disease) stage 3, GFR 30-59 ml/min Code(s): N18.3 - CHRONIC KIDNEY DISEASE, STAGE 3 (MODERATE) * DO NOT USE * Status: Chronic Qualifiers: Chronic kidney disease stage 3 subtype: stage 3a (GFR 45-59) Qualified Code(s): N18.31 - Chronic kidney disease, stage 3a (5) DM2 (diabetes mellitus, type 2) Status: Chronic Qualifiers: Diabetes mellitus regional economist insulin use: with regional economist use Diabetes mellitus complication status: with kidney complications Diabetes mellitus complication detail: with chronic kidney disease Chronic kidney disease stage: stage 3 (moderate) (6) HLD (hyperlipidemia) Code(s): E78.5 - HYPERLIPIDEMIA, UNSPECIFIED Status: Chronic Qualifiers: Hyperlipidemia type: unspecified Qualified Code(s): E78.5 - Hyperlipidemia, unspecified (7) HTN (hypertension) Code(s): I10 - ESSENTIAL (PRIMARY) HYPERTENSION Status: Chronic Qualifiers: Hypertension type: essential hypertension Qualified Code(s): I10 - Essential (primary) hypertension - Plan Mobitz type 2 AV block s/p pacmaker - per Dr. 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 Continue the lantus 60 units AM. Pt does not remember if he takes 60 units once or twice daily at home. Constipation - pt requests milk and prune juice = add prn bowel meds continue other meds as ordered dvt prophy - ambulatory gi prophy - not indicated code status full reviewed plan of care with patient, no questions or further needs at end of eval.
[2020-03-24] MEDS: Sodium Chloride 0.9% 1,000 ML IV SCH (16:56)
--- NOTE | 2020-03-24 17:04 | ULT ---
Exam: Bilateral renal ultrasound HISTORY: Acute kidney insufficiency with chronic kidney disease COMPARISON: 09/19/2018 FINDINGS: Right kidney: Normal cortical echotexture. No hydronephrosis. Right kidney measurements: 5.0 x 9.2 x 4.4 cm. Left kidney: Normal cortical echotexture. No hydronephrosis Left kidney measurements 4.9 x 8.4 x 4.9 cm. Urinary bladder: Normal mucosa. Prevoid volume is 700 mL. IMPRESSION: 1. Limited evaluation due to body habitus. No definite hydronephrosis 2. Significant urinary bladder distention. Encourage voiding. If there is concern for post void resid ual, consider dedicated sonographic imaging of the bladder pre and postvoid.
[2020-03-24] MEDS: Atorvastatin Calcium 40 MG TAB PO SCH (20:31)
[2020-03-24] MEDS: Carvedilol 6.25 MG TAB PO SCH (20:32)
[2020-03-25] MEDS: Cephalexin 250 MG CAP PO SCH ×5 (00:16→23:58)
[2020-03-25] MEDS: Sodium Chloride 0.9% 1,000 ML IV SCH ×3 (03:35→20:23)
[2020-03-25 04:15] LABS: Bilirubin Negative (Negative); Blood, Urine Negative (Negative); Clarity Clear (Clear); Glucose, Urine (Dipstick) Normal (Negative); Ketone, Urine Negative (Negative); Leukocyte Negative Leu/uL (Negative); Nitrite Negative (Negative); Protein, Urine (Dipstick) 100 mg/dL (Neg-Trace); RBC/HPF 0-3 HPF (0-3); Specific Gravity, Urine 1.015 (1.002-1.036); Squamous Epithelial 0-3 HPF (0-3); Urobilinogen Normal mg/dL (Less than 2); WBC/HPF 0-3 HPF (0-3); pH, Urine 5.5 (5.0-9.0)
[2020-03-25 04:16] LABS: Bacteria/HPF Rare-Few HPF (None Seen)
[2020-03-25 04:32] LABS: #Basophils 0.1 thou/uL (0.0-0.2); #Eosinphils 0.2 thou/uL (0.0-0.7); #Lymphocytes 2.5 thou/uL (1.20-3.40); #Monocytes 1.7 thou/uL (0.11-0.59); #Neutrophils 8.3 thou/uL (1.40-6.50); %Basophils 0.4 % (0.0-1.0); %Eosinophils 1.3 % (0.0-10.0); %Lymphocytes 19.6 % (21.0-51.0); %Neutrophils 65.7 % (42.0-75.0); Mean Corpuscular HGB CONC 31.5 g/dL (32.0-36.0); Mean Corpuscular Hemoglobin 27.8 pg (27.0-31.0); Mean Corpuscular Volume 88.1 fL (78.0-98.0); Mean Platelet Volume 8.8 fL (7.4-10.4); Platelet Count 230 thou/uL (130-400); RBC Distribution Width 12.1 % (11.5-14.5); Red Blood Cell (RBC) Count 3.23 mill/uL (4.70-6.10); White Blood Cell (WBC) Count 12.7 thou/uL (4.8-10.8)
[2020-03-25 04:43] LABS: Anion Gap 17 mmol/L (10-20); BUN (Urea Nitrogen) 37 mg/dL (8.4-25.7); Calc. Creatinine Clearance 33 mL/min (70-130); Calcium 7.7 mg/dL (7.8-10.44); Carbon Dioxide 21 mmol/L (23-31); Chloride 99 mmol/L (98-107); Sodium 133 mmol/L (136-145)
[2020-03-25 04:49] LABS: Glucose 33 mg/dL (83-110)
[2020-03-25] MEDS: Dextrose 50% Abboject 50 ML SYRINGE SLOW IVP PRN ×2 (04:54→05:41)
[2020-03-25] MEDS ORDERED: Insulin Glargine 60 UNITS in Pre-Filled Syringe 1 EACH SC SCH (09:00)
[2020-03-25] MEDS ORDERED: Insulin Glargine 30 UNITS in Pre-Filled Syringe 1 EACH SC SCH (09:00)
--- NOTE | 2020-03-25 09:08 | PDOC.HOSPP ---
- Subjective Encounter Date: 03/25/20 (f/u DEE) Encounter Time: 09:06 Subjective: Pt states that he is not happy this morning. Overnight he was bladder scanned and i/o cath recommended - he declined all but once. the output from the i/o cath was 1200 ml. Blood sugar was also in the 30's and hypoglycemia protocol was started. He c/o chest pain this morning -the same chest pain as during this hospitalization. He also c/o swelling in his legs. - Objective Vital Signs & Weight: Vital Signs (12 hours) Temp Pulse Resp BP BP Pulse Ox 03/25/20 07:51 97.8 F 62 18 190/88 H 99 03/25/20 03:59 97.9 F 74 20 148/66 H 94 L Weight Weight 215 lb 1.6 oz I&O: 03/24/20 03/25/20 03/26/20 06:59 06:59 06:59 Intake Total 736 2040 Output Total 2800 Balance 736 -760 Result Diagrams: 03/25/20 04:01 03/25/20 04:01 Additional Labs: Accuchecks 03/24/20 03/24/20 21:35 16:13 POC Glucose 126 H 88 EKG Reviewed by me: Yes (tele - paced 70-80's) Hospitalist ROS - Medication Medications: Active Medications Generic Name Dose Route Start Last Admin Trade Name Freq PRN Reason Stop Dose Admin Acetaminophen 650 mg 03/21/20 15:14 03/22/20 19:52 Acetaminophen 325 Mg Tab PO 650 mg Q4H PRN Administration Headache/Fever/Mild Pain (1-3) Acetaminophen/Codeine Phosphate 1 tab 03/23/20 14:40 03/23/20 20:08 Acetaminophen/Codeine 30-300mg Tablet PO 1 tab Q4H PRN Administration Mild Pain (1-3) Acetaminophen/Codeine Phosphate 2 tab 03/23/20 14:40 03/24/20 15:25 Acetaminophen/Codeine 30-300mg Tablet PO 2 tab Q4H PRN Administration Moderate Pain (4-6) Amlodipine Besylate 5 mg 03/22/20 09:00 03/24/20 20:32 Amlodipine 5 Mg Tab PO 5 mg BID JAGUAR Administration Aspirin 81 mg 03/22/20 09:00 03/24/20 09:52 Aspirin Chewable 81 Mg Tab PO 81 mg DAILY JAGUAR Administration Atorvastatin Calcium 40 mg 03/21/20 21:00 03/24/20 20:31 Atorvastatin Calcium 40 Mg Tab PO 40 mg HS JAGUAR Administration Carvedilol 6.25 mg 03/24/20 21:00 03/24/20 20:32 Carvedilol 6.25 Mg Tab PO 6.25 mg BID JAGUAR Administration Cephalexin 500 mg 03/23/20 18:00 03/25/20 04:58 Cephalexin 250 Mg Cap PO 03/30/20 23:59 500 mg Q6HR JAGUAR Administration Clopidogrel Bisulfate 75 mg 03/22/20 09:00 03/24/20 09:51 Clopidogrel Bisulfate 75 Mg Tab PO 75 mg DAILY JAGUAR Administration Dextrose/Water 25 gm 03/21/20 15:14 03/25/20 05:41 Dextrose 50% Abboject 50 Ml Syringe SLOW IVP 25 gm PRN PRN Administration Hypoglycemia Duloxetine HCl 30 mg 03/21/20 21:00 03/24/20 20:32 Duloxetine 30 Mg Cap PO 30 mg BID [facility] Administration Famotidine 20 mg 03/23/20 09:00 03/24/20 09:51 Famotidine 20 Mg Tab PO 20 mg DAILY JAGUAR Administration Gabapentin 600 mg 03/21/20 21:00 03/24/20 20:32 Gabapentin 300 Mg Cap PO Not Given BID [facility] Hydralazine HCl 100 mg 03/21/20 21:00 03/24/20 20:33 Hydralazine 25 Mg Tab PO 100 mg TID JAGUAR Administration Hydralazine HCl 10 mg 03/22/20 05:38 03/22/20 05:53 Hydralazine 20 Mg/Ml Vial SLOW IVP 10 mg Q6H PRN Administration SBP>150 Insulin Human Lispro 0 units 03/21/20 15:14 03/23/20 17:29 Humalog 300 Units/3 Ml Vial SC 4 unit .MODERATE SLIDING SC PRN Administration Moderate Correctional Scale Isosorbide Dinitrate 20 mg 03/22/20 09:00 03/24/20 20:41 Isosorbide Dinitrate 20 Mg Tab PO 20 mg TID JAGUAR Administration Sodium Chloride 10 ml 03/22/20 21:00 03/24/20 20:33 Flush - Normal Saline 10 Ml Syringe IVF Not Given Q12HR [facility] - Exam General Appearance: NAD Heart: RRR, no murmur Respiratory: no wheezes, no rales, no ronchi Gastrointestinal: soft, non-tender, normal bowel sounds Extremities: no cyanosis, no clubbing, 1+ LE edema Psychiatric: normal affect Hosp A/P (1) DEE (acute kidney injury) Code(s): N17.9 - ACUTE KIDNEY FAILURE, UNSPECIFIED Status: Acute (2) Mobitz (type) II atrioventricular block Code(s): I44.1 - ATRIOVENTRICULAR BLOCK, SECOND DEGREE Status: Acute (3) CAD (coronary artery disease) Code(s): I25.10 - ATHSCL HEART DISEASE OF [place] CORONARY ARTERY W/O ANG PCTRS Status: Chronic Qualifiers: Coronary Disease-Associated Artery/Lesion type: [place] artery [place] vs. transplanted heart: [place] heart Associated angina: without angina Qualified Code(s): I25.10 - Atherosclerotic heart disease of [place] coronary artery without angina pectoris (4) CKD (chronic kidney disease) stage 3, GFR 30-59 ml/min Code(s): N18.3 - CHRONIC KIDNEY DISEASE, STAGE 3 (MODERATE) * DO NOT USE * Status: Chronic Qualifiers: Chronic kidney disease stage 3 subtype: stage 3a (GFR 45-59) Qualified Code(s): N18.31 - Chronic kidney disease, stage 3a (5) DM2 (diabetes mellitus, type 2) Status: Chronic Qualifiers: Diabetes mellitus jail insulin use: with intermission coordinator use Diabetes mellitus complication status: with kidney complications Diabetes mellitus complication detail: with chronic kidney disease Chronic kidney disease stage: stage 3 (moderate) (6) HLD (hyperlipidemia) Code(s): E78.5 - HYPERLIPIDEMIA, UNSPECIFIED Status: Chronic Qualifiers: Hyperlipidemia type: unspecified Qualified Code(s): E78.5 - Hyperlipidemia, unspecified (7) HTN (hypertension) Code(s): I10 - ESSENTIAL (PRIMARY) HYPERTENSION Status: Chronic Qualifiers: Hypertension type: essential hypertension Qualified Code(s): I10 - Essential (primary) hypertension (8) Urinary retention Code(s): R33.9 - RETENTION OF URINE, UNSPECIFIED Status: Acute - Plan Mobitz type 2 AV block s/p pacmaker - per Dr. Ramirez - one lead dislodged, plan to repair this tomorrow DEE with CKD - likely multifactorial including ARB, and outlet obstruction with urinary retention - recommend cochran cath - currently post-void (void = 150 ml) there is about 500 ml in bladder - Nephrology consult - d/c IVF - losartan d/c - last dose yesterday morning - d/c lasix for now - await Nephrology consult - reviewed with patient that LE swelling is secondary to IVF. Urinary retention - recommend cochran cath - hold on adding bph meds for now due to renal function - will need outpatient Urology arranged for f/u - anticipate in about a week. HTN -not optimally controlled - losartan d/c yesterday due to renal function - can increase hydralazine if remains elevated throughout the day DM type 2 - severe hypoglycemia this morning. Last dose of long-acting insulin was yesterday morning. D/c all long-acting insulin and monitor Constipation - bowel meds prn pt c/o gabapentin causing him to jerk/shake -will d/c continue other meds as ordered dvt prophy - ambulatory gi prophy - not indicated code status full reviewed plan of care with patient, no questions or further needs at end of eval. Addendum/16:43 - informed by RN that pt has gross hematuria - onset after a shower. Prior to this cochran draining clear yellow urine. Pt is on aspirin/plavix, is not on pharmacologic dvt prophylaxis. Urology consult. I called Dr. Samano and left a message with the room number, and requested that the 2N contact Dr. Samano with this consult as well. Will hold the aspirin and plavix doses scheduled for the morning.
[2020-03-25] MEDS: hydrALAZINE 25 MG TAB PO SCH ×3 (09:56→20:19)
[2020-03-25] MEDS: Clopidogrel Bisulfate 75 MG TAB PO SCH (09:56)
[2020-03-25] MEDS: Aspirin Chewable 81 MG TAB PO SCH (09:56)
[2020-03-25] MEDS: DULoxetine 30 MG CAP PO SCH ×2 (09:57→20:20)
[2020-03-25] MEDS: Gabapentin 300 MG CAP PO SCH ×2 (09:57→20:23)
[2020-03-25] MEDS: Amlodipine 5 MG TAB PO SCH ×2 (09:57→20:20)
[2020-03-25] MEDS: Famotidine 20 MG TAB PO SCH (09:57)
[2020-03-25] MEDS: Isosorbide Dinitrate 20 MG TAB PO SCH ×3 (09:57→20:20)
[2020-03-25] MEDS: Carvedilol 6.25 MG TAB PO SCH ×2 (10:00→20:20)
[2020-03-25] MEDS: Acetaminophen/Codeine 30-300mg Tablet PO PRN ×3 (10:32→20:20)
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
[2020-03-25] MEDS: Ferrous Sulfate 325 MG TAB PO SCH (16:42)
[2020-03-25] MEDS: Atorvastatin Calcium 40 MG TAB PO SCH (20:19)
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
[2020-03-26] MEDS: Carvedilol 6.25 MG TAB PO SCH ×2 (02:31→21:56)
[2020-03-26] MEDS: Sodium Chloride 0.9% 1,000 ML IV SCH (03:40)
[2020-03-26 03:57] LABS: #Basophils 0.1 thou/uL (0.0-0.2); #Eosinphils 0.2 thou/uL (0.0-0.7); #Lymphocytes 2.2 thou/uL (1.20-3.40); #Monocytes 1.1 thou/uL (0.11-0.59); %Basophils 0.7 % (0.0-1.0); %Eosinophils 1.7 % (0.0-10.0); %Lymphocytes 23.3 % (21.0-51.0); %Monocytes 11.2 % (0.0-10.0); %Neutrophils 63.1 % (42.0-75.0); Mean Corpuscular HGB CONC 31.1 g/dL (32.0-36.0); Mean Corpuscular Hemoglobin 27.9 pg (27.0-31.0); Mean Corpuscular Volume 89.8 fL (78.0-98.0); Mean Platelet Volume 8.7 fL (7.4-10.4); Platelet Count 187 thou/uL (130-400); RBC Distribution Width 12.1 % (11.5-14.5); Red Blood Cell (RBC) Count 3.23 mill/uL (4.70-6.10); White Blood Cell (WBC) Count 9.5 thou/uL (4.8-10.8)
[2020-03-26 04:18] LABS: Anion Gap 14 mmol/L (10-20); BUN (Urea Nitrogen) 36 mg/dL (8.4-25.7); Calc. Creatinine Clearance 37 mL/min (70-130); Calcium 7.6 mg/dL (7.8-10.44); Carbon Dioxide 20 mmol/L (23-31); Chloride 101 mmol/L (98-107); Glucose 103 mg/dL (83-110); Phosphorus 4.2 mg/dL (2.3-4.7); Sodium 130 mmol/L (136-145)
[2020-03-26] MEDS: Cephalexin 250 MG CAP PO SCH ×4 (05:35→23:32)
[2020-03-26] MEDS: Acetaminophen/Codeine 30-300mg Tablet PO PRN ×3 (05:38→23:35)
[2020-03-26] MEDS: DULoxetine 30 MG CAP PO SCH ×2 (08:31→21:55)
[2020-03-26] MEDS: hydrALAZINE 25 MG TAB PO SCH ×4 (08:32→21:57)
[2020-03-26] MEDS: Gabapentin 300 MG CAP PO SCH ×2 (08:32→21:57)
[2020-03-26] MEDS: Ferrous Sulfate 325 MG TAB PO SCH ×2 (08:32→18:21)
[2020-03-26] MEDS: Amlodipine 5 MG TAB PO SCH ×2 (08:33→21:55)
[2020-03-26] MEDS: Tamsulosin HCl 0.4 MG CAP PO SCH (08:33)
[2020-03-26] MEDS: Isosorbide Dinitrate 20 MG TAB PO SCH ×3 (08:33→21:58)
[2020-03-26] MEDS: Famotidine 20 MG TAB PO SCH (08:34)
--- NOTE | 2020-03-26 08:43 | PRG ---
DATE OF SERVICE: SUBJECTIVE: Mr. Abernathy is a 74-year-old black male, who was admitted due to bradycardia. He was seen by Cardiology and implantation of a pacemaker is being considered. We are seeing this patient for his acute kidney injury. He was restarted on IV fluid with improvement of his serum creatinine from 2.9 to most recent value of 2.45. No other complaints. No chest pain or shortness of breath. OBJECTIVE: VITAL SIGNS: Blood pressure is 154/69, heart rate 60, respiratory rate 20, temperature 98.5, and O2 saturation 93% on room air. GENERAL: The patient is awake, alert, comfortable, not in distress. SKIN: Adequate turgor. HEENT: He has pinkish, slightly pale conjunctivae. Anicteric sclerae. NECK: No neck mass. No carotid bruits. No JVD. CHEST: No deformities. LUNGS: Clear breath sounds. HEART: Normal sinus rhythm. No murmur. No gallops. No rubs. ABDOMEN: Globular, soft, nontender. No masses. EXTREMITIES: No edema. No deformities. MEDICATIONS: Medications of March 26, 2020, reviewed. LABORATORY DATA: Laboratories of March 26, 2020; white count 9.5, hemoglobin 9. Sodium 130, potassium 5, chloride 101, carbon dioxide 20, BUN 36, creatinine 2.45, calcium 7.6, phosphorus 4.2, PTH is 151.7. ASSESSMENT AND PLAN: 1. Anemia, on iron supplementation. 2. Acute kidney injury on top of his chronic renal failure. Stabilizing renal function with IV fluid. Continue supportive care. No indication for any dialytic intervention. 3. Secondary hyperparathyroidism. We will start the patient on calcitriol 0.25 mcg tablet daily. 4. Bradycardia for possible pacemaker placement today. Recheck CBC and basic met in a.m. Job ID: [id number]
--- NOTE | 2020-03-26 08:47 | PDOC.HOSPP ---
- Subjective Encounter Date: 03/26/20 (f/u DEE with CKD) Encounter Time: 08:45 Subjective: 74 y/o male admitted for sx bradycardia who underwent pacemaker placement with Dr. Ramirez. Post-procedure one of the leads became dislodged and pt is due to re- placement today. Other issues during this hospitalization: 1. DEE with CKD - identified 2 days ago. Losartan stopped, Nephro consulted, IVF and cochran cath for urinary retention 2. Urinary retention, cochran placement and gross hematuria after movement - Urology consulted yesterday 3. Hypoglycemia two nights ago and again today - all long-acting insulin was d/c Pt this morning c/o some pain from groin. He overall is feeling better. Yesterday had hematuria after a shower, which is clearing. Per RN the tube is draining well. No concerns this morning. - Objective Vital Signs & Weight: Vital Signs (12 hours) Temp Pulse Resp BP Pulse Ox 03/26/20 08:33 64 03/26/20 08:32 64 03/26/20 08:00 98.3 F 64 16 161/72 H 100 03/26/20 03:40 98.5 F 60 20 154/69 H 93 L Weight Weight 212 lb 12.8 oz I&O: 03/25/20 03/26/20 03/27/20 06:59 06:59 06:59 Intake Total 2040 3020 Output Total 2800 1800 Balance -760 1220 Result Diagrams: 03/26/20 03:39 03/26/20 03:39 Additional Labs: Accuchecks 03/26/20 03/25/20 03/25/20 06:05 19:49 16:50 POC Glucose 80 115 H 113 H 03/25/20 11:28 POC Glucose 166 H EKG Reviewed by me: Yes (tele - sinus and paced 60's) Hospitalist ROS - Medication Medications: Active Medications Generic Name Dose Route Start Last Admin Trade Name Freq PRN Reason Stop Dose Admin Acetaminophen 650 mg 03/21/20 15:14 03/22/20 19:52 Acetaminophen 325 Mg Tab PO 650 mg Q4H PRN Administration Headache/Fever/Mild Pain (1-3) Acetaminophen/Codeine Phosphate 1 tab 03/23/20 14:40 03/23/20 20:08 Acetaminophen/Codeine 30-300mg Tablet PO 1 tab Q4H PRN Administration Mild Pain (1-3) Acetaminophen/Codeine Phosphate 2 tab 03/23/20 14:40 03/26/20 05:38 Acetaminophen/Codeine 30-300mg Tablet PO 2 tab Q4H PRN Administration Moderate Pain (4-6) Amlodipine Besylate 5 mg 03/22/20 09:00 03/26/20 08:33 Amlodipine 5 Mg Tab PO 5 mg BID JAGUAR Administration Aspirin 81 mg 03/22/20 09:00 03/25/20 09:56 Aspirin Chewable 81 Mg Tab PO 81 mg DAILY JAGUAR Administration Atorvastatin Calcium 40 mg 03/21/20 21:00 03/25/20 20:19 Atorvastatin Calcium 40 Mg Tab PO 40 mg HS JAGUAR Administration Carvedilol 6.25 mg 03/24/20 21:00 03/26/20 02:31 Carvedilol 6.25 Mg Tab PO Not Given BID JAGUAR Cephalexin 500 mg 03/23/20 18:00 03/26/20 05:35 Cephalexin 250 Mg Cap PO 03/30/20 23:59 500 mg Q6HR JAGUAR Administration Clopidogrel Bisulfate 75 mg 03/22/20 09:00 03/25/20 09:56 Clopidogrel Bisulfate 75 Mg Tab PO 75 mg DAILY JAGUAR Administration Dextrose/Water 25 gm 03/21/20 15:14 03/25/20 05:41 Dextrose 50% Abboject 50 Ml Syringe SLOW IVP 25 gm PRN PRN Administration Hypoglycemia Duloxetine HCl 30 mg 03/21/20 21:00 03/26/20 08:31 Duloxetine 30 Mg Cap PO 30 mg BID JAGUAR Administration Famotidine 20 mg 03/23/20 09:00 03/26/20 08:34 Famotidine 20 Mg Tab PO 20 mg DAILY JAGUAR Administration Ferrous Sulfate 325 mg 03/25/20 17:00 03/26/20 08:32 Ferrous Sulfate 325 Mg Tab PO 325 mg BID-WM JAGUAR Administration Gabapentin 600 mg 03/21/20 21:00 03/26/20 08:32 Gabapentin 300 Mg Cap PO Not Given BID JAGUAR Hydralazine HCl 10 mg 03/22/20 05:38 03/22/20 05:53 Hydralazine 20 Mg/Ml Vial SLOW IVP 10 mg Q6H PRN Administration SBP>150 Hydralazine HCl 100 mg 03/25/20 21:00 03/26/20 08:32 Hydralazine 25 Mg Tab PO 100 mg QID JAGUAR Administration Sodium Chloride 1,000 mls @ 100 mls/hr 03/25/20 10:00 03/26/20 03:40 Normal Saline 0.9% IV 1,000 mls .Q10H JAGUAR Administration Insulin Human Lispro 0 units 03/21/20 15:14 03/23/20 17:29 Humalog 300 Units/3 Ml Vial SC 4 unit .MODERATE SLIDING SC PRN Administration Moderate Correctional Scale Isosorbide Dinitrate 20 mg 03/22/20 09:00 03/26/20 08:33 Isosorbide Dinitrate 20 Mg Tab PO 20 mg TID JAGUAR Administration Sodium Chloride 10 ml 03/22/20 21:00 03/26/20 08:40 Flush - Normal Saline 10 Ml Syringe IVF Not Given Q12HR JAGUAR Tamsulosin HCl 0.4 mg 03/26/20 09:00 03/26/20 08:33 Tamsulosin Hcl 0.4 Mg Cap PO 0.4 mg DAILY JAGUAR Administration - Exam General Appearance: NAD Heart: RRR, no murmur Respiratory: no wheezes, no rales, no ronchi Gastrointestinal: soft, non-tender, normal bowel sounds Extremities: no cyanosis, no clubbing, 1+ LE edema Extremities - other findings: bilateral edema Psychiatric: normal affect Hosp A/P (1) DEE (acute kidney injury) Code(s): N17.9 - ACUTE KIDNEY FAILURE, UNSPECIFIED Status: Acute (2) [place] (type) II atrioventricular block Code(s): I44.1 - ATRIOVENTRICULAR BLOCK, SECOND DEGREE Status: Resolved (3) CAD (coronary artery disease) Code(s): I25.10 - ATHSCL HEART DISEASE OF [place] CORONARY ARTERY W/O ANG PCTRS Status: Chronic Qualifiers: Coronary Disease-Associated Artery/Lesion type: [place] artery [place] vs. transplanted heart: [place] heart Associated angina: without angina Qualified Code(s): I25.10 - Atherosclerotic heart disease of [place] coronary artery without angina pectoris (4) CKD (chronic kidney disease) stage 3, GFR 30-59 ml/min Code(s): N18.3 - CHRONIC KIDNEY DISEASE, STAGE 3 (MODERATE) * DO NOT USE * Status: Chronic Qualifiers: Chronic kidney disease stage 3 subtype: stage 3a (GFR 45-59) Qualified Code(s): N18.31 - Chronic kidney disease, stage 3a (5) DM2 (diabetes mellitus, type 2) Status: Chronic Qualifiers: Diabetes mellitus jail insulin use: with jail use Diabetes mellitus complication status: with kidney complications Diabetes mellitus complication detail: with chronic kidney disease Chronic kidney disease stage: stage 3 (moderate) (6) HLD (hyperlipidemia) Code(s): E78.5 - HYPERLIPIDEMIA, UNSPECIFIED Status: Chronic Qualifiers: Hyperlipidemia type: unspecified Qualified Code(s): E78.5 - Hyperlipidemia, unspecified (7) HTN (hypertension) Code(s): I10 - ESSENTIAL (PRIMARY) HYPERTENSION Status: Chronic Qualifiers: Hypertension type: essential hypertension Qualified Code(s): I10 - Essential (primary) hypertension (8) Urinary retention Code(s): R33.9 - RETENTION OF URINE, UNSPECIFIED Status: Acute - Plan [place]itz type 2 AV block s/p pacmaker - per Dr. Ramirez - one lead dislodged, plan to repair today DEE with CKD - likely multifactorial - appreciate Nephrology consult - on IVF per Dr. Meeks Gross hematuria and urinary retention - appreciate Urology consult - clearing, will resume aspirin and plavix - can d/c cochran after 2 doses of medication - will need f/u with Urology as outpatient HTN -improved, hydralazine increased yesterday - losartan d/c 2 days ago due to renal function DM type 2 blood sugars controlled - hold on long-acting insulin. Pt had severe hypoglycemia yesterday. Constipation - bowel meds prn continue other meds as ordered dvt prophy - ambulatory gi prophy - not indicated code status full reviewed plan of care with patient, no questions or further needs at end of eval.
[2020-03-26] MEDS: Calcitriol 0.25 MCG CAP PO SCH (09:43)
[2020-03-26] MEDS: Aspirin Chewable 81 MG TAB PO SCH (12:22)
[2020-03-26] MEDS: Clopidogrel Bisulfate 75 MG TAB PO SCH (12:22)
[2020-03-26] MEDS: Dextrose 50% Abboject 50 ML SYRINGE SLOW IVP PRN (12:47)
--- NOTE | 2020-03-26 13:54 | PDOC.BPN ---
- Brief Progress Note Encounter Date: 03/26/20 Encounter Time: 13:52 RN states blood sugar in the 40's when recently checked and pt received an amp of D50. He is waiting to go for the procedure today and NPO. Will change fluids to D5NS until pt has completed the procedure and is able to take PO again. Then will change back to NS at rate specified by Dr. Meeks. Last long- acting insulin was yesterday morning.
[2020-03-26] MEDS ORDERED: Dextrose 5 % And 0.9 % NaCl 1,000 ML IV SCH (14:00)
[2020-03-26] MEDS ORDERED: CEFAZOLIN 1 GM VIAL ONE (16:36)
[2020-03-26] MEDS ORDERED: Gentamicin 80 MG/2 ML VIAL ONE (16:36)
[2020-03-26] MEDS ORDERED: Midazolam HCl 2 mg/2 ml Vial ONE (17:01)
[2020-03-26] MEDS ORDERED: Fentanyl 100 MCG/2 ML VIAL ONE (17:01)
[2020-03-26] MEDS: Atorvastatin Calcium 40 MG TAB PO SCH (21:55)
[2020-03-27 04:23] LABS: #Eosinphils 0.1 thou/uL (0.0-0.7); #Lymphocytes 1.5 thou/uL (1.20-3.40); #Monocytes 0.9 thou/uL (0.11-0.59); #Neutrophils 6.8 thou/uL (1.40-6.50); %Basophils 0.4 % (0.0-1.0); %Eosinophils 1.4 % (0.0-10.0); %Lymphocytes 16.3 % (21.0-51.0); %Monocytes 9.8 % (0.0-10.0); %Neutrophils 72.2 % (42.0-75.0); Hemoglobin 8.8 g/dL (14.0-18.0); Mean Corpuscular HGB CONC 31.5 g/dL (32.0-36.0); Mean Platelet Volume 8.8 fL (7.4-10.4); Platelet Count 197 thou/uL (130-400); Red Blood Cell (RBC) Count 3.15 mill/uL (4.70-6.10); White Blood Cell (WBC) Count 9.4 thou/uL (4.8-10.8)
[2020-03-27 04:45] LABS: Anion Gap 14 mmol/L (10-20); BUN (Urea Nitrogen) 38 mg/dL (8.4-25.7); Calc. Creatinine Clearance 39 mL/min (70-130); Calcium 7.9 mg/dL (7.8-10.44); Carbon Dioxide 22 mmol/L (23-31); Chloride 101 mmol/L (98-107); Glucose 248 mg/dL (83-110); Sodium 131 mmol/L (136-145)
[2020-03-27] MEDS: Cephalexin 250 MG CAP PO SCH ×4 (05:43→21:13)
[2020-03-27] MEDS: HumaLOG 300 UNITS/3 ML VIAL SC PRN (06:26)
--- NOTE | 2020-03-27 07:47 | RAD ---
Portable frontal chest radiograph: 03/27/2020 COMPARISON: 03/24/2020 HISTORY: Pacemaker lead revision FINDINGS: There is a stable left-sided dual lead pacing device. Cardiac silhouette is prominent. No p neumothorax or pleural fluid. No focal consolidation or alveolar edema. IMPRESSION: No acute findings.
[2020-03-27] MEDS: hydrALAZINE 25 MG TAB PO SCH ×4 (08:03→21:14)
[2020-03-27] MEDS: DULoxetine 30 MG CAP PO SCH ×2 (08:04→21:14)
[2020-03-27] MEDS: Ferrous Sulfate 325 MG TAB PO SCH ×2 (08:04→17:33)
[2020-03-27] MEDS: Gabapentin 300 MG CAP PO SCH ×2 (08:04→21:13)
[2020-03-27] MEDS: Amlodipine 5 MG TAB PO SCH ×2 (08:04→21:13)
[2020-03-27] MEDS: Calcitriol 0.25 MCG CAP PO SCH (08:04)
[2020-03-27] MEDS: Aspirin Chewable 81 MG TAB PO SCH (08:04)
[2020-03-27] MEDS: Carvedilol 6.25 MG TAB PO SCH ×2 (08:04→21:14)
[2020-03-27] MEDS: Famotidine 20 MG TAB PO SCH (08:04)
[2020-03-27] MEDS: Clopidogrel Bisulfate 75 MG TAB PO SCH (08:04)
[2020-03-27] MEDS: Isosorbide Dinitrate 20 MG TAB PO SCH ×3 (08:04→21:14)
[2020-03-27] MEDS: Tamsulosin HCl 0.4 MG CAP PO SCH (08:09)
[2020-03-27] MEDS: Acetaminophen/Codeine 30-300mg Tablet PO PRN ×2 (08:13→12:17)
--- NOTE | 2020-03-27 09:28 | PRG ---
DATE OF SERVICE: 03/27/2020 SUBJECTIVE: Mr. Abernathy is a 74-year-old black male, followed up by the Renal Service for his acute kidney injury on top of his chronic renal failure. He also underwent revision of his pacemaker lead placement. No new complaints today. He was noted to be mildly hyperkalemic today. OBJECTIVE: VITAL SIGNS: Blood pressure 141/67, heart rate 67, respiratory rate 18, temperature 98, and O2 saturation 99% on room air. GENERAL: The patient is awake, alert, sitting comfortable, not in distress. SKIN: Adequate turgor. HEENT: Slightly pale conjunctivae. Anicteric sclerae. No neck mass. No carotid bruits. No JVD. CHEST: No deformities. LUNGS: Clear breath sounds. HEART: Normal sinus rhythm. No murmurs, gallops, or rubs. ABDOMEN: Globular, soft, and nontender. No masses. EXTREMITIES: No edema. MEDICATIONS: March 27, 2020, reviewed. LABORATORY DATA: March 27, 2020; white count 9.4, hemoglobin 8.8. Sodium 131, potassium 6, chloride 101, carbon dioxide 22, BUN 38, creatinine 2.33, glucose 248, GFR 34 mL/minute, and calcium 7.9. ASSESSMENT AND PLAN: 1. Acute kidney injury on top of his chronic renal failure-superimposed prerenal azotemia. Slowly improving with gentle volume repletion. Please note, creatinine peaked at 2.92. It is currently 2.33. There is no indication for any dialytic intervention. Continue gentle volume repletion. 2. Anemia-ferrous sulfate was started. 3. Bradycardia-status post revision pacemaker. 4. We will be rechecking a CBC and basic metabolic profile in a.m. Job ID: [id number]
[2020-03-27] MEDS: Sodium Chloride 0.9% 1,000 ML IV SCH ×2 (09:47→21:11)
[2020-03-27 14:34] LABS: Anion Gap 13 mmol/L (10-20); BUN (Urea Nitrogen) 38 mg/dL (8.4-25.7); Calc. Creatinine Clearance 41 mL/min (70-130); Carbon Dioxide 23 mmol/L (23-31); Chloride 101 mmol/L (98-107); Glucose 184 mg/dL (83-110); Sodium 130 mmol/L (136-145)
[2020-03-27 14:43] LABS: Potassium 6.6 mmol/L (3.5-5.1)
[2020-03-27] MEDS ORDERED: Calcium Gluc 4.6 MEQ/10 ML (100 MG/ML) SLOW IVP SCH (15:43)
[2020-03-27] MEDS ORDERED: HumaLOG 300 UNITS/3 ML VIAL SC SCH (15:45)
--- NOTE | 2020-03-27 15:57 | PDOC.EP ---
- Subjective Date: 03/27/20 Time: 08:00 Interval History: s/p lead revision 03/26/2020. Feeling fair today. PPM incision is mildly tender but nothing severe. No cardiac events overnight. - Review of Systems Constitutional: denies: chills, fever, malaise Respiratory: denies: cough, dry, hemoptysis Cardiology: denies: chest pain, edema, heart racing Gastrointestinal: denies: abdominal pain, constipation, vomitting - Objective Allergies/Adverse Reactions: Allergies Allergy/AdvReac Type Severity Reaction Status Date / Time tramadol AdvReac decreased Verified 03/22/20 00:10 urinary output Current Medications Acetaminophen (Acetaminophen 325 Mg Tab) 650 mg PO Q4H PRN PRN Reason: Headache/Fever/Mild Pain (1-3) Last Admin: 03/22/20 19:52 Dose: 650 mg Documented by: Acetaminophen/Codeine Phosphate (Acetaminophen/Codeine 30-300mg Tablet) 1 tab PO Q4H PRN PRN Reason: Mild Pain (1-3) Last Admin: 03/23/20 20:08 Dose: 1 tab Documented by: Acetaminophen/Codeine Phosphate (Acetaminophen/Codeine 30-300mg Tablet) 2 tab PO Q4H PRN PRN Reason: Moderate Pain (4-6) Last Admin: 03/27/20 12:17 Dose: 2 tab Documented by: Amlodipine Besylate (Amlodipine 5 Mg Tab) 5 mg PO BID [facility] Last Admin: 03/27/20 08:04 Dose: 5 mg Documented by: Aspirin (Aspirin Chewable 81 Mg Tab) 81 mg PO DAILY [facility] Last Admin: 03/27/20 08:04 Dose: 81 mg Documented by: Atorvastatin Calcium (Atorvastatin Calcium 40 Mg Tab) 40 mg PO [facility] Last Admin: 03/26/20 21:55 Dose: 40 mg Documented by: Bisacodyl (Bisacodyl 10 Mg Supp) 10 mg CO DAILYPRN PRN PRN Reason: Constipation Calcitriol (Calcitriol 0.25 Mcg Cap) 0.25 mcg PO DAILY [facility] Last Admin: 03/27/20 08:04 Dose: 0.25 mcg Documented by: Carvedilol (Carvedilol 6.25 Mg Tab) 6.25 mg PO BID [facility] Last Admin: 03/27/20 08:04 Dose: 6.25 mg Documented by: Cephalexin (Cephalexin 250 Mg Cap) 500 mg PO Q6HR [facility] Stop: 03/30/20 23:59 Last Admin: 03/27/20 12:13 Dose: 500 mg Documented by: Clopidogrel Bisulfate (Clopidogrel Bisulfate 75 Mg Tab) 75 mg PO DAILY [facility] Last Admin: 03/27/20 08:04 Dose: 75 mg Documented by: Dextrose/Water (Dextrose 50% Abboject 50 Ml Syringe) 25 gm SLOW IVP PRN PRN PRN Reason: Hypoglycemia Last Admin: 03/26/20 12:47 Dose: 25 gm Documented by: Duloxetine HCl (Duloxetine 30 Mg Cap) 30 mg PO BID [facility] Last Admin: 03/27/20 08:04 Dose: 30 mg Documented by: Famotidine (Famotidine 20 Mg Tab) 20 mg PO DAILY [facility] Last Admin: 03/27/20 08:04 Dose: 20 mg Documented by: Ferrous Sulfate (Ferrous Sulfate 325 Mg Tab) 325 mg PO BID[facility] Last Admin: 03/27/20 08:04 Dose: 325 mg Documented by: Gabapentin (Gabapentin 300 Mg Cap) 600 mg PO BID [facility] Last Admin: 03/27/20 08:04 Dose: 600 mg Documented by: Glucagon (Glucagon 1 Mg/Ml Vial) 1 mg IM PRN PRN PRN Reason: Hypoglycemia Guaifenesin/Dextromethorphan (Guaifenesin Dm 100-10/5 Ml Udcup) 15 ml PO Q4H PRN PRN Reason: Cough Hydralazine HCl (Hydralazine 20 Mg/Ml Vial) 10 mg SLOW IVP Q6H PRN PRN Reason: SBP>150 Last Admin: 03/22/20 05:53 Dose: 10 mg Documented by: Hydralazine HCl (Hydralazine 25 Mg Tab) 100 mg PO QID [facility] Last Admin: 03/27/20 12:12 Dose: 100 mg Documented by: Hyoscyamine Sulfate (Hyoscyamine Sulfate 0.125 Mg Tab) 0.125 mg PO Q4H PRN PRN Reason: Bladder Spasms Dextrose/Water (D5w) 1,000 mls @ 0 mls/hr IV .Q0M PRN PRN Reason: Hypoglycemia Sodium Chloride (Normal Saline 0.9%) 1,000 mls @ 100 mls/hr IV .Q10H [facility] Last Admin: 03/27/20 09:47 Dose: Not Given Documented by: Calcium Gluconate 4.6 meq/ (Sodium Chloride) 110 mls @ 220 mls/hr IVPB NOW [facility] Stop: 03/27/20 18:00 Insulin Human Lispro (Humalog 300 Units/3 Ml Vial) 0 units SC .MODERATE SLIDING SC PRN PRN Reason: Moderate Correctional Scale Last Admin: 03/27/20 06:26 Dose: 4 unit Documented by: Insulin Human Lispro (Humalog 300 Units/3 Ml Vial) 0 units SC .BEDTIME SLIDING SC PRN PRN Reason: Bedtime Correctional Scale Insulin Human Lispro (Humalog 300 Units/3 Ml Vial) 5 units SC NOW [facility] Stop: 03/27/20 18:00 Isosorbide Dinitrate (Isosorbide Dinitrate 20 Mg Tab) 20 mg PO TID [facility] Last Admin: 03/27/20 08:04 Dose: 20 mg Documented by: Lactulose (Lactulose 20 Gm/30 Ml Udcup) 20 gm PO DAILYPRN PRN PRN Reason: Constipation Ondansetron HCl (Ondansetron Pf 4 Mg/2 Ml Vial) 4 mg IVP Q6H PRN PRN Reason: Nausea/Vomiting Polyethylene Glycol (Polyethylene Glycol 3350 17 Gm Packet) 17 gm PO DAILYPRN PRN PRN Reason: Constipation Senna/Docusate Sodium (Senokot S 8.6-50 Mg Tab) 2 tab PO BIDPRN PRN PRN Reason: Constipation Sodium Chloride (Flush - Normal Saline 10 Ml Syringe) 10 ml IVF Q12HR [facility] Last Admin: 03/27/20 08:05 Dose: Not Given Documented by: Sodium Chloride (Flush - Normal Saline 10 Ml Syringe) 10 ml IVF PRN PRN PRN Reason: Saline Flush Sodium Polystyrene Sulfonate (Sodium Polystyrene Sulfonate 15 Gm/60 Ml Bot) 30 gm PO NOW [facility] Stop: 03/27/20 18:00 Tamsulosin HCl (Tamsulosin Hcl 0.4 Mg Cap) 0.4 mg PO DAILY [facility] Last Admin: 03/27/20 08:09 Dose: 0.4 mg Documented by: Vital Signs & Weight: Vital Signs Temp Pulse Resp BP Pulse Ox 03/27/20 11:16 97.9 F 63 22 H 150/72 H 99 03/27/20 07:20 98.0 F 67 18 141/67 H 99 03/27/20 04:00 98.1 F 70 18 131/60 99 Weight 213 lb 14.4 oz I/O: I/O 03/26/20 03/27/20 03/28/20 06:59 06:59 06:59 Intake Total 3020 1700 Output Total 1800 1650 200 Balance 1220 50 -200 - Physical Exam General: alert & oriented x3, appears well, no apparent distress, speech clear, affect appropriate HEENT: mucus membranes moist, normocephaly Neck: supple neck, midline trachea, no JVD/HJR, no masses, no bruit, no lymphadenopathy, no thromegaly Cardiology: regular rate and rhythm, no murmur, regular rate, regular rhythm, PMI nondisplaced Neurology: cranial nerve 2-12 intact, grossly intact, sensory function intact Abdomen: unremarkable, active bowel sounds, no pulsations/bruits Extremities: dry, strong pulses, warm Skin: device site stable w/o swelling, left sided device. negative: bruising, drainage, erosion, hematoma - Labs Result Diagrams: 03/27/20 03:53 03/27/20 13:25 - EKG Interpretation EKG Method: Telemetry EKG shows: Sinus rhythm - Assessment/Plan Assessment/Plan: 1. Sick sinus syndrome -s/p PPM implant 03/23/2020 requiring RV lead revision 03/26/2020 2. Hx CAD 3. HTN 4. Fatigue PPM check this AM is stable after lead revision yesterday. AV paced at night with bradycardia and occasional 2nd degree block. Significantly less ventricular pacing during the day. Continue keflex x7 days post implant as ordered. CXR post implant stable/ no pneumothorax. EP signing off, OK for DC. 2 wk follow up will be arranged.
[2020-03-27] MEDS ORDERED: Calcium Gluconate 4.6 MEQ in Sodium Chloride 0.9% 100 ML IVPB SCH (16:00)
[2020-03-27 19:41] LABS: Anion Gap 17 mmol/L (10-20); BUN (Urea Nitrogen) 41 mg/dL (8.4-25.7); Calc. Creatinine Clearance 38 mL/min (70-130); Calcium 8.4 mg/dL (7.8-10.44); Carbon Dioxide 17 mmol/L (23-31); Chloride 102 mmol/L (98-107); Glucose 174 mg/dL (83-110); Potassium 5.5 mmol/L (3.5-5.1); Sodium 130 mmol/L (136-145)
[2020-03-27] MEDS: Atorvastatin Calcium 40 MG TAB PO SCH (21:14)
[2020-03-28] MEDS: Sodium Chloride 0.9% 1,000 ML IV SCH (03:48)
[2020-03-28] MEDS: Cephalexin 250 MG CAP PO SCH ×4 (05:27→23:55)
[2020-03-28] MEDS: HumaLOG 300 UNITS/3 ML VIAL SC PRN ×2 (06:17→18:09)
[2020-03-28] MEDS ORDERED: Furosemide 40 MG TAB PO SCH (08:30)
--- NOTE | 2020-03-28 08:47 | PRG ---
DATE OF SERVICE: 03/28/2020 SUBJECTIVE: Mr. Abernathy is a 74-year-old black male, admitted for bradycardia. He had a revision of his pacemaker. In addition, the patient was seen by the Renal Service for his acute kidney injury on top of his chronic renal failure. He has received IV volume repletion. The patient is now complaining of generalized edema. He is declining IV fluids. No complaints of chest pain or shortness of breath. He is also complaining about the number of pills he has to take at night. OBJECTIVE: VITAL SIGNS: Blood pressure 116/70, heart rate 94, respiratory rate 18, temperature 98.9, O2 saturation 100% on room air. GENERAL: The patient is awake, alert, comfortable, not in overt distress. SKIN: Adequate turgor. HEENT: Slightly pale conjunctivae. Anicteric sclerae. No neck mass. No carotid bruits. No JVD. CHEST: No deformities. LUNGS: Clear breath sounds. No wheezing. No crackles. HEART: Normal sinus rhythm. No murmur. No gallops. No rubs. ABDOMEN: Globular, soft, nontender. No masses. EXTREMITIES: Trace edema. MEDICATIONS: Medications of March 28, 2020, reviewed. LABORATORY DATA: Laboratories of March 27, 2020; white count 9.4, hemoglobin 8.8. On March 27, 2020; sodium 130, potassium 5.5, chloride 102, carbon dioxide 17, BUN 41, creatinine 2.4, calcium 8.4. ASSESSMENT AND PLAN: 1. Chronic renal failure/acute kidney injury. Stabilizing renal function. Last creatinine was 2.4. No indication for any dialytic intervention. Due to the generalized edema, we will give a one time dose of Lasix 40 mg tab now. The patient declining to have a Hep-Lock placed. 2. Hyperkalemia-improved with intervention. 3. Will also be discontinuing the patient's IV fluid for the moment. 4. Bradycardia-status post pacemaker placement and revision of the pacemaker. 5. We will recheck CBC and basic metabolic profile in a.m. ADDENDUM: 1. Generalized edema. We will hold off the gabapentin for the moment. If edema still persistent, consider decreasing hydralazine, changing it to another BP medication. 2. Recheck CBC and basic metabolic profile in a.m. Job ID: [id number]
--- NOTE | 2020-03-28 10:28 | PDOC.EP ---
- Subjective Date: 03/28/20 Time: 10:25 Interval History: Struggling with fluid retention/edema and urinary issues. No major cardiac events. - Review of Systems Constitutional: denies: chills, fever, malaise, sweats, weakness Respiratory: reports: shortness of breath. denies: cough, dry, hemoptysis, pleuritic pain Cardiology: reports: edema. denies: chest pain, heart racing, light headedness, orthopnea, paroxysmal noc. dyspnea Gastrointestinal: denies: abdominal pain, constipation, diarrhea Musculoskeletal: denies: falls, neck pain, shoulder pain - Objective Allergies/Adverse Reactions: Allergies Allergy/AdvReac Type Severity Reaction Status Date / Time tramadol AdvReac decreased Verified 03/22/20 00:10 urinary output Current Medications Acetaminophen (Acetaminophen 325 Mg Tab) 650 mg PO Q4H PRN PRN Reason: Headache/Fever/Mild Pain (1-3) Last Admin: 03/22/20 19:52 Dose: 650 mg Documented by: Acetaminophen/Codeine Phosphate (Acetaminophen/Codeine 30-300mg Tablet) 1 tab PO Q4H PRN PRN Reason: Mild Pain (1-3) Last Admin: 03/23/20 20:08 Dose: 1 tab Documented by: Acetaminophen/Codeine Phosphate (Acetaminophen/Codeine 30-300mg Tablet) 2 tab PO Q4H PRN PRN Reason: Moderate Pain (4-6) Last Admin: 03/27/20 12:17 Dose: 2 tab Documented by: Aspirin (Aspirin Chewable 81 Mg Tab) 81 mg PO DAILY [facility] Last Admin: 03/27/20 08:04 Dose: 81 mg Documented by: Atorvastatin Calcium (Atorvastatin Calcium 40 Mg Tab) 40 mg PO HS [facility] Last Admin: 03/27/20 21:14 Dose: 40 mg Documented by: Bisacodyl (Bisacodyl 10 Mg Supp) 10 mg MA DAILYPRN PRN PRN Reason: Constipation Calcitriol (Calcitriol 0.25 Mcg Cap) 0.25 mcg PO DAILY [facility] Last Admin: 03/27/20 08:04 Dose: 0.25 mcg Documented by: Carvedilol (Carvedilol 6.25 Mg Tab) 6.25 mg PO BID [facility] Last Admin: 03/27/20 21:14 Dose: 6.25 mg Documented by: Cephalexin (Cephalexin 250 Mg Cap) 500 mg PO Q6HR [facility] Stop: 04/01/20 23:59 Last Admin: 03/28/20 05:27 Dose: 500 mg Documented by: Clonidine (Clonidine 0.1 Mg Tab) 0.1 mg PO BID [facility] Clopidogrel Bisulfate (Clopidogrel Bisulfate 75 Mg Tab) 75 mg PO DAILY [facility] Last Admin: 03/27/20 08:04 Dose: 75 mg Documented by: Dextrose/Water (Dextrose 50% Abboject 50 Ml Syringe) 25 gm SLOW IVP PRN PRN PRN Reason: Hypoglycemia Last Admin: 03/26/20 12:47 Dose: 25 gm Documented by: Duloxetine HCl (Duloxetine 30 Mg Cap) 30 mg PO BID [facility] Last Admin: 03/27/20 21:14 Dose: 30 mg Documented by: Famotidine (Famotidine 20 Mg Tab) 20 mg PO DAILY [facility] Last Admin: 03/27/20 08:04 Dose: 20 mg Documented by: Ferrous Sulfate (Ferrous Sulfate 325 Mg Tab) 325 mg PO BID[facility] Last Admin: 03/27/20 17:33 Dose: 325 mg Documented by: Glucagon (Glucagon 1 Mg/Ml Vial) 1 mg IM PRN PRN PRN Reason: Hypoglycemia Guaifenesin/Dextromethorphan (Guaifenesin Dm 100-10/5 Ml Udcup) 15 ml PO Q4H PRN PRN Reason: Cough Hydralazine HCl (Hydralazine 20 Mg/Ml Vial) 10 mg SLOW IVP Q6H PRN PRN Reason: SBP>150 Last Admin: 03/22/20 05:53 Dose: 10 mg Documented by: Hydralazine HCl (Hydralazine 25 Mg Tab) 100 mg PO TID [facility] Hyoscyamine Sulfate (Hyoscyamine Sulfate 0.125 Mg Tab) 0.125 mg PO Q4H PRN PRN Reason: Bladder Spasms Dextrose/Water (D5w) 1,000 mls @ 0 mls/hr IV .Q0M PRN PRN Reason: Hypoglycemia Insulin Human Lispro (Humalog 300 Units/3 Ml Vial) 0 units SC .MODERATE SLIDING SC PRN PRN Reason: Moderate Correctional Scale Last Admin: 03/28/20 06:17 Dose: 4 unit Documented by: Insulin Human Lispro (Humalog 300 Units/3 Ml Vial) 0 units SC .BEDTIME SLIDING SC PRN PRN Reason: Bedtime Correctional Scale Isosorbide Dinitrate (Isosorbide Dinitrate 20 Mg Tab) 20 mg PO TID [facility] Last Admin: 03/27/20 21:14 Dose: 20 mg Documented by: Lactulose (Lactulose 20 Gm/30 Ml Udcup) 20 gm PO DAILYPRN PRN PRN Reason: Constipation Ondansetron HCl (Ondansetron Pf 4 Mg/2 Ml Vial) 4 mg IVP Q6H PRN PRN Reason: Nausea/Vomiting Polyethylene Glycol (Polyethylene Glycol 3350 17 Gm Packet) 17 gm PO DAILYPRN PRN PRN Reason: Constipation Senna/Docusate Sodium (Senokot S 8.6-50 Mg Tab) 2 tab PO BIDPRN PRN PRN Reason: Constipation Sodium Chloride (Flush - Normal Saline 10 Ml Syringe) 10 ml IVF Q12HR [facility] Last Admin: 03/27/20 21:15 Dose: 10 ml Documented by: Sodium Chloride (Flush - Normal Saline 10 Ml Syringe) 10 ml IVF PRN PRN PRN Reason: Saline Flush Tamsulosin HCl (Tamsulosin Hcl 0.4 Mg Cap) 0.4 mg PO DAILY [facility] Last Admin: 03/27/20 08:09 Dose: 0.4 mg Documented by: Vital Signs & Weight: Vital Signs Temp Pulse Resp BP BP Pulse Ox 03/28/20 07:43 98.9 F 94 18 160/70 H 100 03/28/20 04:00 99.0 F 87 20 133/62 97 Weight 213 lb 14.4 oz I/O: I/O 03/27/20 03/28/20 03/29/20 06:59 06:59 06:59 Intake Total 1700 1810 Output Total 1650 400 Balance 50 1410 - Physical Exam General: alert & oriented x3, appears well, no apparent distress HEENT: mucus membranes moist, normocephaly, EOMI Neck: supple neck, midline trachea, no JVD/HJR Cardiology: regular rate and rhythm, no murmur, regular rate Lungs: clear to auscultation, normal breath sounds, no rhonchi Neurology: cranial nerve 2-12 intact, grossly intact, coordination normal Abdomen: unremarkable, active bowel sounds, HJR negative Extremities: dry, strong pulses, warm Skin: device site stable w/o swelling - Labs Result Diagrams: 03/27/20 03:53 03/27/20 19:23 - EKG Interpretation EKG Method: Telemetry EKG shows: Sinus rhythm (AV pacing) - Device Device: dual, pacemaker Device Result: Udextronic - Assessment/Plan Assessment/Plan: 1. Sick sinus syndrome -s/p PPM implant 03/23/2020 requiring RA lead revision 03/26/2020 2. Hx CAD 3. HTN 4. Fatigue 5. Edema 6. DEE Edematous today. continues to have a fair amount of RV pacing. Will have device interrogated and try to minimize RV pacing with programming changes in case this is contributing to his fluid retention.
[2020-03-28] MEDS: Aspirin Chewable 81 MG TAB PO SCH (10:56)
[2020-03-28] MEDS: hydrALAZINE 25 MG TAB PO SCH ×3 (10:57→20:53)
[2020-03-28] MEDS: Acetaminophen/Codeine 30-300mg Tablet PO PRN (10:58)
[2020-03-28] MEDS: Isosorbide Dinitrate 20 MG TAB PO SCH ×3 (10:59→20:53)
[2020-03-28] MEDS: Ferrous Sulfate 325 MG TAB PO SCH ×2 (10:59→18:09)
[2020-03-28] MEDS: DULoxetine 30 MG CAP PO SCH ×2 (10:59→20:53)
[2020-03-28] MEDS: Calcitriol 0.25 MCG CAP PO SCH (10:59)
[2020-03-28] MEDS: cloNIDine 0.1 MG TAB PO SCH ×2 (10:59→20:54)
[2020-03-28] MEDS: Tamsulosin HCl 0.4 MG CAP PO SCH (10:59)
[2020-03-28] MEDS: Clopidogrel Bisulfate 75 MG TAB PO SCH (10:59)
[2020-03-28] MEDS: Famotidine 20 MG TAB PO SCH (11:00)
[2020-03-28] MEDS: Carvedilol 6.25 MG TAB PO SCH ×2 (11:00→20:54)
[2020-03-28 13:14] LABS: #Eosinphils 0.3 thou/uL (0.0-0.7); #Lymphocytes 1.7 thou/uL (1.20-3.40); #Monocytes 0.9 thou/uL (0.11-0.59); #Neutrophils 5.6 thou/uL (1.40-6.50); %Basophils 0.5 % (0.0-1.0); %Eosinophils 3.4 % (0.0-10.0); %Lymphocytes 20.1 % (21.0-51.0); %Monocytes 10.7 % (0.0-10.0); %Neutrophils 65.3 % (42.0-75.0); Hemoglobin 8.8 g/dL (14.0-18.0); Mean Corpuscular HGB CONC 32.2 g/dL (32.0-36.0); Mean Corpuscular Hemoglobin 27.9 pg (27.0-31.0); Mean Corpuscular Volume 86.6 fL (78.0-98.0); Mean Platelet Volume 8.4 fL (7.4-10.4); Platelet Count 206 thou/uL (130-400); Red Blood Cell (RBC) Count 3.16 mill/uL (4.70-6.10); White Blood Cell (WBC) Count 8.5 thou/uL (4.8-10.8)
[2020-03-28 13:38] LABS: ALT (SGPT) 13 U/L (8-55); AST (SGOT) 28 U/L (5-34); Albumin 2.9 g/dL (3.4-4.8); Alkaline Phosphatase 76 U/L (40-110); Anion Gap 15 mmol/L (10-20); BUN (Urea Nitrogen) 41 mg/dL (8.4-25.7); Bilirubin, Total 0.2 mg/dL (0.2-1.2); Calc. Creatinine Clearance 40 mL/min (70-130); Carbon Dioxide 22 mmol/L (23-31); Chloride 98 mmol/L (98-107); Globulin 3.2 g/dL (2.4-3.5); Glucose 214 mg/dL (83-110); Magnesium 1.9 mg/dL (1.6-2.6); Protein, Total 6.1 g/dL (5.8-8.1); Sodium 129 mmol/L (136-145)
[2020-03-28] MEDS ORDERED: Albuterol Sulfate 1.25 MG/3 ML NEB NEB SCH (18:15)
[2020-03-28] MEDS: Dextrose 50% Abboject 50 ML SYRINGE SLOW IVP SCH ×2 (19:38→20:50)
[2020-03-28] MEDS: Insulin Regular 300 UNITS/3 ML VIAL IVP SCH ×2 (19:39→20:49)
--- NOTE | 2020-03-28 19:49 | PDOC.EVN ---
Event Note - Event Note Event Note: Notified by RN, patient hyperkalemic but refusing ALL interventions and medications. Does not want to be given any medicines regardless of the route (P.O, subcutaneous, nor IV). Refusing care. He is AO x 4, fully compos mentis.
[2020-03-28] MEDS: Atorvastatin Calcium 40 MG TAB PO SCH (20:54)
[2020-03-28 22:34] LABS: Potassium 4.8 mmol/L (3.5-5.1)
[2020-03-29 04:59] LABS: #Eosinphils 0.3 thou/uL (0.0-0.7); #Lymphocytes 1.8 thou/uL (1.20-3.40); #Monocytes 0.8 thou/uL (0.11-0.59); #Neutrophils 3.3 thou/uL (1.40-6.50); %Basophils 0.4 % (0.0-1.0); %Eosinophils 4.3 % (0.0-10.0); %Lymphocytes 29.1 % (21.0-51.0); %Monocytes 12.4 % (0.0-10.0); %Neutrophils 53.9 % (42.0-75.0); Hemoglobin 8.3 g/dL (14.0-18.0); Mean Corpuscular HGB CONC 31.5 g/dL (32.0-36.0); Mean Corpuscular Hemoglobin 27.5 pg (27.0-31.0); Mean Corpuscular Volume 87.1 fL (78.0-98.0); Mean Platelet Volume 8.6 fL (7.4-10.4); Platelet Count 193 thou/uL (130-400); RBC Distribution Width 11.8 % (11.5-14.5); Red Blood Cell (RBC) Count 3.04 mill/uL (4.70-6.10); White Blood Cell (WBC) Count 6.1 thou/uL (4.8-10.8)
[2020-03-29 05:19] LABS: Anion Gap 14 mmol/L (10-20); BUN (Urea Nitrogen) 39 mg/dL (8.4-25.7); Calc. Creatinine Clearance 43 mL/min (70-130); Calcium 7.8 mg/dL (7.8-10.44); Carbon Dioxide 22 mmol/L (23-31); Chloride 99 mmol/L (98-107); Glucose 182 mg/dL (83-110); Potassium 5.2 mmol/L (3.5-5.1); Sodium 130 mmol/L (136-145)
[2020-03-29] MEDS: Cephalexin 250 MG CAP PO SCH ×3 (05:40→17:22)
[2020-03-29] MEDS: HumaLOG 300 UNITS/3 ML VIAL SC PRN ×3 (06:14→18:32)
--- NOTE | 2020-03-29 08:42 | PDOC.HOSPP ---
- Subjective Encounter Date: 03/28/20 Encounter Time: 10:00 Subjective: Patient up in bed feels that he is significantly swollen. - Objective Vital Signs & Weight: Vital Signs (12 hours) Temp Pulse Resp BP BP Pulse Ox 03/29/20 07:18 98.6 F 83 16 151/72 H 99 03/29/20 04:00 98.4 F 91 13 168/89 H 98 03/29/20 00:00 138/68 Weight Weight 220 lb I&O: 03/28/20 03/29/20 03/30/20 06:59 06:59 06:59 Intake Total 1810 340 Output Total 400 5376 550 Balance 4689 -5748 -372 Result Diagrams: 03/29/20 04:23 03/29/20 04:23 Additional Labs: Accuchecks 03/28/20 03/28/20 03/28/20 20:55 16:54 11:20 POC Glucose 215 H 172 H 219 H Hospitalist ROS - Review of Systems Respiratory: denies: cough, dry, shortness of breath, hemoptysis, SOB with excertion, pleuritic pain, sputum, wheezing, other Cardiovascular: denies: chest pain, palpitations, orthopnea, paroxysmal noc. dyspnea, edema, light headedness, other Gastrointestinal: denies: nausea, vomiting, abdominal pain, diarrhea, constipation, melena, hematochezia, other Genitourinary: denies: dysuria, frequency, incontinence, hematuria, retention, other - Medication Medications: Active Medications Generic Name Dose Route Start Last Admin Trade Name Freq PRN Reason Stop Dose Admin Acetaminophen 650 mg 03/21/20 15:14 03/22/20 19:52 Acetaminophen 325 Mg Tab PO 650 mg Q4H PRN Administration Headache/Fever/Mild Pain (1-3) Acetaminophen/Codeine Phosphate 1 tab 03/23/20 14:40 03/23/20 20:08 Acetaminophen/Codeine 30-300mg Tablet PO 1 tab Q4H PRN Administration Mild Pain (1-3) Acetaminophen/Codeine Phosphate 2 tab 03/23/20 14:40 03/28/20 10:58 Acetaminophen/Codeine 30-300mg Tablet PO 2 tab Q4H PRN Administration Moderate Pain (4-6) Aspirin 81 mg 03/22/20 09:00 03/28/20 10:56 Aspirin Chewable 81 Mg Tab PO 81 mg DAILY [facility] Administration Atorvastatin Calcium 40 mg 03/21/20 21:00 03/28/20 20:54 Atorvastatin Calcium 40 Mg Tab PO 40 mg HS [facility] Administration Calcitriol 0.25 mcg 03/26/20 09:00 03/28/20 10:59 Calcitriol 0.25 Mcg Cap PO 0.25 mcg DAILY [facility] Administration Carvedilol 6.25 mg 03/24/20 21:00 03/28/20 20:54 Carvedilol 6.25 Mg Tab PO 6.25 mg BID [facility] Administration Cephalexin 500 mg 03/23/20 18:00 03/29/20 05:40 Cephalexin 250 Mg Cap PO 04/01/20 23:59 500 mg Q6HR [facility] Administration Clonidine 0.1 mg 03/28/20 09:00 03/28/20 20:54 Clonidine 0.1 Mg Tab PO 0.1 mg BID [facility] Administration Clopidogrel Bisulfate 75 mg 03/22/20 09:00 03/28/20 10:59 Clopidogrel Bisulfate 75 Mg Tab PO 75 mg DAILY [facility] Administration Dextrose/Water 25 gm 03/21/20 15:14 03/26/20 12:47 Dextrose 50% Abboject 50 Ml Syringe SLOW IVP 25 gm PRN PRN Administration Hypoglycemia Duloxetine HCl 30 mg 03/21/20 21:00 03/28/20 20:53 Duloxetine 30 Mg Cap PO 30 mg BID [facility] Administration Famotidine 20 mg 03/23/20 09:00 03/28/20 11:00 Famotidine 20 Mg Tab PO 20 mg DAILY [facility] Administration Ferrous Sulfate 325 mg 03/25/20 17:00 03/28/20 18:09 Ferrous Sulfate 325 Mg Tab PO 325 mg BID-[facility] Administration Hydralazine HCl 10 mg 03/22/20 05:38 03/22/20 05:53 Hydralazine 20 Mg/Ml Vial SLOW IVP 10 mg Q6H PRN Administration SBP>150 Hydralazine HCl 100 mg 03/28/20 09:00 03/28/20 20:53 Hydralazine 25 Mg Tab PO 100 mg TID [facility] Administration Insulin Human Lispro 0 units 03/21/20 15:14 03/29/20 06:14 Humalog 300 Units/3 Ml Vial SC 2 unit .MODERATE SLIDING SC PRN Administration Moderate Correctional Scale Isosorbide Dinitrate 20 mg 03/22/20 09:00 03/28/20 20:53 Isosorbide Dinitrate 20 Mg Tab PO 20 mg TID [facility] Administration Sodium Chloride 10 ml 03/22/20 21:00 03/28/20 20:58 Flush - Normal Saline 10 Ml Syringe IVF 10 ml Q12HR [facility] Administration Tamsulosin HCl 0.4 mg 03/26/20 09:00 03/28/20 10:59 Tamsulosin Hcl 0.4 Mg Cap PO 0.4 mg DAILY [facility] Administration - Exam Heart: negative: RRR, no murmur, no gallops, no rubs, normal peripheral pulses, irregular, diminshed peripheral pulses, murmur present, II/IV, III/IV Respiratory: negative: CTAB, no wheezes, no rales, no ronchi, normal chest expansion, no tachypnea, normal percussion, rales, rhonchi, tachypneic, wheezes Gastrointestinal: negative: soft, non-tender, non-distended, normal bowel sounds, no palpable masses, no hepatomegaly, no splenomegaly, no bruit, no guarding, no rigidity, tender to palpation, distended, diminished bowl sounds, voluntary guarding Extremities: 2+ LE edema Hosp A/P (1) Hyperkalemia Code(s): E87.5 - HYPERKALEMIA Status: Acute (2) Urinary retention Code(s): R33.9 - RETENTION OF URINE, UNSPECIFIED Status: Acute (3) [place] (type) II atrioventricular block Code(s): I44.1 - ATRIOVENTRICULAR BLOCK, SECOND DEGREE Status: Resolved (4) DEE (acute kidney injury) Code(s): N17.9 - ACUTE KIDNEY FAILURE, UNSPECIFIED Status: Acute (5) CKD (chronic kidney disease) stage 3, GFR 30-59 ml/min Code(s): N18.3 - CHRONIC KIDNEY DISEASE, STAGE 3 (MODERATE) * DO NOT USE * Status: Chronic Qualifiers: Chronic kidney disease stage 3 subtype: stage 3a (GFR 45-59) Qualified Code(s): N18.31 - Chronic kidney disease, stage 3a (6) DM2 (diabetes mellitus, type 2) Status: Chronic Qualifiers: Diabetes mellitus residential insulin use: with residential use Diabetes mellitus complication status: with kidney complications Diabetes mellitus complication detail: with chronic kidney disease Chronic kidney disease stage: stage 3 (moderate) (7) HLD (hyperlipidemia) Code(s): E78.5 - HYPERLIPIDEMIA, UNSPECIFIED Status: Chronic Qualifiers: Hyperlipidemia type: unspecified Qualified Code(s): E78.5 - Hyperlipidemia, unspecified - Plan We will talk to nephrology patient has significant upper extremity swelling. Avoid nephrotoxins. We will recheck blood work and treat the hyperkalemia. Status post pacemaker with lead reversion. 03/28 patient refusing treatment for hyperkalemia and also did not want his labs to be checked today. I did explain to the patient in details he has agreed to g et his blood work checked today. We will continue to follow along his fluids have been discontinued. I have asked the patient to get up and move around. Patient was given diuretics by nephrology today.
--- NOTE | 2020-03-29 08:44 | PDOC.HOSPP ---
- Subjective Encounter Date: 03/27/20 Encounter Time: 11:15 Subjective: Patient up in bed denies any complaints. - Objective Vital Signs & Weight: Vital Signs (12 hours) Temp Pulse Resp BP BP Pulse Ox 03/29/20 07:18 98.6 F 83 16 151/72 H 99 03/29/20 04:00 98.4 F 91 13 168/89 H 98 03/29/20 00:00 138/68 Weight Weight 220 lb I&O: 03/28/20 03/29/20 03/30/20 06:59 06:59 06:59 Intake Total 1810 340 Output Total 400 1775 550 Balance 0613 -8732 -210 Result Diagrams: 03/29/20 04:23 03/29/20 04:23 Additional Labs: Accuchecks 03/28/20 03/28/20 03/28/20 20:55 16:54 11:20 POC Glucose 215 H 172 H 219 H Hospitalist ROS - Review of Systems Cardiovascular: denies: chest pain, palpitations, orthopnea, paroxysmal noc. dyspnea, edema, light headedness, other Gastrointestinal: denies: nausea, vomiting, abdominal pain, diarrhea, constipation, melena, hematochezia, other Genitourinary: denies: dysuria, frequency, incontinence, hematuria, retention, other - Medication Medications: Active Medications Generic Name Dose Route Start Last Admin Trade Name Freq PRN Reason Stop Dose Admin Acetaminophen 650 mg 03/21/20 15:14 03/22/20 19:52 Acetaminophen 325 Mg Tab PO 650 mg Q4H PRN Administration Headache/Fever/Mild Pain (1-3) Acetaminophen/Codeine Phosphate 1 tab 03/23/20 14:40 03/23/20 20:08 Acetaminophen/Codeine 30-300mg Tablet PO 1 tab Q4H PRN Administration Mild Pain (1-3) Acetaminophen/Codeine Phosphate 2 tab 03/23/20 14:40 03/28/20 10:58 Acetaminophen/Codeine 30-300mg Tablet PO 2 tab Q4H PRN Administration Moderate Pain (4-6) Aspirin 81 mg 03/22/20 09:00 03/28/20 10:56 Aspirin Chewable 81 Mg Tab PO 81 mg DAILY [facility] Administration Atorvastatin Calcium 40 mg 03/21/20 21:00 03/28/20 20:54 Atorvastatin Calcium 40 Mg Tab PO 40 mg HS [facility] Administration Calcitriol 0.25 mcg 03/26/20 09:00 03/28/20 10:59 Calcitriol 0.25 Mcg Cap PO 0.25 mcg DAILY [facility] Administration Carvedilol 6.25 mg 03/24/20 21:00 03/28/20 20:54 Carvedilol 6.25 Mg Tab PO 6.25 mg BID [facility] Administration Cephalexin 500 mg 03/23/20 18:00 03/29/20 05:40 Cephalexin 250 Mg Cap PO 04/01/20 23:59 500 mg Q6HR [facility] Administration Clonidine 0.1 mg 03/28/20 09:00 03/28/20 20:54 Clonidine 0.1 Mg Tab PO 0.1 mg BID [facility] Administration Clopidogrel Bisulfate 75 mg 03/22/20 09:00 03/28/20 10:59 Clopidogrel Bisulfate 75 Mg Tab PO 75 mg DAILY [facility] Administration Dextrose/Water 25 gm 03/21/20 15:14 03/26/20 12:47 Dextrose 50% Abboject 50 Ml Syringe SLOW IVP 25 gm PRN PRN Administration Hypoglycemia Duloxetine HCl 30 mg 03/21/20 21:00 03/28/20 20:53 Duloxetine 30 Mg Cap PO 30 mg BID [facility] Administration Famotidine 20 mg 03/23/20 09:00 03/28/20 11:00 Famotidine 20 Mg Tab PO 20 mg DAILY [facility] Administration Ferrous Sulfate 325 mg 03/25/20 17:00 03/28/20 18:09 Ferrous Sulfate 325 Mg Tab PO 325 mg BID-WM [facility] Administration Hydralazine HCl 10 mg 03/22/20 05:38 03/22/20 05:53 Hydralazine 20 Mg/Ml Vial SLOW IVP 10 mg Q6H PRN Administration SBP>150 Hydralazine HCl 100 mg 03/28/20 09:00 03/28/20 20:53 Hydralazine 25 Mg Tab PO 100 mg TID [facility] Administration Insulin Human Lispro 0 units 03/21/20 15:14 03/29/20 06:14 Humalog 300 Units/3 Ml Vial SC 2 unit .MODERATE SLIDING SC PRN Administration Moderate Correctional Scale Isosorbide Dinitrate 20 mg 03/22/20 09:00 03/28/20 20:53 Isosorbide Dinitrate 20 Mg Tab PO 20 mg TID [facility] Administration Sodium Chloride 10 ml 03/22/20 21:00 03/28/20 20:58 Flush - Normal Saline 10 Ml Syringe IVF 10 ml Q12HR [facility] Administration Tamsulosin HCl 0.4 mg 03/26/20 09:00 03/28/20 10:59 Tamsulosin Hcl 0.4 Mg Cap PO 0.4 mg DAILY [facility] Administration - Exam Respiratory: negative: CTAB, no wheezes, no rales, no ronchi, normal chest expansion, no tachypnea, normal percussion, rales, rhonchi, tachypneic, wheezes Gastrointestinal: negative: soft, non-tender, non-distended, normal bowel sounds, no palpable masses, no hepatomegaly, no splenomegaly, no bruit, no guarding, no rigidity, tender to palpation, distended, diminished bowl sounds, voluntary guarding Extremities: 2+ LE edema Hosp A/P (1) Hyperkalemia Code(s): E87.5 - HYPERKALEMIA Status: Acute (2) Urinary retention Code(s): R33.9 - RETENTION OF URINE, UNSPECIFIED Status: Acute (3) CAD (coronary artery disease) Code(s): I25.10 - ATHSCL HEART DISEASE OF [place] CORONARY ARTERY W/O ANG PCTRS Status: Chronic Qualifiers: Coronary Disease-Associated Artery/Lesion type: [place] artery [place] vs. transplanted heart: [place] heart Associated angina: without angina Qualified Code(s): I25.10 - Atherosclerotic heart disease of [place] coronary artery without angina pectoris (4) Mobitz (type) II atrioventricular block Code(s): I44.1 - ATRIOVENTRICULAR BLOCK, SECOND DEGREE Status: Resolved (5) DEE (acute kidney injury) Code(s): N17.9 - ACUTE KIDNEY FAILURE, UNSPECIFIED Status: Acute (6) CKD (chronic kidney disease) stage 3, GFR 30-59 ml/min Code(s): N18.3 - CHRONIC KIDNEY DISEASE, STAGE 3 (MODERATE) * DO NOT USE * Status: Chronic Qualifiers: Chronic kidney disease stage 3 subtype: stage 3a (GFR 45-59) Qualified Code (s): N18.31 - Chronic kidney disease, stage 3a (7) DM2 (diabetes mellitus, type 2) Status: Chronic Qualifiers: Diabetes mellitus equipment [employer] insulin use: with long-term use Diabetes mellitus complication status: with kidney complications Diabetes mellitus complication detail: with chronic kidney disease Chronic kidney disease stage: stage 3 (moderate) - Plan We will talk to nephrology patient has significant upper extremity swelling. Avoid nephrotoxins. We will recheck blood work and treat the hyperkalemia. Status post pacemaker with lead reversion.
[2020-03-29] MEDS ORDERED: Furosemide 20 MG TAB PO SCH (08:45)
[2020-03-29] MEDS ORDERED: Furosemide 40 MG TAB PO SCH (08:45)
--- NOTE | 2020-03-29 08:57 | PRG ---
DATE OF SERVICE: 03/29/2020 SERVICE: Renal Medicine. SUBJECTIVE: Mr. Abernathy is a 74-year-old black male, who is being seen by the Renal Service for his acute kidney injury on top of his chronic renal failure. He was felt to have some prerenal azotemia, was given volume repletion. However, he complained of some swelling yesterday, for that reason, IV fluid has been discontinued. He received a one-time dose of furosemide 40 mg tab. No new complaints today. No chest pain or shortness of breath. OBJECTIVE: VITAL SIGNS: Blood pressure is 151/72, heart rate 83, respiratory rate 16, temperature 98.6, O2 saturation 99%. GENERAL: The patient is awake, alert, comfortable, not in distress. SKIN: Adequate turgor. HEENT: Pale conjunctivae. Anicteric sclerae. No neck mass. No carotid bruits. No JVD. CHEST: No deformities. LUNGS: Clear breath sounds. HEART: Normal sinus rhythm. No murmurs, gallops, or rubs. ABDOMEN: Globular, soft, nontender. No masses. EXTREMITIES: Positive for edema. MEDICATIONS: Medications of March 29, 2020, reviewed. LABORATORY DATA: Laboratories of March 29, 2020; white count 6.1, hemoglobin 8.3, sodium 130, potassium 5.2, chloride 99, carbon dioxide 22, BUN 39, creatinine 2.15, glucose 182, calcium 7.8. ASSESSMENT AND PLAN: 1. Acute kidney [id number] improved after volume repletion. However, the patient has increased volume. We will give another one-time Lasix at 40 mg tab now. No indication for any dialytic intervention. Continue current management. 2. Anemia-the patient's hemoglobin is noted to be at 8.3. He is on ferrous sulfate supplementation 325 mg tablet b.i.d. P.R.N. blood transfusion for hemoglobin of less than 7. 3. Bradycardia-status post revision of pacemaker. Continue supportive care. Recheck CBC basement in a.m. Job ID: [id number]
[2020-03-29] MEDS: cloNIDine 0.1 MG TAB PO SCH ×2 (09:37→21:06)
[2020-03-29] MEDS: Famotidine 20 MG TAB PO SCH (09:37)
[2020-03-29] MEDS: Calcitriol 0.25 MCG CAP PO SCH (09:39)
[2020-03-29] MEDS: Ferrous Sulfate 325 MG TAB PO SCH ×2 (09:39→17:22)
[2020-03-29] MEDS: DULoxetine 30 MG CAP PO SCH ×2 (09:39→21:06)
[2020-03-29] MEDS: Aspirin Chewable 81 MG TAB PO SCH (09:39)
[2020-03-29] MEDS: hydrALAZINE 25 MG TAB PO SCH ×3 (09:39→21:07)
[2020-03-29] MEDS: Isosorbide Dinitrate 20 MG TAB PO SCH ×3 (09:39→21:06)
[2020-03-29] MEDS: Clopidogrel Bisulfate 75 MG TAB PO SCH (09:40)
[2020-03-29] MEDS: Carvedilol 6.25 MG TAB PO SCH ×2 (09:40→21:06)
[2020-03-29] MEDS: Tamsulosin HCl 0.4 MG CAP PO SCH (09:41)
[2020-03-29] MEDS: Acetaminophen/Codeine 30-300mg Tablet PO PRN ×3 (10:27→21:04)
[2020-03-29 12:56] VITALS: BMI 38.9
--- NOTE | 2020-03-29 16:13 | PDOC.EP ---
- Subjective Date: 03/29/20 Time: 08:00 Interval History: No new cardiac events. - Review of Systems Constitutional: reports: weakness. denies: chills, fever, malaise Respiratory: reports: shortness of breath. denies: cough, hemoptysis, pleuritic pain, SOB with excertion Cardiology: denies: chest pain, heart racing, light headedness, orthopnea, paroxysmal noc. dyspnea Gastrointestinal: denies: abdominal pain, constipation, diarrhea, hematochezia Musculoskeletal: denies: unstable gait, falls, neck pain - Objective Allergies/Adverse Reactions: Allergies Allergy/AdvReac Type Severity Reaction Status Date / Time tramadol AdvReac decreased Verified 03/22/20 00:10 urinary output Current Medications Acetaminophen (Acetaminophen 325 Mg Tab) 650 mg PO Q4H PRN PRN Reason: Headache/Fever/Mild Pain (1-3) Last Admin: 03/22/20 19:52 Dose: 650 mg Documented by: Acetaminophen/Codeine Phosphate (Acetaminophen/Codeine 30-300mg Tablet) 1 tab PO Q4H PRN PRN Reason: Mild Pain (1-3) Last Admin: 03/23/20 20:08 Dose: 1 tab Documented by: Acetaminophen/Codeine Phosphate (Acetaminophen/Codeine 30-300mg Tablet) 2 tab PO Q4H PRN PRN Reason: Moderate Pain (4-6) Last Admin: 03/29/20 15:38 Dose: 2 tab Documented by: Aspirin (Aspirin Chewable 81 Mg Tab) 81 mg PO DAILY [facility] Last Admin: 03/29/20 09:39 Dose: 81 mg Documented by: Atorvastatin Calcium (Atorvastatin Calcium 40 Mg Tab) 40 mg PO HS [facility] Last Admin: 03/28/20 20:54 Dose: 40 mg Documented by: Bisacodyl (Bisacodyl 10 Mg Supp) 10 mg AL DAILYPRN PRN PRN Reason: Constipation Calcitriol (Calcitriol 0.25 Mcg Cap) 0.25 mcg PO DAILY [facility] Last Admin: 03/29/20 09:39 Dose: 0.25 mcg Documented by: Carvedilol (Carvedilol 6.25 Mg Tab) 6.25 mg PO BID [facility] Last Admin: 03/29/20 09:40 Dose: 6.25 mg Documented by: Cephalexin (Cephalexin 250 Mg Cap) 500 mg PO Q6HR [facility] Stop: 04/01/20 23:59 Last Admin: 03/29/20 11:58 Dose: 500 mg Documented by: Clonidine (Clonidine 0.1 Mg Tab) 0.1 mg PO BID [facility] Last Admin: 03/29/20 09:37 Dose: 0.1 mg Documented by: Clopidogrel Bisulfate (Clopidogrel Bisulfate 75 Mg Tab) 75 mg PO DAILY [facility] Last Admin: 03/29/20 09:40 Dose: 75 mg Documented by: Dextrose/Water (Dextrose 50% Abboject 50 Ml Syringe) 25 gm SLOW IVP PRN PRN PRN Reason: Hypoglycemia Last Admin: 03/26/20 12:47 Dose: 25 gm Documented by: Duloxetine HCl (Duloxetine 30 Mg Cap) 30 mg PO BID [facility] Last Admin: 03/29/20 09:39 Dose: 30 mg Documented by: Famotidine (Famotidine 20 Mg Tab) 20 mg PO DAILY [facility] Last Admin: 03/29/20 09:37 Dose: 20 mg Documented by: Ferrous Sulfate (Ferrous Sulfate 325 Mg Tab) 325 mg PO BID-[facility] Last Admin: 03/29/20 09:39 Dose: 325 mg Documented by: Glucagon (Glucagon 1 Mg/Ml Vial) 1 mg IM PRN PRN PRN Reason: Hypoglycemia Guaifenesin/Dextromethorphan (Guaifenesin Dm 100-10/5 Ml Udcup) 15 ml PO Q4H PRN PRN Reason: Cough Hydralazine HCl (Hydralazine 20 Mg/Ml Vial) 10 mg SLOW IVP Q6H PRN PRN Reason: SBP>150 Last Admin: 03/22/20 05:53 Dose: 10 mg Documented by: Hydralazine HCl (Hydralazine 25 Mg Tab) 100 mg PO TID [facility] Last Admin: 03/29/20 15:37 Dose: 100 mg Documented by: Hyoscyamine Sulfate (Hyoscyamine Sulfate 0.125 Mg Tab) 0.125 mg PO Q4H PRN PRN Reason: Bladder Spasms Dextrose/Water (D5w) 1,000 mls @ 0 mls/hr IV .Q0M PRN PRN Reason: Hypoglycemia Insulin Human Lispro (Humalog 300 Units/3 Ml Vial) 0 units SC .MODERATE SLIDING SC PRN PRN Reason: Moderate Correctional Scale Last Admin: 03/29/20 11:58 Dose: 6 unit Documented by: Insulin Human Lispro (Humalog 300 Units/3 Ml Vial) 0 units SC .BEDTIME SLIDING SC PRN PRN Reason: Bedtime Correctional Scale Isosorbide Dinitrate (Isosorbide Dinitrate 20 Mg Tab) 20 mg PO TID [facility] Last Admin: 03/29/20 15:37 Dose: 20 mg Documented by: Lactulose (Lactulose 20 Gm/30 Ml Udcup) 20 gm PO DAILYPRN PRN PRN Reason: Constipation Ondansetron HCl (Ondansetron Pf 4 Mg/2 Ml Vial) 4 mg IVP Q6H PRN PRN Reason: Nausea/Vomiting Polyethylene Glycol (Polyethylene Glycol 3350 17 Gm Packet) 17 gm PO DAILYPRN PRN PRN Reason: Constipation Senna/Docusate Sodium (Senokot S 8.6-50 Mg Tab) 2 tab PO BIDPRN PRN PRN Reason: Constipation Sodium Chloride (Flush - Normal Saline 10 Ml Syringe) 10 ml IVF Q12HR [facility] Last Admin: 03/29/20 09:40 Dose: 10 ml Documented by: Sodium Chloride (Flush - Normal Saline 10 Ml Syringe) 10 ml IVF PRN PRN PRN Reason: Saline Flush Tamsulosin HCl (Tamsulosin Hcl 0.4 Mg Cap) 0.4 mg PO DAILY [facility] Last Admin: 03/29/20 09:41 Dose: 0.4 mg Documented by: Vital Signs & Weight: Vital Signs Temp Pulse Resp BP BP Pulse Ox 03/29/20 15:37 71 03/29/20 11:40 97.8 F 71 16 131/70 98 03/29/20 09:40 151/72 H 03/29/20 09:39 83 151/72 H 03/29/20 09:37 151/72 H 03/29/20 07:18 98.6 F 83 16 151/72 H 99 Admit Weight 197 lb Weight 220 lb I/O: I/O 03/28/20 03/29/20 03/30/20 06:59 06:59 06:59 Intake Total 1810 340 480 Output Total 400 1775 550 Balance 1410 -1435 -70 - Physical Exam General: alert & oriented x3, appears well, no apparent distress, speech clear, affect appropriate HEENT: mucus membranes moist, normocephaly Neck: supple neck, midline trachea, no JVD/HJR, no masses, no bruit, no lymphadenopathy, no thromegaly Cardiology: regular rate and rhythm Lungs: clear to auscultation, normal breath sounds Neurology: cranial nerve 2-12 intact, grossly intact, coordination normal Abdomen: unremarkable, active bowel sounds, HJR negative Extremities: dry, strong pulses, warm, + edema B Skin: device site stable w/o swelling - Labs Result Diagrams: 03/29/20 04:23 03/29/20 04:23 - EKG Interpretation EKG Method: Telemetry EKG shows: Sinus rhythm - Device Device: dual, pacemaker Device Result: [employer] - Assessment/Plan Assessment/Plan: 1. Sick sinus syndrome -s/p PPM implant 03/23/2020 requiring RA lead revision 03/26/2020 2. Hx CAD 3. HTN 4. Fatigue 5. Edema 6. DEE 7. Second degree mobitz type 2 RV pacing could not be minimized through PPM programming adjustments due to underlying rhythm with occasion mobitz type 2 AV block. Backing off coreg in favor of alt antihypertensive may help this, given the AV node blocking properties of Coreg. Rhythm and PPM stable. EP signing off.
--- NOTE | 2020-03-29 16:28 | PDOC.HOSPP ---
- Subjective Encounter Date: 03/29/20 Encounter Time: 11:15 Subjective: pt up in bed feels weak today. - Objective Vital Signs & Weight: Vital Signs (12 hours) Temp Pulse Resp BP BP BP Pulse Ox 03/29/20 15:41 98.3 F 73 19 165/86 H 98 03/29/20 15:37 71 03/29/20 11:40 97.8 F 71 16 131/70 98 03/29/20 09:40 151/72 H 03/29/20 09:39 83 151/72 H 03/29/20 09:37 151/72 H 03/29/20 07:18 98.6 F 83 16 151/72 H 99 Weight Admit Weight 197 lb Weight 220 lb I&O: 03/28/20 03/29/20 03/30/20 06:59 06:59 06:59 Intake Total 1810 340 480 Output Total 400 1775 550 Balance 1410 -9345 -70 Result Diagrams: 03/29/20 04:23 03/29/20 04:23 Additional Labs: Accuchecks 03/29/20 03/28/20 03/28/20 11:25 20:55 16:54 POC Glucose 274 H 215 H 172 H Hospitalist ROS - Review of Systems Cardiovascular: denies: chest pain, palpitations, orthopnea, paroxysmal noc. dyspnea, edema, light headedness, other Gastrointestinal: denies: nausea, vomiting, abdominal pain, diarrhea, constipati on, melena, hematochezia, other Genitourinary: denies: dysuria, frequency, incontinence, hematuria, retention, other - Medication Medications: Active Medications Generic Name Dose Route Start Last Admin Trade Name Freq PRN Reason Stop Dose Admin Acetaminophen 650 mg 03/21/20 15:14 03/22/20 19:52 Acetaminophen 325 Mg Tab PO 650 mg Q4H PRN Administration Headache/Fever/Mild Pain (1-3) Acetaminophen/Codeine Phosphate 1 tab 03/23/20 14:40 03/23/20 20:08 Acetaminophen/Codeine 30-300mg Tablet PO 1 tab Q4H PRN Administration Mild Pain (1-3) Acetaminophen/Codeine Phosphate 2 tab 03/23/20 14:40 03/29/20 15:38 Acetaminophen/Codeine 30-300mg Tablet PO 2 tab Q4H PRN Administration Moderate Pain (4-6) Aspirin 81 mg 03/22/20 09:00 03/29/20 09:39 Aspirin Chewable 81 Mg Tab PO 81 mg DAILY JAGUAR Administration Atorvastatin Calcium 40 mg 03/21/20 21:00 03/28/20 20:54 Atorvastatin Calcium 40 Mg Tab PO 40 mg HS JAGUAR Administration Calcitriol 0.25 mcg 03/26/20 09:00 03/29/20 09:39 Calcitriol 0.25 Mcg Cap PO 0.25 mcg DAILY JAGUAR Administration Carvedilol 6.25 mg 03/24/20 21:00 03/29/20 09:40 Carvedilol 6.25 Mg Tab PO 6.25 mg BID JAGUAR Administration Cephalexin 500 mg 03/23/20 18:00 03/29/20 11:58 Cephalexin 250 Mg Cap PO 04/01/20 23:59 500 mg Q6HR JAGUAR Administration Clonidine 0.1 mg 03/28/20 09:00 03/29/20 09:37 Clonidine 0.1 Mg Tab PO 0.1 mg BID JAGUAR Administration Clopidogrel Bisulfate 75 mg 03/22/20 09:00 03/29/20 09:40 Clopidogrel Bisulfate 75 Mg Tab PO 75 mg DAILY JAGUAR Administration Dextrose/Water 25 gm 03/21/20 15:14 03/26/20 12:47 Dextrose 50% Abboject 50 Ml Syringe SLOW IVP 25 gm PRN PRN Administration Hypoglycemia Duloxetine HCl 30 mg 03/21/20 21:00 03/29/20 09:39 Duloxetine 30 Mg Cap PO 30 mg BID JAGUAR Administration Famotidine 20 mg 03/23/20 09:00 03/29/20 09:37 Famotidine 20 Mg Tab PO 20 mg DAILY JAGUAR Administration Ferrous Sulfate 325 mg 03/25/20 17:00 03/29/20 09:39 Ferrous Sulfate 325 Mg Tab PO 325 mg BID-WM JAGUAR Administration Hydralazine HCl 10 mg 03/22/20 05:38 03/22/20 05:53 Hydralazine 20 Mg/Ml Vial SLOW IVP 10 mg Q6H PRN Administration SBP>150 Hydralazine HCl 100 mg 03/28/20 09:00 03/29/20 15:37 Hydralazine 25 Mg Tab PO 100 mg TID JAGUAR Administration Insulin Human Lispro 0 units 03/21/20 15:14 03/29/20 11:58 Humalog 300 Units/3 Ml Vial SC 6 unit .MODERATE SLIDING SC PRN Administration Moderate Correctional Scale Isosorbide Dinitrate 20 mg 03/22/20 09:00 03/29/20 15:37 Isosorbide Dinitrate 20 Mg Tab PO 20 mg TID JAGAUR Administration Sodium Chloride 10 ml 03/22/20 21:00 03/29/20 09:40 Flush - Normal Saline 10 Ml Syringe IVF 10 ml Q12HR JAGUAR Administration Tamsulosin HCl 0.4 mg 03/26/20 09:00 03/29/20 09:41 Tamsulosin Hcl 0.4 Mg Cap PO 0.4 mg DAILY JAGUAR Administration - Exam Neck: negative: supple, symmetric, no JVD, no thyromegaly, no lymphadenopathy, no carotid bruit, JVD Heart: negative: RRR, no murmur, no gallops, no rubs, normal peripheral pulses, irregular, diminshed peripheral pulses, murmur present, II/IV, III/IV Respiratory: negative: CTAB, no wheezes, no rales, no ronchi, normal chest expansion, no tachypnea, normal percussion, rales, rhonchi, tachypneic, wheezes Extremities: 2+ LE edema Hosp A/P (1) Hyperkalemia Code(s): E87.5 - HYPERKALEMIA Status: Acute (2) Urinary retention Code(s): R33.9 - RETENTION OF URINE, UNSPECIFIED Status: Acute (3) Mobitz (type) II atrioventricular block Code(s): I44.1 - ATRIOVENTRICULAR BLOCK, SECOND DEGREE Status: Resolved (4) DEE (acute kidney injury) Code(s): N17.9 - ACUTE KIDNEY FAILURE, UNSPECIFIED Status: Acute (5) CKD (chronic kidney disease) stage 3, GFR 30-59 ml/min Code(s): N18.3 - CHRONIC KIDNEY DISEASE, STAGE 3 (MODERATE) * DO NOT USE * Status: Chronic Qualifiers: Chronic kidney disease stage 3 subtype: stage 3a (GFR 45-59) Qualified Code(s): N18.31 - Chronic kidney disease, stage 3a (6) DM2 (diabetes mellitus, type 2) Status: Chronic Qualifiers: Diabetes mellitus director long term care insulin use: with care home use Diabetes mellitus complication status: with kidney complications Diabetes mellitus complication detail: with chronic kidney disease Chronic kidney disease stage: stage 3 (moderate) (7) HLD (hyperlipidemia) Code(s): E78.5 - HYPERLIPIDEMIA, UNSPECIFIED Status: Chronic Qualifiers: Hyperlipidemia type: unspecified Qualified Code(s): E78.5 - Hyperlipidemia, unspecified - Plan We will talk to nephrology patient has significant upper extremity swelling. Avoid nephrotoxins. We will recheck blood work and treat the hyperkalemia. Status post pacemaker with lead reversion. 03/28 patient refusing treatment for hyperkalemia and also did not want his labs to be checked today. I did explain to the patient in details he has agreed to get his blood work checked today. We will continue to follow along his fluids have been discontinued. I have asked the patient to get up and move around. Patient was given diuretics by nephrology today. 03/29 patient up in bed states that he feels weak today. Creatinine improved significantly. We will watch for 1 more day and discharge if okay with nephrology. Patient still significantly volume overloaded. Patient has been getting diuretics on a daily basis. We will consult physical therapy.
[2020-03-29] MEDS: Atorvastatin Calcium 40 MG TAB PO SCH (21:06)
[2020-03-30] MEDS: Cephalexin 250 MG CAP PO SCH ×5 (01:30→23:08)
[2020-03-30 04:35] LABS: #Eosinphils 0.2 thou/uL (0.0-0.7); #Lymphocytes 1.9 thou/uL (1.20-3.40); #Monocytes 0.6 thou/uL (0.11-0.59); #Neutrophils 2.8 thou/uL (1.40-6.50); %Basophils 0.7 % (0.0-1.0); %Eosinophils 3.4 % (0.0-10.0); %Lymphocytes 34.2 % (21.0-51.0); %Monocytes 11.4 % (0.0-10.0); %Neutrophils 50.3 % (42.0-75.0); Hemoglobin 7.8 g/dL (14.0-18.0); Mean Corpuscular HGB CONC 32.8 g/dL (32.0-36.0); Mean Corpuscular Hemoglobin 28.2 pg (27.0-31.0); Mean Platelet Volume 8.3 fL (7.4-10.4); Platelet Count 193 thou/uL (130-400); RBC Distribution Width 11.7 % (11.5-14.5); Red Blood Cell (RBC) Count 2.75 mill/uL (4.70-6.10); White Blood Cell (WBC) Count 5.6 thou/uL (4.8-10.8)
[2020-03-30 04:50] LABS: Anion Gap 12 mmol/L (10-20); BUN (Urea Nitrogen) 35 mg/dL (8.4-25.7); Calc. Creatinine Clearance 48 mL/min (70-130); Calcium 7.7 mg/dL (7.8-10.44); Carbon Dioxide 26 mmol/L (23-31); Chloride 100 mmol/L (98-107); Glucose 177 mg/dL (83-110); Potassium 5.1 mmol/L (3.5-5.1); Sodium 133 mmol/L (136-145)
[2020-03-30] MEDS: HumaLOG 300 UNITS/3 ML VIAL SC PRN ×2 (06:18→17:49)
[2020-03-30] MEDS ORDERED: Furosemide 20 MG TAB PO SCH (08:30)
[2020-03-30] MEDS ORDERED: Potassium Chloride 20 MEQ TAB PO SCH (08:30)
[2020-03-30] MEDS: Ferrous Sulfate 325 MG TAB PO SCH ×2 (08:37→17:48)
[2020-03-30] MEDS: Carvedilol 6.25 MG TAB PO SCH ×2 (08:38→21:27)
[2020-03-30] MEDS: DULoxetine 30 MG CAP PO SCH ×2 (08:38→21:27)
[2020-03-30] MEDS: Tamsulosin HCl 0.4 MG CAP PO SCH (08:38)
[2020-03-30] MEDS: hydrALAZINE 25 MG TAB PO SCH ×3 (08:38→21:26)
[2020-03-30] MEDS: Isosorbide Dinitrate 20 MG TAB PO SCH ×3 (08:38→21:26)
[2020-03-30] MEDS: Calcitriol 0.25 MCG CAP PO SCH (08:38)
[2020-03-30] MEDS: Clopidogrel Bisulfate 75 MG TAB PO SCH (08:38)
[2020-03-30] MEDS: Aspirin Chewable 81 MG TAB PO SCH (08:38)
[2020-03-30] MEDS: Famotidine 20 MG TAB PO SCH (08:39)
[2020-03-30] MEDS: cloNIDine 0.1 MG TAB PO SCH ×2 (08:39→21:27)
[2020-03-30] MEDS ORDERED: Furosemide 40 MG TAB PO SCH (08:45)
--- NOTE | 2020-03-30 08:57 | PRG ---
DATE OF SERVICE: 03/30/2020 SUBJECTIVE: Mr. Abernathy is a 74-year-old black male, who was initially admitted for bradycardia. He was diagnosed with sick sinus syndrome and pacemaker implant wire revision was done. We saw this patient for his acute kidney injury on top of his chronic renal failure. He was empirically given volume repletion with improvement. However, he did develop some volume overload. For that reason, we stopped IV fluid and currently on a p.r.n. Lasix. He has been receiving p.r.n. p.o. Lasix and is tolerating this. Renal function is stable. No new complaints. No chest pain or shortness of breath. OBJECTIVE: VITAL SIGNS: Blood pressure 160/77, heart rate 78, respiratory rate 20, temperature 98.3, and O2 saturation 97%. GENERAL: The patient is awake, sitting comfortable, not in distress. SKIN: Adequate turgor. HEENT: Slightly pale conjunctivae. Anicteric sclerae. NECK: No neck mass. No carotid bruits. No JVD. CHEST: No deformities. LUNGS: Clear breath sounds. HEART: Normal sinus rhythm. No murmurs. No gallops. No rubs. ABDOMEN: Globular, soft, nontender. No masses. EXTREMITIES: Trace edema. MEDICATIONS: On March 30, 2020, reviewed. LABORATORIES: On March 30, 2020; white count 5.6, hemoglobin 7.8. Sodium 133, potassium 5.1, chloride 100, carbon dioxide 26, BUN 35, creatinine 1.95, calcium 7.7. ASSESSMENT AND PLAN: 1. Anemia, on iron supplementation. P.r.n. blood transfusion. 2. Acute kidney injury on top of his chronic renal failure, slowly improving renal function. Most recent creatinine is noted at 1.95 and this was 2.15 yesterday. Still with leg edema. We will give Lasix 40 mg 1 tablet x1 dose. No indication for an dialytic intervention. 3. Status post bradycardia/sick sinus syndrome, status post pacemaker placement. Doing well. Recheck CBC and basic metabolic in am Job ID: [id number] MTDD
[2020-03-30] MEDS: Acetaminophen/Codeine 30-300mg Tablet PO PRN ×3 (10:26→18:29)
--- NOTE | 2020-03-30 13:26 | PDOC.HOSPP ---
- Subjective Encounter Date: 03/30/20 Encounter Time: 10:30 Subjective: pt up in bed no complains. - Objective Vital Signs & Weight: Vital Signs (12 hours) Temp Pulse Resp BP BP BP Pulse Ox 03/30/20 12:19 98.3 F 85 15 179/86 H 99 03/30/20 08:05 97.7 F 74 19 202/97 H 98 03/30/20 03:30 98.3 F 78 20 160/77 H 97 Weight Admit Weight 197 lb Weight 218 lb 5 oz I&O: 03/29/20 03/30/20 03/31/20 06:59 06:59 06:59 Intake Total 340 1060 Output Total 1775 3025 Balance -4625 -9847 Result Diagrams: 03/30/20 04:00 03/30/20 04:00 Additional Labs: Accuchecks 03/30/20 03/30/20 03/29/20 11:05 06:07 19:55 POC Glucose 224 H 168 H 215 H 03/29/20 03/29/20 17:26 05:45 POC Glucose 169 H 188 H Hospitalist ROS - Review of Systems Cardiovascular: denies: chest pain, palpitations, orthopnea, paroxysmal noc. dyspnea, edema, light headedness, other Gastrointestinal: denies: nausea, vomiting, abdominal pain, diarrhea, constipation, melena, hematochezia, other Genitourinary: denies: dysuria, frequency, incontinence, hematuria, retention, other - Medication Medications: Active Medications Generic Name Dose Route Start Last Admin Trade Name Freq PRN Reason Stop Dose Admin Acetaminophen 650 mg 03/21/20 15:14 03/22/20 19:52 Acetaminophen 325 Mg Tab PO 650 mg Q4H PRN Administration Headache/Fever/Mild Pain (1-3) Acetaminophen/Codeine Phosphate 1 tab 03/23/20 14:40 03/29/20 21:04 Acetaminophen/Codeine 30-300mg Tablet PO 1 tab Q4H PRN Administration Mild Pain (1-3) Acetaminophen/Codeine Phosphate 2 tab 03/23/20 14:40 03/30/20 10:26 Acetaminophen/Codeine 30-300mg Tablet PO 2 tab Q4H PRN Administration Moderate Pain (4-6) Aspirin 81 mg 03/22/20 09:00 03/30/20 08:38 Aspirin Chewable 81 Mg Tab PO 81 mg DAILY JAGUAR Administration Atorvastatin Calcium 40 mg 03/21/20 21:00 03/29/20 21:06 Atorvastatin Calcium 40 Mg Tab PO 40 mg HS JAGUAR Administration Calcitriol 0.25 mcg 03/26/20 09:00 03/30/20 08:38 Calcitriol 0.25 Mcg Cap PO 0.25 mcg DAILY JAGUAR Administration Carvedilol 6.25 mg 03/24/20 21:00 03/30/20 08:38 Carvedilol 6.25 Mg Tab PO 6.25 mg BID JAGUAR Administration Cephalexin 500 mg 03/23/20 18:00 03/30/20 06:19 Cephalexin 250 Mg Cap PO 04/01/20 23:59 500 mg Q6HR JAGUAR Administration Clonidine 0.1 mg 03/28/20 09:00 03/30/20 08:39 Clonidine 0.1 Mg Tab PO 0.1 mg BID JAGUAR Administration Clopidogrel Bisulfate 75 mg 03/22/20 09:00 03/30/20 08:38 Clopidogrel Bisulfate 75 Mg Tab PO 75 mg DAILY JAGUAR Administration Dextrose/Water 25 gm 03/21/20 15:14 03/26/20 12:47 Dextrose 50% Abboject 50 Ml Syringe SLOW IVP 25 gm PRN PRN Administration Hypoglycemia Duloxetine HCl 30 mg 03/21/20 21:00 03/30/20 08:38 Duloxetine 30 Mg Cap PO 30 mg BID JAGUAR Administration Famotidine 20 mg 03/23/20 09:00 03/30/20 08:39 Famotidine 20 Mg Tab PO 20 mg DAILY JAGUAR Administration Ferrous Sulfate 325 mg 03/25/20 17:00 03/30/20 08:37 Ferrous Sulfate 325 Mg Tab PO 325 mg BID-WM JAGUAR Administration Hydralazine HCl 10 mg 03/22/20 05:38 03/22/20 05:53 Hydralazine 20 Mg/Ml Vial SLOW IVP 10 mg Q6H PRN Administration SBP>150 Hydralazine HCl 100 mg 03/28/20 09:00 03/30/20 08:38 Hydralazine 25 Mg Tab PO 100 mg TID JAGUAR Administration Insulin Human Lispro 0 units 03/21/20 15:14 03/30/20 06:18 Humalog 300 Units/3 Ml Vial SC 2 unit .MODERATE SLIDING SC PRN Administration Moderate Correctional Scale Isosorbide Dinitrate 20 mg 03/22/20 09:00 03/30/20 08:38 Isosorbide Dinitrate 20 Mg Tab PO 20 mg TID JAGUAR Administration Sodium Chloride 10 ml 03/22/20 21:00 03/29/20 21:10 Flush - Normal Saline 10 Ml Syringe IVF 10 ml Q12HR JAGUAR Administration Tamsulosin HCl 0.4 mg 03/26/20 09:00 03/30/20 08:38 Tamsulosin Hcl 0.4 Mg Cap PO 0.4 mg DAILY JAGUAR Administration - Exam Heart: negative: RRR, no murmur, no gallops, no rubs, normal peripheral pulses, irregular, diminshed peripheral pulses, murmur present, II/IV, III/IV Respiratory: negative: CTAB, no wheezes, no rales, no ronchi, normal chest expansion, no tachypnea, normal percussion, rales, rhonchi, tachypneic, wheezes Gastrointestinal: negative: soft, non-tender, non-distended, normal bowel sounds, no palpable masses, no hepatomegaly, no splenomegaly, no bruit, no guarding, no rigidity, tender to palpation, distended, diminished bowl sounds, voluntary guarding Extremities: 2+ LE edema Hosp A/P (1) Hyperkalemia Code(s): E87.5 - HYPERKALEMIA Status: Acute (2) Urinary retention Code(s): R33.9 - RETENTION OF URINE, UNSPECIFIED Status: Acute (3) Mobitz (type) II atrioventricular block Code(s): I44.1 - ATRIOVENTRICULAR BLOCK, SECOND DEGREE Status: Resolved (4) DEE (acute kidney injury) Code(s): N17.9 - ACUTE KIDNEY FAILURE, UNSPECIFIED Status: Acute (5) CKD (chronic kidney disease) stage 3, GFR 30-59 ml/min Code(s): N18.3 - CHRONIC KIDNEY DISEASE, STAGE 3 (MODERATE) * DO NOT USE * Status: Chronic Qualifiers: Chronic kidney disease stage 3 subtype: stage 3a (GFR 45-59) Qualified Code(s): N18.31 - Chronic kidney disease, stage 3a (6) DM2 (diabetes mellitus, type 2) Status: Chronic Qualifiers: Diabetes mellitus terminologist insulin use: with terminologist use Diabetes mellitus complication status: with kidney complications Diabetes mellitus complication detail: with chronic kidney disease Chronic kidney disease stage: stage 3 (moderate) (7) HLD (hyperlipidemia) Code(s): E78.5 - HYPERLIPIDEMIA, UNSPECIFIED Status: Chronic Qualifiers: Hyperlipidemia type: unspecified Qualified Code(s): E78.5 - Hyperlipidemia, unspecified - Plan We will talk to nephrology patient has significant upper extremity swelling. Avoid nephrotoxins. We will recheck blood work and treat the hyperkalemia. Status post pacemaker with lead reversion. 03/28 patient refusing treatment for hyperkalemia and also did not want his labs to be checked today. I did explain to the patient in details he has agreed to get his blood work checked today. We will continue to follow along his fluids have been discontinued. I have asked the patient to get up and move around. Patient was given diuretics by nephrology today. 03/29 patient up in bed states that he feels weak today. Creatinine improved significantly. We will watch for 1 more day and discharge if okay with nephrology. Patient still significantly volume overloaded. Patient has been getting diuretics on a daily basis. We will consult physical therapy. 03/30 pt's creatinine is improving will monitor. pt got one more dose of lasix. Will discharge when ok with nephrology. PT ordered for patient.
[2020-03-30] MEDS: Atorvastatin Calcium 40 MG TAB PO SCH (21:26)
[2020-03-31] MEDS: Acetaminophen/Codeine 30-300mg Tablet PO PRN ×4 (00:31→16:36)
[2020-03-31 04:31] LABS: #Eosinphils 0.1 thou/uL (0.0-0.7); #Lymphocytes 1.9 thou/uL (1.20-3.40); #Monocytes 0.5 thou/uL (0.11-0.59); #Neutrophils 2.4 thou/uL (1.40-6.50); %Basophils 0.3 % (0.0-1.0); %Eosinophils 2.8 % (0.0-10.0); %Monocytes 10.2 % (0.0-10.0); %Neutrophils 48.7 % (42.0-75.0); Mean Corpuscular HGB CONC 31.9 g/dL (32.0-36.0); Mean Corpuscular Hemoglobin 27.5 pg (27.0-31.0); Mean Corpuscular Volume 86.2 fL (78.0-98.0); Mean Platelet Volume 7.9 fL (7.4-10.4); Platelet Count 191 thou/uL (130-400); RBC Distribution Width 11.7 % (11.5-14.5); White Blood Cell (WBC) Count 4.9 thou/uL (4.8-10.8)
[2020-03-31 04:50] LABS: Anion Gap 12 mmol/L (10-20); BUN (Urea Nitrogen) 30 mg/dL (8.4-25.7); Calc. Creatinine Clearance 53 mL/min (70-130); Calcium 7.8 mg/dL (7.8-10.44); Carbon Dioxide 27 mmol/L (23-31); Chloride 100 mmol/L (98-107); Glucose 186 mg/dL (83-110); Potassium 5.1 mmol/L (3.5-5.1); Sodium 134 mmol/L (136-145)
[2020-03-31] MEDS: HumaLOG 300 UNITS/3 ML VIAL SC PRN ×3 (06:14→16:32)
[2020-03-31] MEDS: Cephalexin 250 MG CAP PO SCH ×3 (06:14→16:31)
[2020-03-31] MEDS: cloNIDine 0.1 MG TAB PO SCH (09:08)
[2020-03-31] MEDS: Famotidine 20 MG TAB PO SCH (09:09)
[2020-03-31] MEDS: Ferrous Sulfate 325 MG TAB PO SCH ×2 (09:09→16:32)
[2020-03-31] MEDS: Tamsulosin HCl 0.4 MG CAP PO SCH (09:09)
[2020-03-31] MEDS: Carvedilol 6.25 MG TAB PO SCH (09:09)
[2020-03-31] MEDS: Aspirin Chewable 81 MG TAB PO SCH (09:09)
[2020-03-31] MEDS: Clopidogrel Bisulfate 75 MG TAB PO SCH (09:09)
[2020-03-31] MEDS: hydrALAZINE 25 MG TAB PO SCH ×2 (09:10→16:31)
[2020-03-31] MEDS: DULoxetine 30 MG CAP PO SCH (09:10)
[2020-03-31] MEDS: Calcitriol 0.25 MCG CAP PO SCH (09:10)
[2020-03-31] MEDS: Isosorbide Dinitrate 20 MG TAB PO SCH ×2 (09:10→16:32)
[2020-03-31] MEDS ORDERED: Furosemide 20 MG TAB PO SCH (10:15)
--- NOTE | 2020-03-31 10:34 | PRG ---
DATE OF SERVICE: 03/31/2020 SUBJECTIVE: Mr. Abernathy is a 74-year-old black male, admitted for bradycardia and he was noted to be symptomatic with this. A pacemaker has been placed. We are following up this patient for his acute kidney injury, which was hemodynamically-mediated renal dysfunction. He was given volume repletion; however, he developed volume overload. For this reason, IV fluids were discontinued, and he receives p.r.n. Lasix. He has been tolerating the p.o. Lasix. Creatinine is also stabilizing. No new complaints today. No chest pain or shortness of breath. He states his leg swelling is much improved. OBJECTIVE: VITAL SIGNS: Blood pressure 143/69, heart rate is 79, respiratory rate 17, O2 saturation 98% on room air, and temperature 98.5. GENERAL: The patient is awake, alert, comfortable, not in overt distress. SKIN: Adequate turgor. HEENT: Slightly pale conjunctivae. Anicteric sclerae. No neck mass. No carotid bruits. No JVD. CHEST: No deformities. LUNGS: Clear breath sounds. HEART: Normal sinus rhythm. No murmurs. No gallops. No rubs. ABDOMEN: Globular, soft, nontender. No masses. EXTREMITIES: Trace edema. MEDICATIONS: March 31, 2020, reviewed. LABORATORY DATA: March 31, 2020; white count 4.9, hemoglobin 8. Sodium 134, potassium 5.1, chloride 100, carbon dioxide 27, BUN 30, creatinine 1.75, GFR 47 mL/minute calcium 7.8. ASSESSMENT AND PLAN: 1. Acute kidney injury - superimposed hemodynamically-mediated renal dysfunction on top of his chronic renal failure. Creatinine slowly improving. There is no indication for any dialytic intervention. 2. Leg edema - furosemide 40 mg one tablet now. He is tolerating the p.r.n. diuretics. As previously mentioned, no indication for any dialytic intervention. 3. Secondary hyperparathyroidism, currently on calcitriol 0.25 mcg tablet daily. 4. Symptomatic bradycardia - stable, status post pacemaker placement. 5. Recheck CBC and basic metabolic panel in a.m. Job ID: [id number]
[2020-03-31 18:53] VITALS: BP 160/82; TEMP 98.1
--- NOTE | 2020-04-01 08:57 | PDOC.DS.DS ---
Provider - Provider Date of Admission: 03/21/20 15:12 Date of Discharge: 03/31/20 Admitting Provider: Chan Pierre MD Consultations: Cardiology, Nephrology, Other (Urology) Primary Care Physician: FATOUMATA NIELSEN NP Course - Hospital Course Hospital Course: Patient is a very pleasant 74-year-old male who [facility] for bradycardia. He was noted to be in Mobitz type II heart block. He was seen by electrophysiology and underwent a pacemaker placement. Initially he was discharged however he had worsening acute on chronic kidney disease at this time he was noted to have urinary retention. He also underwent lead revision. Urology was consulted. Cochran catheter was placed. Patient's Cochran catheter was discontinued twice however patient had significant residual volumes. At this time Cochran catheter was placed and then taken to urology for follow-up Patient's creatinine continued to improve he was put on diuretics. I did review patient's records extensively also because cardiology it was unclear why patient was on aspirin Plavix and Eliquis. Understandable to have aspirin and Plavix since his recent stent to the circumflex that was in February however for Eliquis patient does not recall any history of DVTs or PEs or any arrhythmia. He states that Eliquis was started about [address] Powell. I did extensively review his chart there is no indication of why the patient was on Eliquis. I have told him to discontinue the Eliquis for now I will touch bases with his primary care doctor on Thursday. He has a history of TIA no strokes were noted. Patient will follow up with urology and nephrology next week. Resuscitation Status: 03/21/20 15:08 Resuscitation Status Routine Resuscitation Status: FULL: Full Resuscitation Discussed with: POA: susana - Labs Lab Results: 03/31/20 04:10 03/31/20 04:10 Abnormal Lab Results - Last 48 hrs 03/31/20 04:10: Sodium 134 L, BUN 30 H, Creatinine 1.75 H 03/31/20 04:10: RBC 2.90 L, Hgb 8.0 L, Hct 25.0 L, MCHC 31.9 L, Monocytes % 10.2 H - Physical Exam Vitals: Weight Admit Weight 197 lb Weight 210 lb 8 oz Physical Exam: The patient was seen and examined on the day of discharge. Problem - Problem (1) Hyperkalemia Code(s): E87.5 - HYPERKALEMIA Status: Acute (2) Urinary retention Code(s): R33.9 - RETENTION OF URINE, UNSPECIFIED Status: Acute (3) Mobitz (type) II atrioventricular block Code(s): I44.1 - ATRIOVENTRICULAR BLOCK, SECOND DEGREE Status: Resolved (4) DEE (acute kidney injury) Code(s): N17.9 - ACUTE KIDNEY FAILURE, UNSPECIFIED Status: Acute (5) CKD (chronic kidney disease) stage 3, GFR 30-59 ml/min Code(s): N18.3 - CHRONIC KIDNEY DISEASE, STAGE 3 (MODERATE) * DO NOT USE * Status: Chronic Qualifiers: Chronic kidney disease stage 3 subtype: stage 3a (GFR 45-59) Qualified Code(s): N18.31 - Chronic kidney disease, stage 3a (6) DM2 (diabetes mellitus, type 2) Status: Chronic Qualifiers: Diabetes mellitus intermodal customer service insulin use: with detention use Diabetes mellitus complication status: with kidney complications Diabetes mellitus complication detail: with chronic kidney disease Chronic kidney disease stage: stage 3 (moderate) (7) HLD (hyperlipidemia) Code(s): E78.5 - HYPERLIPIDEMIA, UNSPECIFIED Status: Chronic Qualifiers: Hyperlipidemia type: unspecified Qualified Code(s): E78.5 - Hyperlipidemia, unspecified Plan - Discharge Medications Prescriptions: Ferrous Sulfate [Feosol] 325 mg PO BID- #60 tab Tamsulosin HCl [Flomax] 0.4 mg PO DAILY #30 cap Isosorbide Dinitrate [Isordil] 20 mg PO TID #90 tab Cephalexin [Keflex] 500 mg PO Q6HR #4 cap Furosemide [Lasix] 20 mg PO DAILY #30 tablet Home Medications: Medication Instructions Recorded Confirmed Type DULoxetine HCl [Cymbalta] 30 mg PO BID 03/10/20 03/22/20 History Gabapentin 600 mg PO BID 03/10/20 03/22/20 History Guaifen/Dextromethorphan/PE 118 ml PO Q6H PRN 03/10/20 03/22/20 History [Tussin Cf Cough-Cold Liquid] Levemir Flexpen [Levemir FlexPen] 60 units SC Q12HR 03/10/20 03/22/20 History Aspirin Chewable [Aspirin Chewable 81 mg PO DAILY #90 tab 03/16/20 03/22/20 Rx Tablet] Atorvastatin Calcium [Lipitor] 40 mg PO HS #90 tab 03/16/20 03/22/20 Rx Carvedilol [Coreg] 6.25 mg PO BID-WM tab 03/16/20 03/22/20 Rx Clopidogrel Bisulfate [Plavix] 75 mg PO DAILY #90 tab 03/16/20 03/22/20 Rx hydrALAZINE [Apresoline] 100 mg PO TID #90 tab 03/16/20 03/22/20 Rx Isosorbide Dinitrate [Isordil] 20 mg PO TID #90 tab 03/23/20 Rx Cephalexin [Keflex] 500 mg PO Q6HR #4 cap 03/31/20 Rx Ferrous Sulfate [Feosol] 325 mg PO BID-WM #60 tab 03/31/20 Rx Furosemide [Lasix] 20 mg PO DAILY #30 tablet 03/31/20 Rx Tamsulosin HCl [Flomax] 0.4 mg PO DAILY #30 cap 04/01/20 Rx Allergies: tramadol Adverse Reaction (Verified 03/22/20 00:10) decreased urinary output - Discharge Instructions Discharge Instructions:: To check BP, pulse and fingerstick glucose twice daily for 10 days and record to f/u with PCP. please make an appointment with urology dr dunbar for your cochran catheter. Please follow-up with your kidney doctor next week to check and make sure you are kidney function is well. That is Dr. Meeks. Please make an appointment with the urologist for your Cochran catheter next week. Stop taking Eliquis. Activity:: Activity Restrictions Nourishment:: Diabetic Diet, Heart Healthy Diet, Low Sodium Diet - Follow up Plan Referrals: FATOUMATA NIELSEN NP [Primary Care Provider] - 7 Days (Please call and make follow-up appointment within 7 days. ) J Luis Estrella MD [Active] - 2-3 Weeks (Please call and make a follow-up appointment within 2-3 weeks. ) Rai Samano MD [Active] - 2-3 Weeks (Please call and make follow-up appoi ntment within 2-3 weeks. ) Selvin Ramirez MD [[employer]] - 10 Days (14 days [phone]) Disposition: HOME Quality - Care Measures CORE MEASURES:: N/A
== END 2020-03-31 18:40 | disposition home or self-care (01) | DRG 242 ==
LOC: ERS 12:57 → ERHOLD 15:12 → 2NO 22:42
PROVIDERS: ADMIT Internal Medicine; ATTEND Internal Medicine
PROC: 02H63JZ Insertion of Pacemaker Lead into Right Atrium, Percutaneous Approach (ICD-10-PCS; principal; 2020-03-22)
PROC: 0JH606Z Insertion of Pacemaker, Dual Chamber into Chest Subcutaneous Tissue and Fascia, Open Approach (ICD-10-PCS; 2020-03-22)
PROC: 02HK3JZ Insertion of Pacemaker Lead into Right Ventricle, Percutaneous Approach (ICD-10-PCS; 2020-03-22)
PROC: 02WA0MZ Revision of Cardiac Lead in Heart, Open Approach (ICD-10-PCS; 2020-03-22)
PROC: B2111ZZ Fluoroscopy of Multiple Coronary Arteries using Low Osmolar Contrast (ICD-10-PCS; 2020-03-26)
PROC: 0T9B70Z Drainage of Bladder with Drainage Device, Via Natural or Artificial Opening (ICD-10-PCS; 2020-03-26)
DX: I44.1 Atrioventricular block, second degree (principal); I21.4 Non-ST elevation (NSTEMI) myocardial infarction; N17.9 Acute kidney failure, unspecified; N25.81 Secondary hyperparathyroidism of renal origin; T82.121A Displacement of cardiac pulse generator (battery), initial encounter; Z20.828 Contact with and (suspected) exposure to other viral communicable diseases; N18.31 Chronic kidney disease, stage 3a; E78.5 Hyperlipidemia, unspecified; E11.22 Type 2 diabetes mellitus with diabetic chronic kidney disease; I25.10 Atherosclerotic heart disease of native coronary artery without angina pectoris; F32.9 Major depressive disorder, single episode, unspecified; I12.9 Hypertensive chronic kidney disease with stage 1 through stage 4 chronic kidney disease, or unspecified chronic kidney disease; M19.90 Unspecified osteoarthritis, unspecified site; D63.1 Anemia in chronic kidney disease; I49.5 Sick sinus syndrome; Y83.8 Other surgical procedures as the cause of abnormal reaction of the patient, or of later complication, without mention of misadventure at the time of the procedure; R33.9 Retention of urine, unspecified; E87.5 Hyperkalemia; K59.00 Constipation, unspecified; Z95.5 Presence of coronary angioplasty implant and graft; Z88.5 Allergy status to narcotic agent; Z79.82 Long term (current) use of aspirin; Z79.01 Long term (current) use of anticoagulants; Z79.4 Long term (current) use of insulin; Z79.899 Other long term (current) drug therapy; Z86.73 Personal history of transient ischemic attack (TIA), and cerebral infarction without residual deficits
CPT/HCPCS: 33208; 33215; 36415; 36416; 71045; 76770; 76942; 80048; 80053; 81001; 82553; 83735; 83970; 84100; 84484; 85025; 85610; 85730; 87635; 93005; 93010; 99152; 99153; C1785; C1898; J0360; J0690; J1580; J1650; J1815; J2001; J2250; J2405; J3010; J3490; U0003

== ENCOUNTER 2020-05-28 14:56 | Inpatient (IN) | payer MEDICARE, MEDICAID ==
[2020-05-28] MEDS ORDERED: Meclizine HCl 25 MG TAB ONE (16:09)
[2020-05-28] MEDS ORDERED: Acetaminophen 650 MG Suppository PR PRN (16:58)
[2020-05-28] MEDS ORDERED: Ondansetron ODT 4 MG TAB PO PRN (16:58)
[2020-05-28] MEDS ORDERED: Ondansetron PF 4 MG/2 ML Vial IVP PRN (16:58)
[2020-05-28] MEDS ORDERED: hydrALAZINE 20 MG/ML VIAL SLOW IVP PRN (17:04)
[2020-05-28] MEDS ORDERED: Dextrose 50% Abboject 50 ML SYRINGE SLOW IVP PRN (17:07)
[2020-05-28] MEDS ORDERED: Dextrose 5% in Water 1,000 ML IV PRN (17:07)
[2020-05-28] MEDS ORDERED: Labetalol HCl 100 MG/20 ML VIAL ONE (17:08)
[2020-05-28] MEDS ORDERED: Meclizine HCl 25 MG TAB PO PRN (17:36)
[2020-05-28 17:43] LABS: ALT (SGPT) 18 U/L (8-55); AST (SGOT) 27 U/L (5-34); Albumin 3.2 g/dL (3.4-4.8); Alkaline Phosphatase 79 U/L (40-110); Anion Gap 18 mmol/L (10-20); BUN (Urea Nitrogen) 33 mg/dL (8.4-25.7); Bilirubin, Total 0.3 mg/dL (0.2-1.2); Calc. Creatinine Clearance 0 mL/min (70-130); Calcium 8.3 mg/dL (7.8-10.44); Carbon Dioxide 15 mmol/L (23-31); Chloride 113 mmol/L (98-107); Globulin 3.6 g/dL (2.4-3.5); Glucose 199 mg/dL (83-110); Potassium 4.6 mmol/L (3.5-5.1); Protein, Total 6.8 g/dL (5.8-8.1); Sodium 141 mmol/L (136-145)
[2020-05-28] MEDS ORDERED: hydrALAZINE 20 MG/ML VIAL ONE (18:18)
[2020-05-28] MEDS ORDERED: Heparin 5,000 UNITS/ML VIAL SC SCH ×2 (21:00)
[2020-05-28] MEDS ORDERED: Apixaban 5 MG TAB PO SCH (21:00)
[2020-05-29] MEDS ORDERED: HumaLOG 300 UNITS/3 ML VIAL ONE (01:05)
[2020-05-29] MEDS: HumaLOG 300 UNITS/3 ML VIAL SC PRN (01:07)
[2020-05-29] MEDS: Atorvastatin Calcium 40 MG TAB PO SCH ×2 (01:17→22:05)
[2020-05-29 04:13] LABS: SARS-CoV-2 PCR by NAA Not Detected (NotDetected)
[2020-05-29 04:29] LABS: Mean Corpuscular Volume 83.9 fL (78.0-98.0); RBC Distribution Width 12.7 % (11.5-14.5)
[2020-05-29 04:41] LABS: #Eosinphils 0.2 thou/uL (0.0-0.7); #Monocytes 0.5 thou/uL (0.11-0.59); #Neutrophils 3.8 thou/uL (1.40-6.50); %Basophils 0.5 % (0.0-1.0); %Eosinophils 2.4 % (0.0-10.0); %Monocytes 8.3 % (0.0-10.0); %Neutrophils 57.7 % (42.0-75.0); Mean Corpuscular HGB CONC 31.8 g/dL (32.0-36.0); Mean Corpuscular Hemoglobin 26.7 pg (27.0-31.0); Mean Platelet Volume 9.4 fL (7.4-10.4); Platelet Count 165 thou/uL (130-400); White Blood Cell (WBC) Count 6.5 thou/uL (4.8-10.8)
[2020-05-29 04:49] LABS: Anion Gap 13 mmol/L (10-20); BUN (Urea Nitrogen) 32 mg/dL (8.4-25.7); Calc. Creatinine Clearance 56 mL/min (70-130); Calcium 8.6 mg/dL (7.8-10.44); Carbon Dioxide 23 mmol/L (23-31); Chloride 109 mmol/L (98-107); Glucose 181 mg/dL (83-110); Potassium 4.1 mmol/L (3.5-5.1); Sodium 141 mmol/L (136-145)
[2020-05-29] MEDS ORDERED: Carvedilol 6.25 MG TAB PO SCH (08:00)
[2020-05-29] MEDS ORDERED: Aspirin Chewable 81 MG TAB ONE (09:43)
[2020-05-29] MEDS ORDERED: Clopidogrel Bisulfate 75 MG TAB ONE (09:43)
[2020-05-29] MEDS: Aspirin 81 mg Enteric Coated Tablet PO SCH (09:45)
[2020-05-29] MEDS: Clopidogrel Bisulfate 75 MG TAB PO SCH (09:45)
[2020-05-29] MEDS ORDERED: hydrALAZINE 20 MG/ML VIAL ONE (10:18)
[2020-05-29] MEDS ORDERED: Acetaminophen 325 MG TAB ONE (10:35)
[2020-05-29] MEDS: Acetaminophen 325 MG TAB PO PRN (10:36)
[2020-05-29 14:28] LABS: Troponin I 0.041 ng/mL (< 0.028)
[2020-05-29] MEDS: Isosorbide Dinitrate 20 MG TAB PO SCH ×3 (17:01→23:03)
[2020-05-29] MEDS: Carvedilol 6.25 MG TAB PO SCH ×2 (17:01→17:06)
[2020-05-29] MEDS: Ferrous Sulfate 325 MG TAB PO SCH ×2 (17:01→17:06)
[2020-05-29] MEDS ORDERED: Non-Formulary Item 1 EACH (Levemir Flexpen [Levemir Flexpen] 100 UNITS/ML Pen) SC SCH (21:00)
[2020-05-29] MEDS ORDERED: Nitroglycerin 0.4 MG TAB (25 Tab Bottle) SL PRN (21:59)
[2020-05-29] MEDS ORDERED: Morphine 2 MG/ML VIAL SLOW IVP SCH (22:00)
[2020-05-29] MEDS: DULoxetine 30 MG CAP PO SCH (22:06)
[2020-05-29] MEDS: Insulin Glargine 60 UNITS in Pre-Filled Syringe 1 EACH SC SCH (22:09)
[2020-05-29] MEDS ORDERED: Aspirin Chewable 81 MG TAB PO SCH (22:45)
[2020-05-29 23:24] LABS: Troponin I 0.106 ng/mL (< 0.028)
[2020-05-30 02:16] LABS: #Eosinphils 0.1 thou/uL (0.0-0.7); #Lymphocytes 2.1 thou/uL (1.20-3.40); #Monocytes 0.5 thou/uL (0.11-0.59); #Neutrophils 3.7 thou/uL (1.40-6.50); %Basophils 0.7 % (0.0-1.0); %Lymphocytes 32.2 % (21.0-51.0); %Monocytes 8.2 % (0.0-10.0); Hemoglobin 10.2 g/dL (14.0-18.0); Mean Corpuscular HGB CONC 32.3 g/dL (32.0-36.0); Mean Corpuscular Hemoglobin 27.2 pg (27.0-31.0); Mean Corpuscular Volume 84.3 fL (78.0-98.0); Mean Platelet Volume 9.3 fL (7.4-10.4); Platelet Count 154 thou/uL (130-400); RBC Distribution Width 12.9 % (11.5-14.5); Red Blood Cell (RBC) Count 3.73 mill/uL (4.70-6.10); White Blood Cell (WBC) Count 6.4 thou/uL (4.8-10.8)
[2020-05-30 02:41] LABS: Troponin I 0.074 ng/mL (< 0.028)
[2020-05-30 02:45] LABS: ALT (SGPT) 11 U/L (8-55); AST (SGOT) 13 U/L (5-34); Albumin 3.1 g/dL (3.4-4.8); Alkaline Phosphatase 63 U/L (40-110); Anion Gap 13 mmol/L (10-20); BUN (Urea Nitrogen) 36 mg/dL (8.4-25.7); Bilirubin, Total 0.5 mg/dL (0.2-1.2); Calc. Creatinine Clearance 53 mL/min (70-130); Calcium 8.6 mg/dL (7.8-10.44); Carbon Dioxide 22 mmol/L (23-31); Chloride 110 mmol/L (98-107); Glucose 126 mg/dL (83-110); Potassium 4.1 mmol/L (3.5-5.1); Protein, Total 6.1 g/dL (5.8-8.1); Sodium 141 mmol/L (136-145)
[2020-05-30 04:42] LABS: Troponin I 0.067 ng/mL (< 0.028)
[2020-05-30] MEDS ORDERED: Clopidogrel Bisulfate 75 MG TAB PO SCH (09:00)
[2020-05-30] MEDS: Carvedilol 6.25 MG TAB PO SCH ×2 (10:14→17:38)
[2020-05-30] MEDS: Ferrous Sulfate 325 MG TAB PO SCH ×2 (10:17→17:38)
[2020-05-30] MEDS: DULoxetine 30 MG CAP PO SCH ×2 (10:18→20:38)
[2020-05-30] MEDS: Isosorbide Dinitrate 20 MG TAB PO SCH ×3 (10:18→20:38)
[2020-05-30] MEDS: Tamsulosin HCl 0.4 MG CAP PO SCH (10:18)
[2020-05-30] MEDS: Aspirin 81 mg Enteric Coated Tablet PO SCH (10:19)
[2020-05-30] MEDS: Clopidogrel Bisulfate 75 MG TAB PO SCH (10:19)
[2020-05-30] MEDS: Insulin Glargine 60 UNITS in Pre-Filled Syringe 1 EACH SC SCH ×2 (10:24→14:02)
[2020-05-30] MEDS: hydrALAZINE 25 MG TAB PO SCH ×2 (14:57→20:38)
[2020-05-30] MEDS: HumaLOG 300 UNITS/3 ML VIAL SC PRN (17:40)
[2020-05-30] MEDS: Atorvastatin Calcium 40 MG TAB PO SCH (20:38)
[2020-05-31 04:37] LABS: #Eosinphils 0.1 thou/uL (0.0-0.7); #Lymphocytes 2.1 thou/uL (1.20-3.40); #Monocytes 0.6 thou/uL (0.11-0.59); #Neutrophils 4.9 thou/uL (1.40-6.50); %Basophils 0.2 % (0.0-1.0); %Eosinophils 1.8 % (0.0-10.0); %Lymphocytes 26.8 % (21.0-51.0); %Monocytes 7.6 % (0.0-10.0); %Neutrophils 63.7 % (42.0-75.0); Hemoglobin 9.6 g/dL (14.0-18.0); Mean Corpuscular HGB CONC 32.1 g/dL (32.0-36.0); Mean Corpuscular Hemoglobin 26.9 pg (27.0-31.0); Mean Corpuscular Volume 83.7 fL (78.0-98.0); Mean Platelet Volume 9.3 fL (7.4-10.4); Platelet Count 147 thou/uL (130-400); RBC Distribution Width 12.6 % (11.5-14.5); Red Blood Cell (RBC) Count 3.57 mill/uL (4.70-6.10); White Blood Cell (WBC) Count 7.7 thou/uL (4.8-10.8)
[2020-05-31 05:00] LABS: Anion Gap 13 mmol/L (10-20); BUN (Urea Nitrogen) 41 mg/dL (8.4-25.7); Calc. Creatinine Clearance 44 mL/min (70-130); Calcium 8.1 mg/dL (7.8-10.44); Carbon Dioxide 22 mmol/L (23-31); Chloride 108 mmol/L (98-107); Glucose 153 mg/dL (83-110); Potassium 4.1 mmol/L (3.5-5.1); Sodium 139 mmol/L (136-145)
[2020-05-31] MEDS: Carvedilol 6.25 MG TAB PO SCH ×2 (08:42→18:25)
[2020-05-31] MEDS: hydrALAZINE 25 MG TAB PO SCH ×3 (08:43→20:30)
[2020-05-31] MEDS: Clopidogrel Bisulfate 75 MG TAB PO SCH (08:43)
[2020-05-31] MEDS: Tamsulosin HCl 0.4 MG CAP PO SCH (08:43)
[2020-05-31] MEDS: DULoxetine 30 MG CAP PO SCH ×2 (08:43→20:30)
[2020-05-31] MEDS: Ferrous Sulfate 325 MG TAB PO SCH ×2 (08:43→18:24)
[2020-05-31] MEDS: Aspirin 81 mg Enteric Coated Tablet PO SCH (08:44)
[2020-05-31] MEDS: Isosorbide Dinitrate 20 MG TAB PO SCH ×3 (08:44→20:30)
[2020-05-31] MEDS: Aspirin Chewable 81 MG TAB PO SCH (08:44)
[2020-05-31] MEDS: Insulin Glargine 30 UNITS in Pre-Filled Syringe 1 EACH SC SCH (08:47)
[2020-05-31] MEDS ORDERED: Amlodipine 5 MG TAB PO SCH (09:30)
[2020-05-31] MEDS ORDERED: Guaifenesin DM 100-10/5 ML UDCUP PO PRN (13:05)
[2020-05-31] MEDS: HumaLOG 300 UNITS/3 ML VIAL SC PRN ×3 (13:25→20:35)
[2020-05-31] MEDS: Acetaminophen 325 MG TAB PO PRN ×2 (13:38→20:30)
[2020-05-31] MEDS: Atorvastatin Calcium 40 MG TAB PO SCH (20:30)
[2020-05-31] MEDS: Gabapentin 300 MG CAP PO SCH (20:30)
[2020-05-31] MEDS ORDERED: traMADol HCl 50 MG TAB PO SCH (22:30)
[2020-05-31] MEDS ORDERED: Aspirin 81 mg Enteric Coated Tablet PO SCH (22:45)
[2020-06-01 04:36] LABS: #Eosinphils 0.1 thou/uL (0.0-0.7); #Monocytes 0.5 thou/uL (0.11-0.59); #Neutrophils 3.7 thou/uL (1.40-6.50); %Basophils 0.4 % (0.0-1.0); %Eosinophils 1.7 % (0.0-10.0); %Lymphocytes 30.8 % (21.0-51.0); %Monocytes 8.1 % (0.0-10.0); %Neutrophils 58.9 % (42.0-75.0); Hemoglobin 10.4 g/dL (14.0-18.0); Mean Corpuscular HGB CONC 31.7 g/dL (32.0-36.0); Mean Corpuscular Hemoglobin 26.5 pg (27.0-31.0); Mean Corpuscular Volume 83.4 fL (78.0-98.0); Mean Platelet Volume 9.3 fL (7.4-10.4); Platelet Count 160 thou/uL (130-400); RBC Distribution Width 12.6 % (11.5-14.5); Red Blood Cell (RBC) Count 3.94 mill/uL (4.70-6.10); White Blood Cell (WBC) Count 6.3 thou/uL (4.8-10.8)
[2020-06-01 04:42] LABS: Anion Gap 13 mmol/L (10-20); BUN (Urea Nitrogen) 43 mg/dL (8.4-25.7); Calc. Creatinine Clearance 46 mL/min (70-130); Calcium 8.5 mg/dL (7.8-10.44); Carbon Dioxide 22 mmol/L (23-31); Chloride 105 mmol/L (98-107); Glucose 167 mg/dL (83-110); Potassium 4.3 mmol/L (3.5-5.1); Sodium 136 mmol/L (136-145)
[2020-06-01] MEDS ORDERED: Amlodipine 5 MG TAB PO SCH (09:00)
[2020-06-01] MEDS ORDERED: cloNIDine 0.1 MG TAB PO SCH (09:00)
[2020-06-01] MEDS: Gabapentin 300 MG CAP PO SCH ×2 (10:16→20:50)
[2020-06-01] MEDS: Aspirin Chewable 81 MG TAB PO SCH (10:16)
[2020-06-01] MEDS: Ferrous Sulfate 325 MG TAB PO SCH ×2 (10:18→16:09)
[2020-06-01] MEDS: Clopidogrel Bisulfate 75 MG TAB PO SCH (10:18)
[2020-06-01] MEDS: Carvedilol 6.25 MG TAB PO SCH ×2 (10:24→16:07)
[2020-06-01] MEDS: DULoxetine 30 MG CAP PO SCH ×2 (10:25→20:50)
[2020-06-01] MEDS: Amlodipine 5 MG TAB PO SCH (10:25)
[2020-06-01] MEDS: Tamsulosin HCl 0.4 MG CAP PO SCH (10:25)
[2020-06-01] MEDS: Minoxidil 2.5 MG TAB PO SCH (10:27)
[2020-06-01] MEDS: Isosorbide Dinitrate 20 MG TAB PO SCH ×3 (10:27→20:51)
[2020-06-01] MEDS: hydrALAZINE 25 MG TAB PO SCH ×3 (10:27→20:51)
[2020-06-01] MEDS: Insulin Glargine 30 UNITS in Pre-Filled Syringe 1 EACH SC SCH (10:27)
[2020-06-01] MEDS ORDERED: Iopamidol-370 76% 500 ML 1 ML ONE (11:36)
[2020-06-01] MEDS: HumaLOG 300 UNITS/3 ML VIAL SC PRN (17:37)
[2020-06-01] MEDS: Atorvastatin Calcium 40 MG TAB PO SCH (20:50)
[2020-06-02] MEDS: Amlodipine 5 MG TAB PO SCH (08:35)
[2020-06-02] MEDS: Ferrous Sulfate 325 MG TAB PO SCH ×2 (08:35→16:56)
[2020-06-02] MEDS: Carvedilol 6.25 MG TAB PO SCH ×2 (08:35→16:56)
[2020-06-02] MEDS: Aspirin Chewable 81 MG TAB PO SCH (08:35)
[2020-06-02] MEDS: Clopidogrel Bisulfate 75 MG TAB PO SCH (08:36)
[2020-06-02] MEDS: Gabapentin 300 MG CAP PO SCH ×2 (08:36→21:15)
[2020-06-02] MEDS: DULoxetine 30 MG CAP PO SCH ×2 (08:36→21:15)
[2020-06-02] MEDS: hydrALAZINE 25 MG TAB PO SCH ×3 (08:36→21:16)
[2020-06-02] MEDS: Minoxidil 2.5 MG TAB PO SCH (08:37)
[2020-06-02] MEDS: Insulin Glargine 30 UNITS in Pre-Filled Syringe 1 EACH SC SCH (08:37)
[2020-06-02] MEDS: Acetaminophen 325 MG TAB PO PRN ×3 (08:37→21:17)
[2020-06-02] MEDS: Isosorbide Dinitrate 20 MG TAB PO SCH ×3 (08:37→21:17)
[2020-06-02] MEDS: Tamsulosin HCl 0.4 MG CAP PO SCH (08:37)
[2020-06-02] MEDS: HumaLOG 300 UNITS/3 ML VIAL SC PRN ×3 (10:53→21:18)
[2020-06-02 16:52] LABS: Anion Gap 14 mmol/L (10-20); BUN (Urea Nitrogen) 53 mg/dL (8.4-25.7); Calc. Creatinine Clearance 44 mL/min (70-130); Calcium 8.1 mg/dL (7.8-10.44); Carbon Dioxide 22 mmol/L (23-31); Chloride 103 mmol/L (98-107); Glucose 245 mg/dL (83-110); Potassium 4.7 mmol/L (3.5-5.1); Sodium 134 mmol/L (136-145)
[2020-06-02 16:54] LABS: Cardiac Risk 2.5 (Less than 4.5)
[2020-06-02] MEDS: Atorvastatin Calcium 40 MG TAB PO SCH (21:15)
[2020-06-03 06:11] VITALS: BMI 37.5
[2020-06-03] MEDS: HumaLOG 300 UNITS/3 ML VIAL SC PRN ×2 (06:30→11:06)
[2020-06-03 08:01] VITALS: TEMP 97.1
[2020-06-03] MEDS: Aspirin Chewable 81 MG TAB PO SCH (09:00)
[2020-06-03] MEDS: Tamsulosin HCl 0.4 MG CAP PO SCH (09:00)
[2020-06-03] MEDS: Carvedilol 6.25 MG TAB PO SCH (09:00)
[2020-06-03] MEDS: Minoxidil 2.5 MG TAB PO SCH (09:00)
[2020-06-03] MEDS: Gabapentin 300 MG CAP PO SCH (09:00)
[2020-06-03] MEDS: Clopidogrel Bisulfate 75 MG TAB PO SCH (09:01)
[2020-06-03] MEDS: Ferrous Sulfate 325 MG TAB PO SCH (09:01)
[2020-06-03] MEDS: DULoxetine 30 MG CAP PO SCH (09:01)
[2020-06-03] MEDS: Amlodipine 5 MG TAB PO SCH (09:01)
[2020-06-03] MEDS: Insulin Glargine 30 UNITS in Pre-Filled Syringe 1 EACH SC SCH (09:02)
[2020-06-03] MEDS: hydrALAZINE 25 MG TAB PO SCH ×2 (09:02→14:15)
[2020-06-03] MEDS: Isosorbide Dinitrate 20 MG TAB PO SCH ×2 (09:02→14:16)
[2020-06-03 12:11] VITALS: BP 139/64
== END 2020-06-03 16:24 | DRG 64 ==
LOC: ERS 14:56 → ERHOLD 17:02 → 2NO 05-29 13:45 → OBSVTOIN 05-29 16:55
PROVIDERS: ADMIT Internal Medicine; ATTEND Internal Medicine
DX: I63.89 Other cerebral infarction (principal); I21.A1 Myocardial infarction type 2; Z20.822 Contact with and (suspected) exposure to COVID-19; Z66 Do not resuscitate; I12.9 Hypertensive chronic kidney disease with stage 1 through stage 4 chronic kidney disease, or unspecified chronic kidney disease; E11.22 Type 2 diabetes mellitus with diabetic chronic kidney disease; D63.1 Anemia in chronic kidney disease; I25.10 Atherosclerotic heart disease of native coronary artery without angina pectoris; E78.5 Hyperlipidemia, unspecified; I16.0 Hypertensive urgency; N18.30 Chronic kidney disease, stage 3 unspecified; J44.9 Chronic obstructive pulmonary disease, unspecified; E78.00 Pure hypercholesterolemia, unspecified; F41.9 Anxiety disorder, unspecified; I49.5 Sick sinus syndrome; R29.6 Repeated falls; Z95.0 Presence of cardiac pacemaker; Z88.6 Allergy status to analgesic agent; Z79.82 Long term (current) use of aspirin; Z79.899 Other long term (current) drug therapy; Z79.4 Long term (current) use of insulin; Z86.73 Personal history of transient ischemic attack (TIA), and cerebral infarction without residual deficits; Z86.711 Personal history of pulmonary embolism
CPT/HCPCS: 36415; 36416; 70496; 70498; 70551; 80048; 80053; 80061; 82553; 84484; 85025; 87635; 93005; 93010; 93306; 93880; 96374; 96375; 96376; G0378; J0360; J1815; Q9967; U0003; U0005